=== PATIENT | female | born 1935 | race Caucasian/White ===

== ENCOUNTER → 2017-04-19 | Outpatient (CLI) | payer OTHER ==
[~2017-04-19] MED LIST: ACEDIPPM; ACYC800 PO; ALBU.083IS IH; ALBU90OI6 INH; ALLEGRA ALLERG180 MG PO; ALLO100; ALLO100 PO; AMLO10 PO; AMLO5; AMLO5 PO; ASCO500 PO; BETA1; BETA1 PO; BILBERRY; BILBERRY PO; BUDE6HFA; BUDE6HFA INH; BUME1; BUME2; BUME2 PO; CALCAVITD PO; CALTRATE; CARI350 PO; CEFA500ER PO; CHOL10002 PO; CLOP75; CLOP75 PO; CRESTOR; CYAN1000 PO; CYAN500; CYAN500 PO; CYCL10 PO; Cinnamon500 MG PO; DOCU100 PO; DOXE0.5; ESOM20; ESOM20 PO; FERR325 PO; FISH1000; FISH1000 PO; FLUT.05NI; FOSI10; GABA100; GABA100 PO; GABA400; GLIP5 PO; Glucosamine Ch1 EAC4 PO; HYDACE5 PO; IRON; IRON150C; LORPSEER24; LOSA50; LOSA50 PO; LUTEIN; MAGGLU250; MAGOXI400 PO; METPRE4DP PO; NIAC500; NIFE60ER; OCUVITE EYE +1 EACH PO; OMEP40CA12 PO; OMEPRAZOLE MAGN20 MG PO; OXYACE5T PO; OXYGEN; PARI1 PO; POTA10T; POTCHL20ER PO; PRAV20; PRED20 PO; QUIN300 PO; ROSU10TA PO; SALM50IP; SOMA250 MG PO; STOMUL PO; TIOT18; TIOT18 IH; TIOT18 INH; TRAM50 PO; Ultram50 MG PO; VALS80; VALS80 PO; ZOLP6.25 PO; [UNRECOGNIZED DRUG - OTHER]
== END ==
LOC: LAB 17:54
DX: N39.0 Urinary tract infection, site not specified (principal)
CPT/HCPCS: 87077; 87086; 87186

== ENCOUNTER → 2017-05-01 | Outpatient (CLI) | payer OTHER ==
[2017-05-01 13:21] LABS: Bilirubin, Urine Neg (Neg); Blood, Urine Neg (Neg); Glucose Qualitative, Urine Neg (Neg); Ketones, Urine Neg (Neg); Leukocyte Esterase, Urine 2+ (Neg); Nitrite, Urine Neg (Neg); Protein, Urine 2+ (Neg); Specific Gravity, Urine 1.015 (1.003-1.022); Urobilinogen, Urine NORM (Normal)
[2017-05-01 13:47] LABS: Appearance, Urine Clear (Clear); Color, Urine Yellow (P-Yellow)
[2017-05-01 13:49] LABS: Bacteria Few /hpf; Red Blood Cells, Urine Not Seen /hpf (0-2); Squamous Epithelial Cells Rare /hpf (Few)
== END ==
LOC: LAB 10:20
PROVIDERS: Nurse Practitioner Family
DX: N39.0 Urinary tract infection, site not specified (principal)
CPT/HCPCS: 81001; 87086

== ENCOUNTER → 2017-05-14 | Outpatient (CLI) | payer OTHER ==
[~2017-05-14] MED LIST changes: -CYAN500 PO; -METPRE4DP PO; -Ultram50 MG PO
== END | disposition home or self-care (01) ==
LOC: LAB SHORT 17:49 → LAB 17:49
DX: N39.0 Urinary tract infection, site not specified (principal)
CPT/HCPCS: 87086

== ENCOUNTER 2017-06-08 08:06 | Emergency (ER) | payer OTHER ==
[~2017-06-08] VITALS: Ht 165.1 cm; Wt 78.9 kg
[2017-06-08] MEDS ORDERED: ALLEGRA ALLERG180 MG PO (08:19)
[2017-06-08] MEDS ORDERED: ROSU10TA PO (08:24)
[2017-06-08] MEDS ORDERED: IRON150C (08:24)
[2017-06-08] MEDS ORDERED: CYAN500 PO (08:24)
[2017-06-08] MEDS ORDERED: TIOT18 INH (08:28)
[2017-06-08] MEDS ORDERED: GLIP5 PO (08:28)
[2017-06-08] MEDS ORDERED: MAGOXI400 PO (08:28)
[2017-06-08] MEDS ORDERED: METPRE4DP PO (10:00)
[2017-06-08] MEDS ORDERED: Ultram50 MG PO (10:00)
== END 2017-06-08 11:33 | disposition home or self-care (01) ==
LOC: ER 08:06
DX: M54.16 Radiculopathy, lumbar region (principal); Z88.6 Allergy status to analgesic agent; Z88.2 Allergy status to sulfonamides; Z88.8 Allergy status to other drugs, medicaments and biological substances; Z79.899 Other long term (current) drug therapy; Z86.73 Personal history of transient ischemic attack (TIA), and cerebral infarction without residual deficits; Z87.891 Personal history of nicotine dependence
CPT/HCPCS: 72100; 73502; 96372; 99283; J1100

== ENCOUNTER → 2018-02-21 | Outpatient (CLI) | payer OTHER ==
[~2018-02-21] MED LIST changes: +CYAN500 PO; +METPRE4DP PO; +Ultram50 MG PO
[2018-02-21 18:10] LABS: Bilirubin, Urine Neg (Neg); Blood, Urine Neg (Neg); Glucose Qualitative, Urine Neg (Neg); Ketones, Urine Neg (Neg); Leukocyte Esterase, Urine 1+ (Neg); Nitrite, Urine Neg (Neg); Protein, Urine 1+ (Neg); Specific Gravity, Urine 1.015 (1.003-1.022); Urobilinogen, Urine NORM (Normal)
[2018-02-21 18:44] LABS: Appearance, Urine Clear (Clear); Color, Urine Yellow (P-Yellow)
[2018-02-21 18:47] LABS: Bacteria Not Seen /hpf; Red Blood Cells, Urine Not Seen /hpf (0-2); Squamous Epithelial Cells Few /hpf (Few)
== END | disposition home or self-care (01) ==
LOC: LAB SHORT 10:59 → LAB 10:59 → LAB FUT 02-14 15:10
PROVIDERS: Nurse Practitioner Family
DX: R50.9 Fever, unspecified (principal)
CPT/HCPCS: 81001

== ENCOUNTER 2018-04-11 10:39 | Inpatient (IN) | payer OTHER ==
[~2018-04-11] VITALS: Ht 165.1 cm; Wt 71.2 kg
[~2018-04-11 10:39] MED LIST changes: +FISH OIL 1,2001 EAC4 PO; -FISH1000 PO; +GLUCOSAMINE CH1 EACH PO; -Glucosamine Ch1 EAC4 PO; +Magnesium500 MG PO; -SOMA250 MG PO; +SOMA350 MG PO; -VALS80 PO; +VALSARTAN40 MG PO
[2018-04-11 10:56] LABS: BASOPHILS ABSOLUTE AUTO 0.03 K/mm3 (0.00-0.23); BASOPHILS PERCENT AUTO 0 % (0-2); EOSINOPHILS ABSOLUTE AUTO 0.18 K/mm3 (0.00-0.68); EOSINOPHILS PERCENT AUTO 2 % (0-6); Hematocrit 35.3 % (33.0-51.0); Hemoglobin 10.8 g/dL (11.5-16.0); IMMATURE GRAN ABSOLUTE AUTO 0.05 K/mm3 (0.00-0.10); IMMATURE GRAN PERCENT AUTO 1 % (0-1); LYMPHOCYTES ABSOLUTE AUTO 1.74 K/mm3 (0.84-5.20); LYMPHOCYTES PERCENT AUTO 16 % (21-46); MONOCYTES ABSOLUTE AUTO 0.95 K/mm3 (0.16-1.47); MONOCYTES PERCENT AUTO 9 % (4-13); Mean Corpuscular HGB 28.6 pg (26.0-34.0); Mean Corpuscular HGB Conc 30.6 g/dL (31.5-36.5); Mean Corpuscular Volume 93 fL (80-100); Mean Platelet Volume 10.1 fL (9.1-12.4); NEUTROPHILS ABSOLUTE AUTO 8.06 K/mm3 (1.96-9.15); NEUTROPHILS PERCENT AUTO 73 % (41-73); Platelet Count 150 K/mm3 (150-400); RDW Standard Deviation 51.5 fL (35.1-46.3); Red Blood Cell Count 3.78 M/mm3 (3.80-5.20); White Blood Cell Count 11.01 K/mm3 (4.00-11.30)
[2018-04-11] MEDS ORDERED: OCUVITE EYE +1 EACH PO (11:22)
[2018-04-11 11:26] LABS: Alanine Aminotransfer (ALT/SGP 15 U/L (12-78); Albumin, Blood 3.2 g/dL (3.4-5.0); Albumin/Globulin Ratio 0.9 (0.8-1.8); Alk Phos 56 U/L (50-136); Anion Gap 8 mmol/L (6-16); Aspartate Aminotrans (AST/SGOT 14 U/L (12-37); Bilirubin, Total 0.5 mg/dL (0.1-1.0); Blood Urea Nitrogen 56 mg/dL (8-24); Bun/Creatinine Ratio 20.5 (12.0-20.0); CO2, Blood 28 mmol/L (21-32); Calcium, Blood 11.3 mg/dL (8.5-10.1); Chloride, Blood 102 mmol/L (98-108); Creatinine, Blood 2.73 mg/dL (0.40-1.00); Globulin, Blood 3.6 g/dL (2.2-4.0); Glomerular Filtration Rate 18 (60-); Glucose, Blood 154 mg/dL (70-99); Potassium, Blood 3.9 mmol/L (3.5-5.5); Sodium, Blood 138 mmol/L (136-145); Total Protein, Blood 6.8 g/dL (6.4-8.2); Troponin I <0.015 ng/mL (0.000-0.040)
[2018-04-11] MEDS ORDERED: TRAM50 PO (14:08)
--- NOTE | 2018-04-11 19:25 | NUR ---
SHIFT SUMMARY. 1644 PT ADMITTED TO MEDICAL FLOOR VIA GURNEY, TRANSFERED WITH SLIDER SHEET TO BED WITH 3 STAFF. A&OX3, PLEASANT, REPORTS FEELING TIRED. PT ON 2L O2 NC, REPORTS USING 2L O2 NC ONLY WITH SLEEP SECONDARY TO FATEMEH. LUNGS COARSE THROUGHOUT. NO OPEN AREAS OF SKIN.
[2018-04-12 05:15] LABS: BASOPHILS ABSOLUTE AUTO 0.02 K/mm3 (0.00-0.23); BASOPHILS PERCENT AUTO 0 % (0-2); EOSINOPHILS PERCENT AUTO 0 % (0-6); Hematocrit 29.1 % (33.0-51.0); Hemoglobin 9.2 g/dL (11.5-16.0); IMMATURE GRAN ABSOLUTE AUTO 0.04 K/mm3 (0.00-0.10); IMMATURE GRAN PERCENT AUTO 0 % (0-1); LYMPHOCYTES ABSOLUTE AUTO 0.83 K/mm3 (0.84-5.20); LYMPHOCYTES PERCENT AUTO 8 % (21-46); MONOCYTES ABSOLUTE AUTO 0.36 K/mm3 (0.16-1.47); MONOCYTES PERCENT AUTO 3 % (4-13); Mean Corpuscular HGB 28.8 pg (26.0-34.0); Mean Corpuscular HGB Conc 31.6 g/dL (31.5-36.5); Mean Corpuscular Volume 91 fL (80-100); Mean Platelet Volume 10.7 fL (9.1-12.4); NEUTROPHILS ABSOLUTE AUTO 9.43 K/mm3 (1.96-9.15); NEUTROPHILS PERCENT AUTO 88 % (41-73); Platelet Count 125 K/mm3 (150-400); RDW Coefficient Variation 15.1 % (11.7-14.2); RDW Standard Deviation 50.4 fL (35.1-46.3); Red Blood Cell Count 3.19 M/mm3 (3.80-5.20); White Blood Cell Count 10.68 K/mm3 (4.00-11.30)
--- NOTE | 2018-04-12 05:40 | NUR ---
SHIFT SUMMARY PT HAS SLEPT THROUGHOUT THE SHIFT. PT IS ON CONTINOUS SPO2 AND HAD NO SIGNIFCANT ALARMS. PT HAD NO COMPLAINTS OTHER THAN BEING VERY TIRED. PT HAD NO ACUTE ISSUES NOTED. PT IS CURRENTLY SLEEPING AND BREATHING EASY. CALL LIGHT IN REACH.
[2018-04-12 05:53] LABS: Albumin, Blood 2.7 g/dL (3.4-5.0); Albumin/Globulin Ratio 0.8 (0.8-1.8); Bilirubin, Total 0.2 mg/dL (0.1-1.0); Calcium, Blood 10.4 mg/dL (8.5-10.1); Creatinine, Blood 2.57 mg/dL (0.40-1.00); Globulin, Blood 3.5 g/dL (2.2-4.0); Potassium, Blood 4.1 mmol/L (3.5-5.5); Total Protein, Blood 6.2 g/dL (6.4-8.2)
--- NOTE | 2018-04-12 18:16 | NUR ---
SHIFT SUMMARY. A&OX3, PLEASANT, AWARE OF LIMIATIONS. PT DENIES SOB, NV. PT REPORTED PAIN TO THROAT THIS AM THAT WAS RELIEVED WITH APAP. TOLERATING IV ANTIBIOTICS WITHOUT ISSUE, CONTINUES WITH GENTLE IV HYDRATION. PLAN IS FOR PT TO D/C TO SNF, SS WORKING ON ADVANCED D/C PLANNING.
--- NOTE | 2018-04-13 05:14 | NUR ---
82 FEMALE PLEASANT AND COOPERATIVE ALL EVENING WITH STAFF. PT USED CALL LIGHT FOR ALL ASSISTANCE, DENIES PAIN, NAUSEA. PT WEARING 2L/M PER NASAL CANNULA ALL EVENING, NO COUGH NOTED--SPUTUM CULTURE STILL REQUIRED. PTS LUNG SOUNDS ARE COARSE THROUGHOUT. PT IS PLANNED FOR POSSIBLE DISCHARGE TO SNF. PTS BED LOW POSITION WIH CALL LIGHT AT SIDE.
--- NOTE | 2018-04-13 10:00 | NUR ---
PLEASANT COOP A/O. LIGHT BACK PAIN. MEDICATED WITH TYLENOL. H/R REG, MURMER NOTED. NO TELE. LUNGS CLEAR EXCEPT LIGHT CRACKLES LOW RT. ON 2L 02. REWP EASY, UNLABORED. BT X4 LAST BM YEST. VOIDS INCONT. IN ATTENDS. BED IN LOW POSTIION, CALL LITE IN REACH, CALLS APPROP
--- NOTE | 2018-04-13 13:30 | NUR ---
REPORT CALLED TO MERYL AT [facility]. IV PULLED INTACT. NO TELE. PEND PT TX TO [facility].
[2018-04-13] MEDS ORDERED: CEFU500T30 PO (13:35)
== END 2018-04-13 13:50 | DRG 683 ==
LOC: ER 10:39 → MEDS 14:32 → ER 16:36 → MEDS 16:36
PROVIDERS: Emergency Medicine; ADMIT Hospitalist
DX: N17.9 Acute kidney failure, unspecified (principal); J44.1 Chronic obstructive pulmonary disease with (acute) exacerbation; E86.0 Dehydration; Z99.81 Dependence on supplemental oxygen; I25.10 Atherosclerotic heart disease of native coronary artery without angina pectoris; K21.0 Gastro-esophageal reflux disease with esophagitis; G47.33 Obstructive sleep apnea (adult) (pediatric); I12.9 Hypertensive chronic kidney disease with stage 1 through stage 4 chronic kidney disease, or unspecified chronic kidney disease; E11.22 Type 2 diabetes mellitus with diabetic chronic kidney disease; N18.3 Chronic kidney disease, stage 3 (moderate); Z87.891 Personal history of nicotine dependence; E78.5 Hyperlipidemia, unspecified; E11.42 Type 2 diabetes mellitus with diabetic polyneuropathy; I35.0 Nonrheumatic aortic (valve) stenosis; R54 Age-related physical debility; R00.0 Tachycardia, unspecified
CPT/HCPCS: 36415; 71046; 80053; 82947; 84145; 84484; 85025; 93005; 93010; 94640; 94644; 94645; 94664; 94667; 94762; 96361; 96374; 97162; 97165; 97530; 98960; 99285-25; J0456; J0696; J1650; J2920; J2930; J7030; J7050

== ENCOUNTER 2018-05-27 10:25 | Emergency (ER) | payer OTHER ==
[~2018-05-27] VITALS: Ht 165.1 cm; Wt 71.2 kg
[~2018-05-27 10:25] MED LIST changes: +CEFU500T30 PO
[2018-05-27 10:58] LABS: BASOPHILS ABSOLUTE AUTO 0.03 K/mm3 (0.00-0.23); BASOPHILS PERCENT AUTO 0 % (0-2); EOSINOPHILS ABSOLUTE AUTO 0.07 K/mm3 (0.00-0.68); EOSINOPHILS PERCENT AUTO 1 % (0-6); Hematocrit 34.5 % (33.0-51.0); IMMATURE GRAN ABSOLUTE AUTO 0.06 K/mm3 (0.00-0.10); IMMATURE GRAN PERCENT AUTO 1 % (0-1); LYMPHOCYTES ABSOLUTE AUTO 0.78 K/mm3 (0.84-5.20); LYMPHOCYTES PERCENT AUTO 8 % (21-46); MONOCYTES ABSOLUTE AUTO 0.79 K/mm3 (0.16-1.47); MONOCYTES PERCENT AUTO 8 % (4-13); Mean Corpuscular HGB 29.9 pg (26.0-34.0); Mean Corpuscular Volume 103 fL (80-100); Mean Platelet Volume 9.8 fL (9.1-12.4); NEUTROPHILS ABSOLUTE AUTO 8.68 K/mm3 (1.96-9.15); NEUTROPHILS PERCENT AUTO 83 % (41-73); Platelet Count 128 K/mm3 (150-400); RDW Coefficient Variation 15.3 % (11.7-14.2); RDW Standard Deviation 57.5 fL (35.1-46.3); Red Blood Cell Count 3.34 M/mm3 (3.80-5.20); White Blood Cell Count 10.41 K/mm3 (4.00-11.30)
[2018-05-27 11:26] LABS: Albumin, Blood 2.9 g/dL (3.4-5.0); Albumin/Globulin Ratio 0.8 (0.8-1.8); Bilirubin, Total 0.5 mg/dL (0.1-1.0); Bun/Creatinine Ratio 13.3 (12.0-20.0); Calcium, Blood 9.5 mg/dL (8.5-10.1); Creatinine, Blood 1.88 mg/dL (0.40-1.00); Globulin, Blood 3.8 g/dL (2.2-4.0); Total Protein, Blood 6.7 g/dL (6.4-8.2)
[2018-05-27 12:24] LABS: Source, Urine Clean Catch
[2018-05-27 12:28] LABS: Bilirubin, Urine Neg (Neg); Blood, Urine Neg (Neg); Glucose Qualitative, Urine Neg (Neg); Ketones, Urine Neg (Neg); Leukocyte Esterase, Urine 1+ (Neg); Nitrite, Urine Neg (Neg); Protein, Urine 2+ (Neg); Specific Gravity, Urine 1.015 (1.003-1.022); Urobilinogen, Urine NORM (Normal)
[2018-05-27 12:47] LABS: Appearance, Urine Hazy (Clear); Bacteria Rare /hpf; Color, Urine Yellow (P-Yellow); Red Blood Cells, Urine Not Seen /hpf (0-2); Squamous Epithelial Cells Rare /hpf (Few); White Blood Cells, Urine 0-2 /hpf (0-5)
[2018-05-27 12:48] LABS: Granular Casts 0-2 /lpf ({null, 0}); Hyaline Casts 0-2 /lpf (0-2); Transitional Epithelial Cells Rare /hpf ({null, 0-Rare})
== END 2018-05-27 14:38 | disposition home or self-care (01) ==
LOC: ER 10:25
PROVIDERS: Emergency Medicine
DX: S09.90XA Unspecified injury of head, initial encounter (principal); N28.9 Disorder of kidney and ureter, unspecified; R53.1 Weakness; Z88.2 Allergy status to sulfonamides; Z88.6 Allergy status to analgesic agent; Z88.8 Allergy status to other drugs, medicaments and biological substances; Z79.899 Other long term (current) drug therapy; Z79.84 Long term (current) use of oral hypoglycemic drugs; Z86.73 Personal history of transient ischemic attack (TIA), and cerebral infarction without residual deficits; Z87.891 Personal history of nicotine dependence; W19.XXXA Unspecified fall, initial encounter
CPT/HCPCS: 70450; 80053; 81001; 83690; 85025; 87086; 93005; 93010; 99284-25

== ENCOUNTER 2018-07-13 19:40 | Emergency (ER) | payer OTHER ==
[~2018-07-13] VITALS: Ht 167.6 cm; Wt 75.8 kg
[2018-07-13] MEDS ORDERED: Carisoprodol350 MG (20:06)
[2018-07-13] MEDS ORDERED: GLUC500 PO (20:08)
[2018-07-13] MEDS ORDERED: IRON150C PO (20:08)
[2018-07-13] MEDS ORDERED: PARI1 PO (20:08)
[2018-07-13 20:10] LABS: BASOPHILS ABSOLUTE AUTO 0.01 K/mm3 (0.00-0.23); BASOPHILS PERCENT AUTO 0 % (0-2); EOSINOPHILS ABSOLUTE AUTO 0.21 K/mm3 (0.00-0.68); EOSINOPHILS PERCENT AUTO 2 % (0-6); Hematocrit 32.7 % (33.0-51.0); Hemoglobin 10.3 g/dL (11.5-16.0); IMMATURE GRAN ABSOLUTE AUTO 0.04 K/mm3 (0.00-0.10); IMMATURE GRAN PERCENT AUTO 0 % (0-1); LYMPHOCYTES ABSOLUTE AUTO 2.42 K/mm3 (0.84-5.20); LYMPHOCYTES PERCENT AUTO 26 % (21-46); MONOCYTES ABSOLUTE AUTO 0.66 K/mm3 (0.16-1.47); MONOCYTES PERCENT AUTO 7 % (4-13); Mean Corpuscular HGB Conc 31.5 g/dL (31.5-36.5); Mean Corpuscular Volume 92 fL (80-100); Mean Platelet Volume 9.8 fL (9.1-12.4); NEUTROPHILS PERCENT AUTO 64 % (41-73); Platelet Count 186 K/mm3 (150-400); RDW Coefficient Variation 14.6 % (11.7-14.2); RDW Standard Deviation 49.9 fL (35.1-46.3); Red Blood Cell Count 3.55 M/mm3 (3.80-5.20); White Blood Cell Count 9.34 K/mm3 (4.00-11.30)
[2018-07-13 20:35] LABS: Alanine Aminotransfer (ALT/SGP 17 U/L (12-78); Albumin, Blood 3.4 g/dL (3.4-5.0); Albumin/Globulin Ratio 0.9 (0.8-1.8); Alk Phos 69 U/L (50-136); Anion Gap 7 mmol/L (6-16); Aspartate Aminotrans (AST/SGOT 13 U/L (12-37); Bilirubin, Total 0.5 mg/dL (0.1-1.0); Blood Urea Nitrogen 28 mg/dL (8-24); Bun/Creatinine Ratio 17.1 (12.0-20.0); CO2, Blood 30 mmol/L (21-32); Calcium, Blood 9.8 mg/dL (8.5-10.1); Chloride, Blood 95 mmol/L (98-108); Creatinine, Blood 1.64 mg/dL (0.40-1.00); Globulin, Blood 3.6 g/dL (2.2-4.0); Glomerular Filtration Rate 32 (60-); Glucose, Blood 94 mg/dL (70-99); Potassium, Blood 3.5 mmol/L (3.5-5.5); Sodium, Blood 132 mmol/L (136-145); Troponin I <0.015 ng/mL (0.000-0.040)
== END 2018-07-13 22:47 | disposition home or self-care (01) ==
LOC: ER 19:40
PROVIDERS: Emergency Medicine
DX: R53.1 Weakness (principal); R55 Syncope and collapse; E16.2 Hypoglycemia, unspecified; Z88.6 Allergy status to analgesic agent; Z88.8 Allergy status to other drugs, medicaments and biological substances; Z88.5 Allergy status to narcotic agent; Z79.899 Other long term (current) drug therapy; Z79.84 Long term (current) use of oral hypoglycemic drugs; Z79.01 Long term (current) use of anticoagulants; Z86.73 Personal history of transient ischemic attack (TIA), and cerebral infarction without residual deficits; Z87.891 Personal history of nicotine dependence
CPT/HCPCS: 36415; 71046; 80053; 82947; 84484; 85025; 93005; 93010; 99284-25

== ENCOUNTER → 2018-08-08 | Outpatient (CLI) | payer OTHER ==
[~2018-08-08] MED LIST changes: +ALBU90OI INH; +AZIT250 PO; +Acetaminophen325 M1 PO; +B-COMPLEX WITH1 EAC1 PO; +BILBERRY EXTRACT PO; +BUDE10.22 INH; +Bumetanide1 MG; +Bumetanide1 MG PO; -CALCAVITD PO; +CALCIUM CITRAT1 EAC3 PO; +CEFD300 PO; +COLCHICINE0.6 MG PO; +Carisoprodol350 MG; +Colace100 MG PO; +Crestor20 MG PO; +FISH OIL 1,001000 MG PO; -FISH OIL 1,2001 EAC4 PO; +GLUC500 PO; +IRON150C PO; +IROSPAN 24/6 T1 EACH PO; +Iron Chews15 MG PO; +LOSA25 PO; +Lotrel 10-20 M1 EACH PO; +MITIGARE0.6 MG PO; +Magnesium Oxid500 MG PO; +Magnesium500 M1 PO; -Magnesium500 MG PO; +OMEP20ER PO; +OYSTER SHELL 51 EACH PO; +POTCHL20ER; +PROBIOTIC1 EAC1 PO; +SENN187 PO; +Sea-Omega 30 C1 EACH PO; +VISION FORMULA1 EACH PO; +Voltaren100 GM TOP
== END ==
LOC: LAB SHORT 18:21 → LAB 18:21
DX: R30.0 Dysuria (principal)
CPT/HCPCS: 87077; 87086; 87186

== ENCOUNTER 2018-08-16 13:22 | Inpatient (IN) | payer OTHER ==
[~2018-08-16] VITALS: Ht 167.6 cm; Wt 76.3 kg
[~2018-08-16 13:22] MED LIST changes: -ALBU90OI INH; -AZIT250 PO; -Acetaminophen325 M1 PO; -B-COMPLEX WITH1 EAC1 PO; -BILBERRY EXTRACT PO; -BUDE6HFA INH; -Bumetanide1 MG; -CEFD300 PO; -COLCHICINE0.6 MG PO; -Colace100 MG PO; -FISH OIL 1,001000 MG PO; -IROSPAN 24/6 T1 EACH PO; -Iron Chews15 MG PO; -LOSA25 PO; -Lotrel 10-20 M1 EACH PO; -MITIGARE0.6 MG PO; -Magnesium500 M1 PO; -OMEP20ER PO; -OYSTER SHELL 51 EACH PO; -POTCHL20ER; -PROBIOTIC1 EAC1 PO; -SENN187 PO; -VISION FORMULA1 EACH PO; -Voltaren100 GM TOP
[2018-08-16] MEDS ORDERED: COLCHICINE0.6 MG PO ×2 (13:55)
[2018-08-16 14:06] LABS: BASOPHILS ABSOLUTE AUTO 0.03 K/mm3 (0.00-0.23); BASOPHILS PERCENT AUTO 0 % (0-2); EOSINOPHILS ABSOLUTE AUTO 0.09 K/mm3 (0.00-0.68); EOSINOPHILS PERCENT AUTO 1 % (0-6); Hematocrit 35.6 % (33.0-51.0); Hemoglobin 11.2 g/dL (11.5-16.0); IMMATURE GRAN ABSOLUTE AUTO 0.07 K/mm3 (0.00-0.10); IMMATURE GRAN PERCENT AUTO 1 % (0-1); LYMPHOCYTES ABSOLUTE AUTO 1.19 K/mm3 (0.84-5.20); LYMPHOCYTES PERCENT AUTO 12 % (21-46); MONOCYTES ABSOLUTE AUTO 0.69 K/mm3 (0.16-1.47); MONOCYTES PERCENT AUTO 7 % (4-13); Mean Corpuscular HGB 28.8 pg (26.0-34.0); Mean Corpuscular HGB Conc 31.5 g/dL (31.5-36.5); Mean Corpuscular Volume 92 fL (80-100); Mean Platelet Volume 10.2 fL (9.1-12.4); NEUTROPHILS ABSOLUTE AUTO 8.08 K/mm3 (1.96-9.15); NEUTROPHILS PERCENT AUTO 80 % (41-73); Platelet Count 127 K/mm3 (150-400); RDW Coefficient Variation 15.5 % (11.7-14.2); RDW Standard Deviation 51.5 fL (35.1-46.3); Red Blood Cell Count 3.89 M/mm3 (3.80-5.20); White Blood Cell Count 10.15 K/mm3 (4.00-11.30)
[2018-08-16 14:30] LABS: Alanine Aminotransfer (ALT/SGP 26 U/L (12-78); Albumin, Blood 2.8 g/dL (3.4-5.0); Albumin/Globulin Ratio 0.8 (0.8-1.8); Alk Phos 66 U/L (50-136); Anion Gap 7 mmol/L (6-16); Aspartate Aminotrans (AST/SGOT 21 U/L (12-37); Bilirubin, Total 0.4 mg/dL (0.1-1.0); Blood Urea Nitrogen 35 mg/dL (8-24); Bun/Creatinine Ratio 21.7 (12.0-20.0); CO2, Blood 29 mmol/L (21-32); Calcium, Blood 8.9 mg/dL (8.5-10.1); Chloride, Blood 102 mmol/L (98-108); Creatinine, Blood 1.61 mg/dL (0.40-1.00); Globulin, Blood 3.3 g/dL (2.2-4.0); Glomerular Filtration Rate 33 (60-); Glucose, Blood 118 mg/dL (70-99); Potassium, Blood 3.7 mmol/L (3.5-5.5); Sodium, Blood 138 mmol/L (136-145); Total Protein, Blood 6.1 g/dL (6.4-8.2); Troponin I <0.015 ng/mL (0.000-0.040)
[2018-08-16 15:06] LABS: PCO2 Arterial 40.3 mmHg (35-45); PO2 Arterial 52.2 mmHg (80-100); pH Blood Arterial 7.48 (7.35-7.45)
--- NOTE | 2018-08-16 18:17 | NUR ---
PT ADMITTED 1615. QUITE PLEASANT THIS AFT. DENIES PAIN. LUNGS LIGHTLY WHEEZY T/O. LOUD MURMER NOTED. ON 2L O2 ONLY AT NIGHT NORMALLY, NOW IS ON 2L DAYS ALSO. 1 ASST BSC. BED IN LOW POSITION, CALL LITE IN REACH, CALLS APPROP
[2018-08-17 05:04] LABS: BASOPHILS ABSOLUTE AUTO 0.03 K/mm3 (0.00-0.23); BASOPHILS PERCENT AUTO 0 % (0-2); EOSINOPHILS PERCENT AUTO 0 % (0-6); Hematocrit 32.1 % (33.0-51.0); Hemoglobin 10.1 g/dL (11.5-16.0); IMMATURE GRAN ABSOLUTE AUTO 0.09 K/mm3 (0.00-0.10); IMMATURE GRAN PERCENT AUTO 1 % (0-1); LYMPHOCYTES ABSOLUTE AUTO 0.54 K/mm3 (0.84-5.20); LYMPHOCYTES PERCENT AUTO 5 % (21-46); MONOCYTES ABSOLUTE AUTO 0.23 K/mm3 (0.16-1.47); MONOCYTES PERCENT AUTO 2 % (4-13); Mean Corpuscular HGB 29.1 pg (26.0-34.0); Mean Corpuscular HGB Conc 31.5 g/dL (31.5-36.5); Mean Corpuscular Volume 93 fL (80-100); Mean Platelet Volume 10.3 fL (9.1-12.4); NEUTROPHILS ABSOLUTE AUTO 9.83 K/mm3 (1.96-9.15); NEUTROPHILS PERCENT AUTO 92 % (41-73); Platelet Count 126 K/mm3 (150-400); RDW Coefficient Variation 15.4 % (11.7-14.2); RDW Standard Deviation 52.3 fL (35.1-46.3); Red Blood Cell Count 3.47 M/mm3 (3.80-5.20); White Blood Cell Count 10.72 K/mm3 (4.00-11.30)
[2018-08-17 05:28] LABS: Albumin, Blood 2.6 g/dL (3.4-5.0); Albumin/Globulin Ratio 0.7 (0.8-1.8); Bilirubin, Total 0.3 mg/dL (0.1-1.0); Calcium, Blood 9.4 mg/dL (8.5-10.1); Creatinine, Blood 1.81 mg/dL (0.40-1.00); Globulin, Blood 3.7 g/dL (2.2-4.0); Magnesium, Blood 2.4 mg/dL (1.6-2.4); Potassium, Blood 4.2 mmol/L (3.5-5.5); Total Protein, Blood 6.3 g/dL (6.4-8.2)
--- NOTE | 2018-08-17 06:29 | NUR ---
SHIFT SUMMARY SPOKE TO CAREGIVER, ANGELINA, IN PATIENTS ROOM WITH PATIENT. ANGELINA STATES THAT PATIENT HAS A SLEEP STUDY SCHEDULED FOR SUNDAY NIGHT AND IS REQUESTING THE PHYSICIAN CALL HER TO SEE IF THE PATIENT MIGHT BE DISCHARGED BEFORE SUNDAY SO THAT SHE MAY HAVE THE SLEEP STUDY SCHEDULED. ANGELINA PHONE NUMBER [phone]. RECEIVED A CALL FROM CYDNEY CASTRO, PATIENTS DAUGHTER IN LAW, WHO STATES THAT IT IS OK FOR STAFF TO CALL ANGELINA REGARDING SLEEP STUDY BUT ANY MEDICAL QUESTIONS OR CONCERNS SHOULD BE DIRECTED TO HER (PHONE [phone]). PATIENT SLEPT THROUGH THE NIGHT WITH NO S/S OF DISTRESS.
[2018-08-17] MEDS ORDERED: CEFD300 PO ×2 (17:18)
[2018-08-17] MEDS ORDERED: AZIT250 PO ×2 (17:19)
[2018-08-17] MEDS ORDERED: PRED20 PO ×2 (17:20)
--- NOTE | 2018-08-17 18:43 | NUR ---
PT DISCHARGED THE PT VERBALIZED UNDERSTANDING OF THE DC INSTRUCTIONS, PTS PRESCRIPTIONS WERE FAXED TO [facility] REQUESTED, THE PT APPEARED TO BE BREATHING EASILY ON RA AT THE TIME OF DC, THE PT WAS TRANSFERD VIA WHEELCHAIR ACCOMPANIED BY THE HER GENETIC TECHNOLOGIST, PT WAS REMINDED TO CALL FOR FOLLOW UP APPOINTMENTS
== END 2018-08-17 18:48 | disposition home health service (06) | DRG 195 ==
LOC: ER 13:22 → MEDS 15:12 → ENPENDDIS 08-17 17:05 → MEDS 08-17 18:48
PROVIDERS: Emergency Medicine; ADMIT Student in an Organized Health Care Education/Training Program
DX: J18.9 Pneumonia, unspecified organism (principal); N18.3 Chronic kidney disease, stage 3 (moderate); E11.22 Type 2 diabetes mellitus with diabetic chronic kidney disease; J44.9 Chronic obstructive pulmonary disease, unspecified; E11.51 Type 2 diabetes mellitus with diabetic peripheral angiopathy without gangrene; E11.42 Type 2 diabetes mellitus with diabetic polyneuropathy; Z66 Do not resuscitate; K21.9 Gastro-esophageal reflux disease without esophagitis; G47.33 Obstructive sleep apnea (adult) (pediatric); E78.5 Hyperlipidemia, unspecified; I12.9 Hypertensive chronic kidney disease with stage 1 through stage 4 chronic kidney disease, or unspecified chronic kidney disease; E11.319 Type 2 diabetes mellitus with unspecified diabetic retinopathy without macular edema; I35.0 Nonrheumatic aortic (valve) stenosis; Z99.81 Dependence on supplemental oxygen; Z87.440 Personal history of urinary (tract) infections; Z88.6 Allergy status to analgesic agent; Z88.2 Allergy status to sulfonamides; Z87.891 Personal history of nicotine dependence; Z79.02 Long term (current) use of antithrombotics/antiplatelets; Z79.899 Other long term (current) drug therapy
CPT/HCPCS: 36415; 36600; 71046; 80053; 82803; 82947; 83605; 83735; 84484; 85025; 87040; 93005; 93010; 94640; 94760; 94761; 97116; 97161; 99285-25; J0456; J0696; J1650; J2930; J7050

== ENCOUNTER 2018-09-24 09:32 | Inpatient (IN) | payer OTHER ==
[~2018-09-24] VITALS: Ht 167.6 cm; Wt 73.9 kg
[~2018-09-24 09:32] MED LIST changes: +AZIT250 PO; +CEFD300 PO; +COLCHICINE0.6 MG PO
[2018-09-24 10:46] LABS: BASOPHILS ABSOLUTE AUTO 0.02 K/mm3 (0.00-0.23); BASOPHILS PERCENT AUTO 0 % (0-2); EOSINOPHILS ABSOLUTE AUTO 0.06 K/mm3 (0.00-0.68); EOSINOPHILS PERCENT AUTO 0 % (0-6); Hematocrit 37.1 % (33.0-51.0); Hemoglobin 11.5 g/dL (11.5-16.0); IMMATURE GRAN ABSOLUTE AUTO 0.08 K/mm3 (0.00-0.10); IMMATURE GRAN PERCENT AUTO 1 % (0-1); LYMPHOCYTES ABSOLUTE AUTO 0.93 K/mm3 (0.84-5.20); LYMPHOCYTES PERCENT AUTO 7 % (21-46); MONOCYTES ABSOLUTE AUTO 0.97 K/mm3 (0.16-1.47); MONOCYTES PERCENT AUTO 7 % (4-13); Mean Corpuscular HGB 28.8 pg (26.0-34.0); Mean Corpuscular Volume 93 fL (80-100); Mean Platelet Volume 9.8 fL (9.1-12.4); NEUTROPHILS ABSOLUTE AUTO 11.97 K/mm3 (1.96-9.15); NEUTROPHILS PERCENT AUTO 85 % (41-73); Platelet Count 187 K/mm3 (150-400); RDW Coefficient Variation 16.3 % (11.7-14.2); Red Blood Cell Count 3.99 M/mm3 (3.80-5.20); White Blood Cell Count 14.03 K/mm3 (4.00-11.30)
[2018-09-24 10:51] LABS: Source, Urine Catheter
[2018-09-24 10:56] LABS: Bilirubin, Urine Neg (Neg); Blood, Urine Neg (Neg); Glucose Qualitative, Urine Neg (Neg); Ketones, Urine Neg (Neg); Leukocyte Esterase, Urine Neg (Neg); Nitrite, Urine Neg (Neg); Protein, Urine Neg (Neg); Urobilinogen, Urine NORM (Normal)
[2018-09-24 10:57] LABS: Appearance, Urine Clear (Clear); Color, Urine Yellow (P-Yellow)
[2018-09-24 11:00] LABS: Albumin, Blood 3.2 g/dL (3.4-5.0); Albumin/Globulin Ratio 0.9 (0.8-1.8); Bilirubin, Total 0.5 mg/dL (0.1-1.0); Bun/Creatinine Ratio 11.2 (12.0-20.0); Calcium, Blood 8.5 mg/dL (8.5-10.1); Creatinine, Blood 1.6 mg/dL (0.40-1.00); Globulin, Blood 3.7 g/dL (2.2-4.0); Potassium, Blood 3.9 mmol/L (3.5-5.5); Total Protein, Blood 6.9 g/dL (6.4-8.2)
--- NOTE | 2018-09-24 15:16 | NUR ---
PT ARRIVED TO THE MEDICAL FLOOR FROM THE ER AROUND 1300, A/OX3, PLEASANT AND COOPERATIVE THE PT APPEARED TO BE BREATHING EASILY ON O2 @ 2L/MIN AT THIS TIME, THE PT WAS ORIENTED TO THE ROOM LAYOUT AND CALL SYSTEM, CALL LIGHT IN REACH, THE PT ANSWERED QUESTIONS APPROPRIATLY, PT DID NOT AMBULATE TO THE BED, SHA STATED THAT SHE WAS AFFRAID THAT SHE MIGHT FALL DUE TO LEG WEAKNESS, WILL CONTINUE TO MONITOR AND ASSESS FOR CHANGES
--- NOTE | 2018-09-24 17:27 | NUR ---
PT IS A/OX3, PLEASANT AND COOPERATIVE, THE PT IS UP WITH ASSIST, THE PT APPEARS TO BE BREATHING EASILY ON O2 @ 2L/MIN AT THIS TIME, NO COUGH NOTICED AT THIS TIME, THE PT WAS A NEW ER ADIMIT TODAY, PT REPORTS HAVING A FALL AT HOME TODAY, THE PT DENIES ANY PAIN AT THIS TIME, CALL LIGHT IN REACH WILL CONTINUE TO MONITOR FOR CHANGES
[2018-09-24] MEDS ORDERED: VISION FORMULA1 EACH PO (19:56)
[2018-09-24] MEDS ORDERED: Cinnamon500 MG PO (19:57)
[2018-09-24] MEDS ORDERED: Lotrel 10-20 M1 EACH PO (19:59)
[2018-09-24] MEDS ORDERED: Iron Chews15 MG PO (20:01)
[2018-09-25 05:24] LABS: BASOPHILS ABSOLUTE AUTO 0.02 K/mm3 (0.00-0.23); BASOPHILS PERCENT AUTO 0 % (0-2); EOSINOPHILS ABSOLUTE AUTO 0.05 K/mm3 (0.00-0.68); EOSINOPHILS PERCENT AUTO 0 % (0-6); Hematocrit 26.4 % (33.0-51.0); Hemoglobin 8.4 g/dL (11.5-16.0); IMMATURE GRAN ABSOLUTE AUTO 0.06 K/mm3 (0.00-0.10); IMMATURE GRAN PERCENT AUTO 1 % (0-1); LYMPHOCYTES ABSOLUTE AUTO 1.59 K/mm3 (0.84-5.20); LYMPHOCYTES PERCENT AUTO 14 % (21-46); MONOCYTES ABSOLUTE AUTO 0.69 K/mm3 (0.16-1.47); MONOCYTES PERCENT AUTO 6 % (4-13); Mean Corpuscular HGB 28.8 pg (26.0-34.0); Mean Corpuscular HGB Conc 31.8 g/dL (31.5-36.5); Mean Platelet Volume 9.5 fL (9.1-12.4); NEUTROPHILS ABSOLUTE AUTO 8.82 K/mm3 (1.96-9.15); NEUTROPHILS PERCENT AUTO 79 % (41-73); Platelet Count 118 K/mm3 (150-400); RDW Coefficient Variation 16.8 % (11.7-14.2); RDW Standard Deviation 55.6 fL (35.1-46.3); Red Blood Cell Count 2.92 M/mm3 (3.80-5.20); White Blood Cell Count 11.23 K/mm3 (4.00-11.30)
[2018-09-25 05:28] LABS: Mean Corpuscular Volume 90 fL (80-100)
[2018-09-25 05:48] LABS: Magnesium, Blood 2.2 mg/dL (1.6-2.4)
[2018-09-25 05:53] LABS: Anion Gap 7 mmol/L (6-16); Blood Urea Nitrogen 24 mg/dL (8-24); Bun/Creatinine Ratio 13.7 (12.0-20.0); CO2, Blood 26 mmol/L (21-32); Calcium, Blood 8.1 mg/dL (8.5-10.1); Chloride, Blood 108 mmol/L (98-108); Creatinine, Blood 1.75 mg/dL (0.40-1.00); Glomerular Filtration Rate 30 (60-); Glucose, Blood 109 mg/dL (70-99); Potassium, Blood 3.7 mmol/L (3.5-5.5); Sodium, Blood 141 mmol/L (136-145); Troponin I <0.015 ng/mL (0.000-0.040)
--- NOTE | 2018-09-25 06:47 | NUR ---
SHIFT SUMMARY PT IS AN 82 Y/O FEMALE, ADMITTED FOR PNA. SHE IS A&O X 3, AND ON BEDREST. SHE WAS MEDICATED ONCE WITH PRN TYLENOL FOR A HEADACHE. NO COMPLAINTS OF NAUSEA OR SOB. VITAL SIGNS WERE STABLE. PT HAD A POST VOID RESIDUAL BLADDER SCAN OF 883. AFTER CONSULTING HOSPITALIST DR WHITNEY, PT HAD A STRAIGHT CATH WITH 600 MLS OUT. PT'S HG DROPPED DURING THE NIGHT FROM 11.5 TO 8.4, AND HCT DROPPED FROM 37.1 TO 26.4. NO SIGNS OF ACTIVE BLEEDING, NO BLACK STOOLS NOTED. NO OTHER ACUTE CHANGES IN PT CONDITION NOTED. REPORT GIVEN TO ONCOMING RN.
--- NOTE | 2018-09-25 18:15 | NUR ---
PT IS A/OX3, PLEASANT AND COOPERATIVE, THE PT IS UP WITH ASSIST, THE PT APPEARS TO BE BREATHING EASILY ON O2 @ 2L/MIN VIA NC, TODAY THE PT WAS UP WITH THE PHYSICAL THERAPIST AND AMBULATED IN HER ROOM, THE PT WAS UP INTO THE CHAIR FOR MOST ALL OF THE DAY, THE PT WAS MEDICATED FOR DEWITT PAIN THIS AM X1, DEWITT RESOLVED AT THAT TIME, CALL LIGHT IN REACH, WILL CONTINUE TO MONITOR AND ASSESS FOR CHANGES
[2018-09-26] MEDS ORDERED: ALBU90OI INH (04:19)
[2018-09-26] MEDS ORDERED: AMLO10 PO (04:24)
[2018-09-26] MEDS ORDERED: BUDE6HFA INH (04:27)
[2018-09-26] MEDS ORDERED: Bumetanide1 MG (04:29)
[2018-09-26] MEDS ORDERED: POTCHL20ER (04:32)
[2018-09-26] MEDS ORDERED: CLOP75 PO (04:37)
[2018-09-26] MEDS ORDERED: GABA100 PO (05:10)
[2018-09-26] MEDS ORDERED: OMEP20ER PO (05:11)
[2018-09-26] MEDS ORDERED: ROSU10TA PO (05:12)
[2018-09-26] MEDS ORDERED: PARI1 PO (05:13)
[2018-09-26] MEDS ORDERED: MITIGARE0.6 MG PO (05:14)
[2018-09-26] MEDS ORDERED: FISH OIL 1,001000 MG PO (05:16)
[2018-09-26] MEDS ORDERED: SOMA350 MG PO (05:16)
[2018-09-26] MEDS ORDERED: IROSPAN 24/6 T1 EACH PO (05:20)
[2018-09-26] MEDS ORDERED: OYSTER SHELL 51 EACH PO (05:22)
[2018-09-26] MEDS ORDERED: Magnesium500 M1 PO (05:24)
[2018-09-26] MEDS ORDERED: Cinnamon500 MG PO ×2 (05:25→05:29)
[2018-09-26] MEDS ORDERED: ASCO500 PO (05:30)
[2018-09-26] MEDS ORDERED: PROBIOTIC1 EAC1 PO (05:32)
[2018-09-26] MEDS ORDERED: TIOT18 INH (05:33)
[2018-09-26] MEDS ORDERED: Voltaren100 GM TOP (05:36)
[2018-09-26] MEDS ORDERED: B-COMPLEX WITH1 EAC1 PO (05:37)
[2018-09-26] MEDS ORDERED: BILBERRY EXTRACT PO (05:38)
[2018-09-26 05:57] LABS: BASOPHILS ABSOLUTE AUTO 0.01 K/mm3 (0.00-0.23); BASOPHILS PERCENT AUTO 0 % (0-2); EOSINOPHILS ABSOLUTE AUTO 0.01 K/mm3 (0.00-0.68); EOSINOPHILS PERCENT AUTO 0 % (0-6); Hematocrit 25.5 % (33.0-51.0); Hemoglobin 8.2 g/dL (11.5-16.0); IMMATURE GRAN ABSOLUTE AUTO 0.05 K/mm3 (0.00-0.10); IMMATURE GRAN PERCENT AUTO 1 % (0-1); LYMPHOCYTES ABSOLUTE AUTO 1.13 K/mm3 (0.84-5.20); LYMPHOCYTES PERCENT AUTO 11 % (21-46); MONOCYTES ABSOLUTE AUTO 0.67 K/mm3 (0.16-1.47); MONOCYTES PERCENT AUTO 7 % (4-13); Mean Corpuscular HGB 28.6 pg (26.0-34.0); Mean Corpuscular HGB Conc 32.2 g/dL (31.5-36.5); Mean Corpuscular Volume 89 fL (80-100); Mean Platelet Volume 9.7 fL (9.1-12.4); NEUTROPHILS ABSOLUTE AUTO 8.37 K/mm3 (1.96-9.15); NEUTROPHILS PERCENT AUTO 82 % (41-73); Platelet Count 148 K/mm3 (150-400); RDW Coefficient Variation 16.3 % (11.7-14.2); RDW Standard Deviation 53.1 fL (35.1-46.3); Red Blood Cell Count 2.87 M/mm3 (3.80-5.20); White Blood Cell Count 10.24 K/mm3 (4.00-11.30)
[2018-09-26 06:19] LABS: Albumin, Blood 2.6 g/dL (3.4-5.0); Albumin/Globulin Ratio 0.8 (0.8-1.8); Bilirubin, Total 0.2 mg/dL (0.1-1.0); Bun/Creatinine Ratio 15.1 (12.0-20.0); Calcium, Blood 8.6 mg/dL (8.5-10.1); Creatinine, Blood 1.79 mg/dL (0.40-1.00); Globulin, Blood 3.2 g/dL (2.2-4.0); Magnesium, Blood 2.3 mg/dL (1.6-2.4); Phosphorus, Blood 3.4 mg/dL (2.5-4.9); Potassium, Blood 4.3 mmol/L (3.5-5.5); Total Protein, Blood 5.8 g/dL (6.4-8.2)
--- NOTE | 2018-09-26 07:48 | NUR ---
NOC SHIFT SUMMARY PT IS PLEASANT AND COOPERATIVE WITH CARE. VSS. LUNG SOUNDS CLEAR. ADMITTED FOR PNEUMONIA. ON 2LNC. NORMALLY ONLY USES O2 AT NIGHT. GRANDDAUTHER VOICED CONCERNS ABOUT PT RETURNING TO HOME BY HERSELF. PT REFUSES TO GO TO [facility] FOR CARE. NO ACUTE CHANGES NOTED THIS NIGHT. REPORT TO ONCOMING RN.
--- NOTE | 2018-09-26 18:45 | NUR ---
SHIFT SUMAMRY: NO ACUTE CHANGES TO REPORT THIS SHIFT. PT A&O; CALM AND COOPERATIVE WITH CARE. NO C/O PAIN THIS SHIFT. CKD S4; DR PALM FOLLOWING; PT VOIDING SPONTANEOUSLY. IV ABX CONTINUING. REPORT GIVEN TO ONCOMING RN.
[2018-09-27 05:06] LABS: BASOPHILS ABSOLUTE AUTO 0.01 K/mm3 (0.00-0.23); BASOPHILS PERCENT AUTO 0 % (0-2); EOSINOPHILS ABSOLUTE AUTO 0.05 K/mm3 (0.00-0.68); EOSINOPHILS PERCENT AUTO 1 % (0-6); Hematocrit 26.4 % (33.0-51.0); Hemoglobin 8.2 g/dL (11.5-16.0); IMMATURE GRAN ABSOLUTE AUTO 0.09 K/mm3 (0.00-0.10); IMMATURE GRAN PERCENT AUTO 1 % (0-1); LYMPHOCYTES PERCENT AUTO 18 % (21-46); MONOCYTES ABSOLUTE AUTO 0.55 K/mm3 (0.16-1.47); MONOCYTES PERCENT AUTO 6 % (4-13); Mean Corpuscular HGB 28.6 pg (26.0-34.0); Mean Corpuscular HGB Conc 31.1 g/dL (31.5-36.5); Mean Platelet Volume 9.8 fL (9.1-12.4); NEUTROPHILS ABSOLUTE AUTO 7.07 K/mm3 (1.96-9.15); NEUTROPHILS PERCENT AUTO 75 % (41-73); Platelet Count 168 K/mm3 (150-400); RDW Coefficient Variation 16.5 % (11.7-14.2); RDW Standard Deviation 55.9 fL (35.1-46.3); RETICULOCYTE ABSOLUTE 0.0755 M/mm3 (0.0200-0.1100); RETICULOCYTE COUNT PERCENT 2.63 % (0.50-2.50); Red Blood Cell Count 2.87 M/mm3 (3.80-5.20); White Blood Cell Count 9.47 K/mm3 (4.00-11.30)
[2018-09-27 05:17] LABS: Mean Corpuscular Volume 92 fL (80-100)
[2018-09-27 05:34] LABS: Albumin, Blood 2.6 g/dL (3.4-5.0); Albumin/Globulin Ratio 0.8 (0.8-1.8); Bilirubin, Total 0.1 mg/dL (0.1-1.0); Bun/Creatinine Ratio 15.1 (12.0-20.0); Calcium, Blood 9.5 mg/dL (8.5-10.1); Creatinine, Blood 2.32 mg/dL (0.40-1.00); Globulin, Blood 3.2 g/dL (2.2-4.0); Magnesium, Blood 2.3 mg/dL (1.6-2.4); Potassium, Blood 4.4 mmol/L (3.5-5.5); Total Protein, Blood 5.8 g/dL (6.4-8.2)
[2018-09-27 05:35] LABS: Percent Saturation 30.1 % (15.0-50.0)
--- NOTE | 2018-09-27 07:38 | NUR ---
NOC SHIFT SUMMARY PT IS PLEASANT AND COOPERATIVE WITH CARE. LUNG SOUNDS ARE CLEAR. VSS. SHE SPENT THE EVENING TALKING ON THE PHONE AND FELL TO SLEEP AROUND 2300. SLEPT MUCH OF NIGHT. NO COMPLAINT OF PAIN, SOB, OR DISCOMFORT. HER POST VOID RESIDUAL THIS MORNING WAS 82. VSS. APPEARS IN NO ACUTE DISTRESS. REPORT TO ONCOCMING RN.
--- NOTE | 2018-09-27 19:11 | NUR ---
SHIFT SUMMARY: NO ACUTE CHANGES TO REPORT THIS SHIFT. PT A&O; CALM AND COOPERATIVE WITH CARE. NO C/O PAIN THIS SHIFT. PT USES O2 @ 2L @ NOC; ROOM AIR DURING DAY. 1 UNIT PRBCs TRANSFUSED THIS SHIFT; PT TOLERATED WELL; AWAITING STOOL SAMPLE R/O GI BLEED; NO BM THIS SHIFT. WEAK GAIT; UP c 1-ASSIST; PT CALLS APPROPRIATELY. REPORT GIVEN TO ONCOMING RN.
[2018-09-28 05:16] LABS: Hematocrit 30.3 % (33.0-51.0); Hemoglobin 9.7 g/dL (11.5-16.0)
[2018-09-28 05:43] LABS: Albumin, Blood 2.7 g/dL (3.4-5.0); Anion Gap 7 mmol/L (6-16); Blood Urea Nitrogen 36 mg/dL (8-24); CO2, Blood 28 mmol/L (21-32); Chloride, Blood 106 mmol/L (98-108); Glomerular Filtration Rate 29 (60-); Glucose, Blood 123 mg/dL (70-99); Magnesium, Blood 2.2 mg/dL (1.6-2.4); Phosphorus, Blood 5.2 mg/dL (2.5-4.9); Potassium, Blood 4.5 mmol/L (3.5-5.5); Sodium, Blood 141 mmol/L (136-145)
--- NOTE | 2018-09-28 06:18 | NUR ---
SHIFT SUMMARY NO ACUTE CHANGES TONIGHT. 2L VIA NC DURING SLEEP, BASELINE FOR PT. STILL AWAITING STOOL SAMPLE TO R/O GI BLEED. VSS. PT MOSTLY A&O WITH MINOR FORGETFULNESS. 1 PER ASSIST TO BSC, GAIT STRENGTH IMPROVING. DENIES PAIN OR DISCOMFORT OF ANY SORT. PT RESTING IN BED AT THIS TIME, CALL LT IN REACH. WILL CONT TO MONITOR AND PROVIDE CARE UNTIL PRESUMED BY ONCOMING RN.
--- NOTE | 2018-09-28 09:00 | NUR ---
PT QUITE PLEASANT COOP A/O. PT FEELS READY TO DC TDAY. DENIES PAIN. EX CEPT SINUS HEADCHE. TYLENOL REQUESTED. H/R REG, RAMESH NOTED. NO TLE. LUNGS CLEAR, RESP EASY, UNLABORED. ON R.A. BT X4 LAST BM 2 DAYS. INCONT OCCATIONAL. 1 ASST TO BSC. BED IN LOW POSITION, CALL LITE IN REACH, CALLS APPROP DAUGHTER CALLED TO SET UP D/C WITH CAREGIVER. STATES AFTER 1PM IS FINE. WILL HAVE CAREGIVER PICK UPMEDS AT [place], M/[place]. BEFORE 1PM.
[2018-09-28] MEDS ORDERED: Acetaminophen325 M1 PO (12:52)
[2018-09-28] MEDS ORDERED: LOSA25 PO (12:53)
[2018-09-28] MEDS ORDERED: SENN187 PO (12:55)
[2018-09-28] MEDS ORDERED: CEFD300 PO (12:55)
[2018-09-28] MEDS ORDERED: Colace100 MG PO (12:55)
--- NOTE | 2018-09-28 15:46 | NUR ---
DISCHARGE REVIEWED WITH PT . PT VERBALIZED UNDERSTANDING OF MEDS AND INST. IV PULLED INTACT. NO TELE. PT DC WITH [facility] AT 1540. CALLED CAREGICERANGELINA TO ADVISE ON WAY.
== END 2018-09-28 15:45 | disposition home health service (06) | DRG 193 ==
LOC: ER 09:32 → MEDS 09:33
PROVIDERS: Emergency Medicine; Family Medicine; Internal Medicine Nephrology; ADMIT Hospitalist
DX: J18.1 Lobar pneumonia, unspecified organism (principal); J96.21 Acute and chronic respiratory failure with hypoxia; N17.9 Acute kidney failure, unspecified; J44.1 Chronic obstructive pulmonary disease with (acute) exacerbation; N18.4 Chronic kidney disease, stage 4 (severe); N25.81 Secondary hyperparathyroidism of renal origin; I50.30 Unspecified diastolic (congestive) heart failure; I13.0 Hypertensive heart and chronic kidney disease with heart failure and stage 1 through stage 4 chronic kidney disease, or unspecified chronic kidney disease; J44.0 Chronic obstructive pulmonary disease with (acute) lower respiratory infection; R62.7 Adult failure to thrive; I35.0 Nonrheumatic aortic (valve) stenosis; E11.319 Type 2 diabetes mellitus with unspecified diabetic retinopathy without macular edema; E11.42 Type 2 diabetes mellitus with diabetic polyneuropathy; E86.9 Volume depletion, unspecified; W19.XXXA Unspecified fall, initial encounter; D63.1 Anemia in chronic kidney disease; E11.22 Type 2 diabetes mellitus with diabetic chronic kidney disease; K21.9 Gastro-esophageal reflux disease without esophagitis; D69.6 Thrombocytopenia, unspecified; E88.09 Other disorders of plasma-protein metabolism, not elsewhere classified; H90.5 Unspecified sensorineural hearing loss; M19.90 Unspecified osteoarthritis, unspecified site; M10.9 Gout, unspecified; E78.5 Hyperlipidemia, unspecified; Z88.6 Allergy status to analgesic agent; Z88.2 Allergy status to sulfonamides; Z79.02 Long term (current) use of antithrombotics/antiplatelets; Z79.899 Other long term (current) drug therapy
CPT/HCPCS: 36415; 36416; 36430; 71046; 76770; 80048; 80053; 80069; 81003; 82728; 83540; 83550; 83605; 83735; 84100; 84145; 84484; 85014; 85018; 85025; 85045; 86850; 86900; 86901; 86923; 87040; 87086; 92610; 94640; 94760; 94761; 96365; 97110; 97112; 97116; 97162; 97530; 99285-25; A9270; J0456; J0696; J0881; J1650; J2543; J7030; J7050; J7512; P9016; P9612

== ENCOUNTER 2018-10-06 10:44 | Emergency (ER) | payer OTHER ==
[~2018-10-06] VITALS: Ht 165.1 cm; Wt 75.8 kg
[~2018-10-06 10:44] MED LIST changes: +ALBU90OI INH; +Acetaminophen325 M1 PO; +B-COMPLEX WITH1 EAC1 PO; +BILBERRY EXTRACT PO; +BUDE6HFA INH; +Bumetanide1 MG; +Colace100 MG PO; +FISH OIL 1,001000 MG PO; +IROSPAN 24/6 T1 EACH PO; +Iron Chews15 MG PO; +LOSA25 PO; +Lotrel 10-20 M1 EACH PO; +MITIGARE0.6 MG PO; +Magnesium500 M1 PO; +OMEP20ER PO; +OYSTER SHELL 51 EACH PO; +POTCHL20ER; +PROBIOTIC1 EAC1 PO; +SENN187 PO; +VISION FORMULA1 EACH PO; +Voltaren100 GM TOP
== END 2018-10-06 14:28 | disposition home or self-care (01) ==
LOC: ER 10:44
DX: S30.0XXA Contusion of lower back and pelvis, initial encounter (principal); G43.909 Migraine, unspecified, not intractable, without status migrainosus; W06.XXXA Fall from bed, initial encounter; Z86.73 Personal history of transient ischemic attack (TIA), and cerebral infarction without residual deficits; Z87.891 Personal history of nicotine dependence; Z88.6 Allergy status to analgesic agent; Z88.8 Allergy status to other drugs, medicaments and biological substances; Z88.2 Allergy status to sulfonamides; Z79.899 Other long term (current) drug therapy
CPT/HCPCS: 72100; 72170; 82947; 99284-25

== ENCOUNTER → 2018-10-08 | Outpatient (CLI) | payer OTHER ==
[2018-10-08 13:46] LABS: Albumin, Blood 2.7 g/dL (3.4-5.0); Albumin/Globulin Ratio 0.8 (0.8-1.8); Bilirubin, Total 0.4 mg/dL (0.1-1.0); Bun/Creatinine Ratio 14.8 (12.0-20.0); Calcium, Blood 9.3 mg/dL (8.5-10.1); Creatinine, Blood 1.42 mg/dL (0.40-1.00); Globulin, Blood 3.6 g/dL (2.2-4.0); Phosphorus, Blood 3.6 mg/dL (2.5-4.9); Potassium, Blood 3.6 mmol/L (3.5-5.5); Total Protein, Blood 6.3 g/dL (6.4-8.2)
[2018-10-08 14:38] LABS: Percent Saturation 12.3 % (15.0-50.0)
[2018-10-09 20:05] LABS: Thyroid Stimulating Hormone 1.22 uIU/mL (0.360-4.800)
== END | disposition home or self-care (01) ==
LOC: LAB 09:30 → LAB SHORT 09:30
PROVIDERS: Family Medicine
DX: E11.22 Type 2 diabetes mellitus with diabetic chronic kidney disease (principal); N18.9 Chronic kidney disease, unspecified; D63.1 Anemia in chronic kidney disease; J18.9 Pneumonia, unspecified organism; D51.9 Vitamin B12 deficiency anemia, unspecified
CPT/HCPCS: 80053; 82607; 82728; 82746; 83036; 83540; 83550; 83970; 84100; 84443; 85018

== ENCOUNTER → 2018-10-09 | Outpatient (CLI) | payer OTHER ==
[2018-10-09 08:36] LABS: Source, Urine Clean Catch
[2018-10-09 12:48] LABS: Bilirubin, Urine Neg (Neg); Blood, Urine Neg (Neg); Glucose Qualitative, Urine Neg (Neg); Ketones, Urine Neg (Neg); Leukocyte Esterase, Urine 1+ (Neg); Nitrite, Urine Neg (Neg); Protein, Urine 2+ (Neg); Specific Gravity, Urine 1.015 (1.003-1.022); Urobilinogen, Urine NORM (Normal)
[2018-10-09 13:07] LABS: Appearance, Urine Hazy (Clear); Bacteria Rare /hpf; Color, Urine Yellow (P-Yellow); Red Blood Cells, Urine Not Seen /hpf (0-2); Squamous Epithelial Cells Few /hpf (Few)
== END | disposition home or self-care (01) ==
LOC: LAB SHORT 08:35 → LAB 08:35
PROVIDERS: Nurse Practitioner Family
DX: R30.0 Dysuria (principal)
CPT/HCPCS: 81001; 87077; 87086; 87186

== ENCOUNTER 2018-10-20 13:41 | Emergency (ER) | payer OTHER ==
[~2018-10-20] VITALS: Ht 165.1 cm; Wt 75.8 kg
[2018-10-20 14:20] LABS: Calcium, Ionized (POC) 1.19 mmol/L (1.10-1.46); Chloride (POC) 100 mmol/L (98-108); Creatinine (POC) 1.6 mg/dL (0.6-1.0); Glucose (ISTAT POC) 120 mg/dL (70-99); Hemoglobin (POC) 12.2 g/dL (12.0-16.0); Potassium (POC) 3.3 mmol/L (3.5-5.5); Sodium (POC) 138 mmol/L (135-148); Total CO2 (POC) 25 mmol/L (21-32)
[2018-10-20 15:27] LABS: Source, Urine Catheter
[2018-10-20 15:32] LABS: Appearance, Urine Hazy (Clear); Bilirubin, Urine Neg (Neg); Blood, Urine 1+ (Neg); Color, Urine Yellow (P-Yellow); Glucose Qualitative, Urine Neg (Neg); Ketones, Urine Neg (Neg); Leukocyte Esterase, Urine 3+ (Neg); Nitrite, Urine Neg (Neg); Protein, Urine 2+ (Neg); Urobilinogen, Urine NORM (Normal)
[2018-10-20 16:13] LABS: White Blood Cells, Urine 25-50 /hpf (0-5)
[2018-10-20 16:14] LABS: Bacteria Many /hpf; Squamous Epithelial Cells Few /hpf (Few)
== END 2018-10-20 15:56 | disposition home or self-care (01) ==
LOC: ER 13:41
PROVIDERS: Emergency Medicine
DX: N39.0 Urinary tract infection, site not specified (principal); R51 Headache; I12.9 Hypertensive chronic kidney disease with stage 1 through stage 4 chronic kidney disease, or unspecified chronic kidney disease; E11.22 Type 2 diabetes mellitus with diabetic chronic kidney disease; N18.9 Chronic kidney disease, unspecified; M10.9 Gout, unspecified; E78.5 Hyperlipidemia, unspecified; Z87.891 Personal history of nicotine dependence; Z88.6 Allergy status to analgesic agent; Z88.2 Allergy status to sulfonamides; Z88.8 Allergy status to other drugs, medicaments and biological substances; Z79.899 Other long term (current) drug therapy; Z79.02 Long term (current) use of antithrombotics/antiplatelets
CPT/HCPCS: 36415; 80047; 81001; 85014; 87077; 87086; 87186; 99284; A9270; P9612

== ENCOUNTER 2018-10-21 18:06 | Emergency (ER) | payer OTHER ==
[~2018-10-21] VITALS: Ht 167.6 cm; Wt 75.8 kg
== END 2018-10-21 20:41 | disposition home or self-care (01) ==
LOC: ER 18:06
DX: I12.9 Hypertensive chronic kidney disease with stage 1 through stage 4 chronic kidney disease, or unspecified chronic kidney disease (principal); E11.22 Type 2 diabetes mellitus with diabetic chronic kidney disease; N18.3 Chronic kidney disease, stage 3 (moderate); D63.1 Anemia in chronic kidney disease; E11.40 Type 2 diabetes mellitus with diabetic neuropathy, unspecified; E11.319 Type 2 diabetes mellitus with unspecified diabetic retinopathy without macular edema; J44.9 Chronic obstructive pulmonary disease, unspecified; K21.9 Gastro-esophageal reflux disease without esophagitis; M10.9 Gout, unspecified; Z87.891 Personal history of nicotine dependence; Z88.6 Allergy status to analgesic agent; Z88.8 Allergy status to other drugs, medicaments and biological substances; Z88.2 Allergy status to sulfonamides; Z79.899 Other long term (current) drug therapy; Z79.02 Long term (current) use of antithrombotics/antiplatelets
CPT/HCPCS: 36415; 96374; 96375; 99284-25; J0360; J1200; J2765; J3010

== ENCOUNTER → 2018-12-18 | Outpatient (CLI) | payer OTHER ==
[~2018-12-18] MED LIST changes: +CEFP200 PO
== END | disposition home or self-care (01) ==
LOC: LAB SHORT 10:20 → LAB 10:20
DX: T14.8XXS Other injury of unspecified body region, sequela (principal)
CPT/HCPCS: 87070; 87205

== ENCOUNTER 2019-01-08 12:48 | Emergency (ER) | payer OTHER ==
[~2019-01-08] VITALS: Ht 165.1 cm; Wt 71.7 kg
[2019-01-08 13:44] LABS: BASOPHILS ABSOLUTE AUTO 0.03 K/mm3 (0.00-0.23); BASOPHILS PERCENT AUTO 1 % (0-2); EOSINOPHILS ABSOLUTE AUTO 0.13 K/mm3 (0.00-0.68); EOSINOPHILS PERCENT AUTO 3 % (0-6); Hematocrit 37.3 % (33.0-51.0); IMMATURE GRAN ABSOLUTE AUTO 0.01 K/mm3 (0.00-0.10); IMMATURE GRAN PERCENT AUTO 0 % (0-1); LYMPHOCYTES ABSOLUTE AUTO 1.45 K/mm3 (0.84-5.20); LYMPHOCYTES PERCENT AUTO 32 % (21-46); MONOCYTES ABSOLUTE AUTO 0.58 K/mm3 (0.16-1.47); MONOCYTES PERCENT AUTO 13 % (4-13); Mean Corpuscular HGB 28.8 pg (26.0-34.0); Mean Corpuscular HGB Conc 32.2 g/dL (31.5-36.5); Mean Corpuscular Volume 89 fL (80-100); Mean Platelet Volume 9.6 fL (9.1-12.4); NEUTROPHILS ABSOLUTE AUTO 2.33 K/mm3 (1.96-9.15); NEUTROPHILS PERCENT AUTO 51 % (41-73); Platelet Count 142 K/mm3 (150-400); RDW Coefficient Variation 14.2 % (11.7-14.2); RDW Standard Deviation 46.5 fL (35.1-46.3); Red Blood Cell Count 4.17 M/mm3 (3.80-5.20); White Blood Cell Count 4.53 K/mm3 (4.00-11.30)
[2019-01-08 14:04] LABS: Albumin, Blood 3.4 g/dL (3.4-5.0); Bilirubin, Total 0.6 mg/dL (0.1-1.0); Bun/Creatinine Ratio 13.5 (12.0-20.0); Calcium, Blood 8.9 mg/dL (8.5-10.1); Creatinine, Blood 1.55 mg/dL (0.40-1.00); Globulin, Blood 3.4 g/dL (2.2-4.0); Potassium, Blood 3.6 mmol/L (3.5-5.5); Total Protein, Blood 6.8 g/dL (6.4-8.2)
[2019-01-08 14:22] LABS: Source, Urine Catheter
[2019-01-08 14:25] LABS: Bilirubin, Urine Neg (Neg); Blood, Urine 4+ (Neg); Glucose Qualitative, Urine Neg (Neg); Ketones, Urine Neg (Neg); Leukocyte Esterase, Urine Neg (Neg); Nitrite, Urine Neg (Neg); Protein, Urine 2+ (Neg); Urobilinogen, Urine NORM (Normal)
[2019-01-08 14:38] LABS: Appearance, Urine Clear (Clear); Color, Urine Yellow (P-Yellow); Granular Casts 0-2 /lpf (0)
[2019-01-08 14:39] LABS: Bacteria Few /hpf; Squamous Epithelial Cells Few /hpf (Few); White Blood Cells, Urine 0-2 /hpf (0-5)
== END 2019-01-08 15:56 | disposition home or self-care (01) ==
LOC: ER 12:48
PROVIDERS: Emergency Medicine
DX: R41.0 Disorientation, unspecified (principal); Z88.6 Allergy status to analgesic agent; Z88.8 Allergy status to other drugs, medicaments and biological substances; Z88.2 Allergy status to sulfonamides; Z79.899 Other long term (current) drug therapy; I12.9 Hypertensive chronic kidney disease with stage 1 through stage 4 chronic kidney disease, or unspecified chronic kidney disease; N18.3 Chronic kidney disease, stage 3 (moderate); E78.5 Hyperlipidemia, unspecified; K21.9 Gastro-esophageal reflux disease without esophagitis; E11.40 Type 2 diabetes mellitus with diabetic neuropathy, unspecified; Z86.73 Personal history of transient ischemic attack (TIA), and cerebral infarction without residual deficits; E11.319 Type 2 diabetes mellitus with unspecified diabetic retinopathy without macular edema; Z87.891 Personal history of nicotine dependence
CPT/HCPCS: 36415; 80053; 81001; 85025; 99284-25; P9612

== ENCOUNTER → 2019-01-08 | Outpatient (CLI) | payer OTHER ==
[2019-01-08 16:22] LABS: Bilirubin, Urine Neg (Neg); Blood, Urine Neg (Neg); Glucose Qualitative, Urine Neg (Neg); Ketones, Urine Neg (Neg); Leukocyte Esterase, Urine 1+ (Neg); Nitrite, Urine Neg (Neg); Protein, Urine 2+ (Neg); Urobilinogen, Urine NORM (Normal)
[2019-01-08 16:33] LABS: Appearance, Urine Clear (Clear); Color, Urine Yellow (P-Yellow)
[2019-01-08 16:34] LABS: Bacteria Few /hpf; Mucus Light (0-Heavy); Red Blood Cells, Urine 0-2 /hpf (0-2); Squamous Epithelial Cells Rare /hpf (Few)
== END ==
LOC: LAB 14:03 → LAB SHORT 14:03
PROVIDERS: Nurse Practitioner Family
DX: R30.0 Dysuria (principal)
CPT/HCPCS: 81001; 87086

== ENCOUNTER 2019-01-16 09:10 | Emergency (ER) | payer OTHER ==
[~2019-01-16] VITALS: Ht 167.6 cm; Wt 72.1 kg
[2019-01-16 10:06] LABS: BASOPHILS ABSOLUTE AUTO 0.01 K/mm3 (0.00-0.23); BASOPHILS PERCENT AUTO 0 % (0-2); EOSINOPHILS ABSOLUTE AUTO 0.07 K/mm3 (0.00-0.68); EOSINOPHILS PERCENT AUTO 1 % (0-6); Hematocrit 36.1 % (33.0-51.0); Hemoglobin 11.7 g/dL (11.5-16.0); IMMATURE GRAN ABSOLUTE AUTO 0.02 K/mm3 (0.00-0.10); IMMATURE GRAN PERCENT AUTO 0 % (0-1); LYMPHOCYTES ABSOLUTE AUTO 1.57 K/mm3 (0.84-5.20); LYMPHOCYTES PERCENT AUTO 28 % (21-46); MONOCYTES ABSOLUTE AUTO 0.66 K/mm3 (0.16-1.47); MONOCYTES PERCENT AUTO 12 % (4-13); Mean Corpuscular HGB 28.5 pg (26.0-34.0); Mean Corpuscular HGB Conc 32.4 g/dL (31.5-36.5); Mean Corpuscular Volume 88 fL (80-100); Mean Platelet Volume 9.5 fL (9.1-12.4); NEUTROPHILS ABSOLUTE AUTO 3.36 K/mm3 (1.96-9.15); NEUTROPHILS PERCENT AUTO 59 % (41-73); Platelet Count 141 K/mm3 (150-400); RDW Coefficient Variation 14.6 % (11.7-14.2); RDW Standard Deviation 46.8 fL (35.1-46.3); White Blood Cell Count 5.69 K/mm3 (4.00-11.30)
[2019-01-16 10:18] LABS: Albumin, Blood 3.5 g/dL (3.4-5.0); Albumin/Globulin Ratio 1.1 (0.8-1.8); Bilirubin, Total 0.4 mg/dL (0.1-1.0); Calcium, Blood 11.9 mg/dL (8.5-10.1); Creatinine, Blood 1.67 mg/dL (0.40-1.00); Globulin, Blood 3.2 g/dL (2.2-4.0); Potassium, Blood 3.9 mmol/L (3.5-5.5); Total Protein, Blood 6.7 g/dL (6.4-8.2)
[2019-01-16] MEDS ORDERED: OCUVITE ADULT1 EAC1 PO (10:29)
[2019-01-16] MEDS ORDERED: Vitamin D2000 UNIT PO (10:30)
[2019-01-16] MEDS ORDERED: CITA10S PO (10:32)
[2019-01-16] MEDS ORDERED: VOLTAREN100 GM TOP (10:32)
[2019-01-16] MEDS ORDERED: TRAM50 PO (10:33)
[2019-01-16 10:58] LABS: Source, Urine Catheter
[2019-01-16 11:01] LABS: Appearance, Urine Clear (Clear); Bilirubin, Urine Neg (Neg); Blood, Urine Neg (Neg); Color, Urine Yellow (P-Yellow); Glucose Qualitative, Urine Neg (Neg); Ketones, Urine Neg (Neg); Leukocyte Esterase, Urine Neg (Neg); Nitrite, Urine Neg (Neg); Protein, Urine Neg (Neg); Urobilinogen, Urine NORM (Normal)
[2019-01-17] MEDS ORDERED: TRAM50 PO (19:52)
== END 2019-01-16 13:52 | disposition home or self-care (01) ==
LOC: ER 09:10
PROVIDERS: Emergency Medicine
DX: R53.1 Weakness (principal); R33.9 Retention of urine, unspecified; I10 Essential (primary) hypertension; Z79.899 Other long term (current) drug therapy; Z87.891 Personal history of nicotine dependence
CPT/HCPCS: 36415; 51701; 51702; 51798; 80053; 81003; 85025; 93005; 93010; 99284-25

== ENCOUNTER 2019-01-17 18:03 | Observation (INO) | payer OTHER ==
[~2019-01-17] VITALS: Ht 157.5 cm; Wt 71.8 kg
[~2019-01-17 18:03] MED LIST changes: +CITA10S PO; +OCUVITE ADULT1 EAC1 PO; +VOLTAREN100 GM TOP; +Vitamin D2000 UNIT PO
[2019-01-17 18:32] LABS: BASOPHILS ABSOLUTE AUTO 0.02 K/mm3 (0.00-0.23); BASOPHILS PERCENT AUTO 0 % (0-2); EOSINOPHILS ABSOLUTE AUTO 0.09 K/mm3 (0.00-0.68); EOSINOPHILS PERCENT AUTO 2 % (0-6); Hemoglobin 11.9 g/dL (11.5-16.0); IMMATURE GRAN ABSOLUTE AUTO 0.03 K/mm3 (0.00-0.10); IMMATURE GRAN PERCENT AUTO 1 % (0-1); LYMPHOCYTES ABSOLUTE AUTO 1.69 K/mm3 (0.84-5.20); LYMPHOCYTES PERCENT AUTO 29 % (21-46); MONOCYTES ABSOLUTE AUTO 0.66 K/mm3 (0.16-1.47); MONOCYTES PERCENT AUTO 11 % (4-13); Mean Corpuscular HGB 29.2 pg (26.0-34.0); Mean Corpuscular HGB Conc 32.2 g/dL (31.5-36.5); Mean Platelet Volume 9.3 fL (9.1-12.4); NEUTROPHILS ABSOLUTE AUTO 3.32 K/mm3 (1.96-9.15); NEUTROPHILS PERCENT AUTO 57 % (41-73); Platelet Count 146 K/mm3 (150-400); RDW Coefficient Variation 14.6 % (11.7-14.2); RDW Standard Deviation 48.6 fL (35.1-46.3); Red Blood Cell Count 4.08 M/mm3 (3.80-5.20); White Blood Cell Count 5.81 K/mm3 (4.00-11.30)
[2019-01-17 18:37] LABS: Mean Corpuscular Volume 91 fL (80-100)
[2019-01-17 18:55] LABS: Albumin, Blood 3.4 g/dL (3.4-5.0); Albumin/Globulin Ratio 1.1 (0.8-1.8); Bilirubin, Total 0.3 mg/dL (0.1-1.0); Bun/Creatinine Ratio 15.2 (12.0-20.0); Calcium, Blood 11.5 mg/dL (8.5-10.1); Creatinine, Blood 1.78 mg/dL (0.40-1.00); Globulin, Blood 3.1 g/dL (2.2-4.0); Potassium, Blood 3.6 mmol/L (3.5-5.5); Total Protein, Blood 6.5 g/dL (6.4-8.2)
[2019-01-17] MEDS ORDERED: TRAM50 PO (19:52)
[2019-01-18 04:39] LABS: Hematocrit 37.7 % (33.0-51.0); Hemoglobin 11.9 g/dL (11.5-16.0); Mean Corpuscular HGB Conc 31.6 g/dL (31.5-36.5); Mean Corpuscular Volume 92 fL (80-100); Platelet Count 144 K/mm3 (150-400); RDW Coefficient Variation 14.4 % (11.7-14.2); RDW Standard Deviation 48.7 fL (35.1-46.3); Red Blood Cell Count 4.11 M/mm3 (3.80-5.20); White Blood Cell Count 4.64 K/mm3 (4.00-11.30)
[2019-01-18 05:00] LABS: Albumin, Blood 3.5 g/dL (3.4-5.0); Bilirubin, Total 0.4 mg/dL (0.1-1.0); Bun/Creatinine Ratio 15.7 (12.0-20.0); Calcium, Blood 11.6 mg/dL (8.5-10.1); Creatinine, Blood 1.72 mg/dL (0.40-1.00); Globulin, Blood 3.6 g/dL (2.2-4.0); Potassium, Blood 3.6 mmol/L (3.5-5.5); Total Protein, Blood 7.1 g/dL (6.4-8.2)
[2019-01-18 05:22] LABS: Source, Urine Catheter
[2019-01-18 05:27] LABS: Bilirubin, Urine Neg (Neg); Blood, Urine Neg (Neg); Glucose Qualitative, Urine Neg (Neg); Ketones, Urine 1+ (Neg); Leukocyte Esterase, Urine Neg (Neg); Nitrite, Urine Neg (Neg); Protein, Urine 2+ (Neg); Specific Gravity, Urine 1.025 (1.003-1.022); Urobilinogen, Urine NORM (Normal)
[2019-01-18 05:39] LABS: Appearance, Urine Clear (Clear); Color, Urine Yellow (P-Yellow)
[2019-01-18 05:41] LABS: Amorphous Mod (0-Heavy); Bacteria Few /hpf; Red Blood Cells, Urine Not Seen /hpf (0-2); Squamous Epithelial Cells Rare /hpf (Few); White Blood Cells, Urine 0-2 /hpf (0-5)
[2019-01-18 05:42] LABS: Granular Casts 0-2 /lpf (0)
--- NOTE | 2019-01-18 06:10 | NUR ---
SHIFT SUMMARY PT WAS A NEW ADMIT DURING THE NIGHT, ARRIVING ON THE FLOOR AT 0027. SHE IS A&O X 3, THOUGH FORGETFUL. PT IS ON BEDREST, SHE HAS STATED THAT SHE "DOESN'T FEEL STRONG ENOUGH TO STAND UP". PT WAS ADMITTED WITH A GILLETTE, WHICH WAS CHANGED OUT AND A UA SENT PER PROTOCOL. PT'S BP WAS SLIGHTLY ELEVATED ON ADMISSION AT 163/79. ALL OTHER VITALS STABLE. NO COMPLAINTS OF ACUTE PAIN, NAUSEA OR SOB. PT IS ON 1L OF O2 VIA NC, WHICH IS HER NORMAL HOME DOSE AT NIGHT. NO OTHER ACUTE CHANGES IN PT CONDITION NOTED. WILL CONTINUE TO MONITOR AND TREAT PER EMAR UNTIL HAND OFF TO DAY SHIFT RN.
--- NOTE | 2019-01-18 11:46 | NUR ---
BLADDER SCAN AND STRAIGHT CATH CALLED DR. HARRISON TO CLARIFY PARAMETERS, ORDERS RECEIVED AND UPDATED.
--- NOTE | 2019-01-18 17:08 | NUR ---
Shift Summary A/Ox3, forgetful at times. Pleasant and cooperative with care. Pt worked with PT today, denies pain, N/V, or SOB. Denies dizziness. Nichols removed per MD orders, pt had called caregiver (Katt) and [id number] (Cecilia) to notify them of nichols removal. Katt is concerned and had asked to keep nichols in when discharging patient d/t numerous times of having to go to the doctor to "drain her bladder". Katt explained to me that pt would go for up to 3 days not urinating. This RN explained the purpose of removal (reduce risk of UTI) and other interventions in place to assist with bladder monitoring while in the hospital. Will notify MD about Katt's concerns. No other concerns at this time.
--- NOTE | 2019-01-18 22:57 | NUR ---
HYPERTENSIVE PT HYPERTENSIVE NOTIFIED DR. ACEVEDO. NO NEW ORDERS AT THIS TIME, JUST CONTINUE TO WATCH FOR NOW.
--- NOTE | 2019-01-19 04:32 | NUR ---
SHIFT SUMMARY PT HAS RESTED MOST OF THE NIGHT. PT BLOOD PRESSURE HAS BEEN UP AND DOWN. DOCTOR NOTIFIED EARLIER IN THE SHIFT, NO NEW ORDERS WERE GIVEN AND SHE STATES JUST TO MONITOR FOR NOW. PT HAD HER GILLETTE REMOVED YESTERDAY AFTERNOON AND HAS SINCE THAT TIME VOIDED A TOTAL 500 MLS ON HER OWN THIS SHIFT. PT BLADDER SCAN PERFORMED AFTER SHE VOIDED 200 MLS, AND PT WAS STILL RETAINING GREATER THAN 500 MLS IN HER BLADDER. PT STATED THAT HER BLADDER STILL FELT FULL AFTER VOIDING. PT STRAIGHT CATH PER ORDERS AND 600 MLS OF URINE OBTAINED. PT HAD ONE LARGE BM THIS SHIFT. THERE HAVE BEEN NO OTHER CHANGES TO REPORT THIS SHIFT. PT A/OX4, AND CALLS APPROPRIATELY. WILL CONTINUE TO MONITOR AND REPORT TO ONCOMING RN.
[2019-01-19 05:14] LABS: BASOPHILS ABSOLUTE AUTO 0.01 K/mm3 (0.00-0.23); BASOPHILS PERCENT AUTO 0 % (0-2); EOSINOPHILS ABSOLUTE AUTO 0.04 K/mm3 (0.00-0.68); EOSINOPHILS PERCENT AUTO 1 % (0-6); Hematocrit 33.5 % (33.0-51.0); Hemoglobin 10.7 g/dL (11.5-16.0); IMMATURE GRAN ABSOLUTE AUTO 0.03 K/mm3 (0.00-0.10); IMMATURE GRAN PERCENT AUTO 0 % (0-1); LYMPHOCYTES ABSOLUTE AUTO 1.65 K/mm3 (0.84-5.20); LYMPHOCYTES PERCENT AUTO 19 % (21-46); MONOCYTES ABSOLUTE AUTO 0.77 K/mm3 (0.16-1.47); MONOCYTES PERCENT AUTO 9 % (4-13); Mean Corpuscular HGB 28.5 pg (26.0-34.0); Mean Corpuscular HGB Conc 31.9 g/dL (31.5-36.5); Mean Platelet Volume 10.3 fL (9.1-12.4); NEUTROPHILS ABSOLUTE AUTO 6.25 K/mm3 (1.96-9.15); NEUTROPHILS PERCENT AUTO 71 % (41-73); Platelet Count 158 K/mm3 (150-400); RDW Coefficient Variation 14.6 % (11.7-14.2); RDW Standard Deviation 47.2 fL (35.1-46.3); Red Blood Cell Count 3.76 M/mm3 (3.80-5.20); White Blood Cell Count 8.75 K/mm3 (4.00-11.30)
[2019-01-19 05:18] LABS: Mean Corpuscular Volume 89 fL (80-100)
[2019-01-19 05:41] LABS: Albumin, Blood 3.3 g/dL (3.4-5.0); Anion Gap 8 mmol/L (6-16); Blood Urea Nitrogen 36 mg/dL (8-24); Bun/Creatinine Ratio 21.2 (12.0-20.0); CO2, Blood 31 mmol/L (21-32); Chloride, Blood 99 mmol/L (98-108); Glomerular Filtration Rate 30 (60-); Glucose, Blood 102 mg/dL (70-99); Phosphorus, Blood 4.3 mg/dL (2.5-4.9); Potassium, Blood 4.1 mmol/L (3.5-5.5); Sodium, Blood 138 mmol/L (136-145); Troponin I <0.015 ng/mL (0.000-0.040)
--- NOTE | 2019-01-19 06:20 | NUR ---
HYPERTENSIVE PT HYPERTENSIVE THIS AM. HER BP HAS BEEN UP AND DOWN T/O THE SHIFT. HOSPITLAIST NOTIFIED FOR THE SECOND TIME THIS SHIFT. DR. WHITNEY ORDERED PO HYDRALYZINE TO BE STARTED BID, AND PRN IV HYDRALYZINE.
--- NOTE | 2019-01-19 08:23 | NUR ---
Urinary retention Informed Dr. Liu of urinary retention during the night despite voiding x2 per report from shift manager RN. Also discussed family's concern RE nichols removal and urinary retention.
--- NOTE | 2019-01-19 14:00 | NUR ---
Voiding Attempt Placed patient on commode x 3 so far and only had one episode of voiding 450cc the first time. Bladdder scan shows 639cc. Will straight cath and attempt to educate patient on self cath procedure.
--- NOTE | 2019-01-19 14:32 | NUR ---
Self cath education Pt lacks physical dexterity to self cath, is visually impaired, and can not perform this task safely. Pt is also forgetful, unable to educate.
--- NOTE | 2019-01-19 17:05 | NUR ---
Shift Summary A/Ox2, pleasant with care, pt is often forgetful. According to Caregiver (Katt), pt called Katt 3x yesterday explaining the same thing. Pt stated she don't remember ever calling Katt, but pt has been on the phone t/o yesterday and today. Attempted to wean off O2, at room air, pt saturated between 89-94 with guidance on breathing. Will continue to monitor saturations and adjust O2 as needed. Bladder scan showed >600 after attempting to void, straight cath 700mL out. Pt continues to retain, unable to educate on safe self-cath per MD orders (see previous note). Attempted to educate Katt on straight cath; however, she was not comfortable with learning this procedure and will not have time to continually straight cath. Oetgankf-yv-dki has some questions and would like a call from doctor with updates.
[2019-01-20 05:46] LABS: BASOPHILS ABSOLUTE AUTO 0.02 K/mm3 (0.00-0.23); BASOPHILS PERCENT AUTO 0 % (0-2); EOSINOPHILS ABSOLUTE AUTO 0.17 K/mm3 (0.00-0.68); EOSINOPHILS PERCENT AUTO 2 % (0-6); Hematocrit 32.6 % (33.0-51.0); Hemoglobin 10.3 g/dL (11.5-16.0); IMMATURE GRAN ABSOLUTE AUTO 0.03 K/mm3 (0.00-0.10); IMMATURE GRAN PERCENT AUTO 0 % (0-1); LYMPHOCYTES ABSOLUTE AUTO 2.37 K/mm3 (0.84-5.20); LYMPHOCYTES PERCENT AUTO 32 % (21-46); MONOCYTES ABSOLUTE AUTO 0.68 K/mm3 (0.16-1.47); MONOCYTES PERCENT AUTO 9 % (4-13); Mean Corpuscular HGB 28.9 pg (26.0-34.0); Mean Corpuscular HGB Conc 31.6 g/dL (31.5-36.5); Mean Corpuscular Volume 91 fL (80-100); Mean Platelet Volume 10.3 fL (9.1-12.4); NEUTROPHILS ABSOLUTE AUTO 4.19 K/mm3 (1.96-9.15); NEUTROPHILS PERCENT AUTO 56 % (41-73); Platelet Count 156 K/mm3 (150-400); RDW Coefficient Variation 14.9 % (11.7-14.2); RDW Standard Deviation 50.1 fL (35.1-46.3); Red Blood Cell Count 3.57 M/mm3 (3.80-5.20); White Blood Cell Count 7.46 K/mm3 (4.00-11.30)
--- NOTE | 2019-01-20 05:58 | NUR ---
SHIFT SUMMARY: NO ACUTE CHANGES THIS SHIFT. PT FORGETFUL AT TIMES WITH BED ALARM ON FOR SAFETY. UNABLE TO VOID THROUGHOUT SHIFT. BLADDER SCAN SHOWED >549. STRAIGHT CATH INSERTED WITH 1000 ML FOR OUTPUT. PT TRANSFERING WITH ONE ASSIST AND FWW. NSR ON TELE. RESTING AT THIS TIME.
[2019-01-20 06:11] LABS: Albumin, Blood 3.1 g/dL (3.4-5.0); Anion Gap 7 mmol/L (6-16); Blood Urea Nitrogen 36 mg/dL (8-24); Bun/Creatinine Ratio 19.1 (12.0-20.0); CO2, Blood 29 mmol/L (21-32); Calcium, Blood 10.7 mg/dL (8.5-10.1); Chloride, Blood 100 mmol/L (98-108); Creatinine, Blood 1.88 mg/dL (0.40-1.00); Glomerular Filtration Rate 27 (60-); Glucose, Blood 98 mg/dL (70-99); Magnesium, Blood 1.8 mg/dL (1.6-2.4); Phosphorus, Blood 4.5 mg/dL (2.5-4.9); Sodium, Blood 136 mmol/L (136-145)
--- NOTE | 2019-01-20 14:53 | NUR ---
SHIFT SUMMARY PT AWAKE DURING SHIFT REPORT. NO C/O. ASSISTED UP FOR BREAKFAST. PT ABLE TO FEED HERSELF, BUT APPEARS TO HAVE DIFFICULTY SEEING THE FOOD ON HER PLATE SHE SCOOPED THE AIR A NUMBER OF TIMES. PT IS WEARING HER GLASSES. SEEMS TO DO BETTER WHEN PUTTING SPOON IN FOOD FOR HER THE FIRST TIME. PT UP TO BSC WITH 1P ASSIST USING FWW. PT LATER ABLE TO AMBULATE TO BTHRM USING FWW. PT WORKED WITH PT/OT TODAY, DOING WELL. PER SHIFT REPORT, PT HAD SOME URINE RETENTION. BLADDER SCAN DONE SHOWING 723cc LATER IN AM. PT HAS BEEN UP TO VOID SEVERAL TIMES TODAY, BUT SOME VOIDS WERE UNMEASURED. PT SITTING IN CHAIR AT BS SINCE BEFORE LUNCH. DR BRAVO IN TO SEE PT THIS AM. PT DOES HAVE SOME CONFUSION, POSSIBLY R/T DEMENTIA. THINKING SHE WAS IN [place] TODAY AND THAT HER KIDS WERE IN ANOTHER . FAMILY CONTACTED BY DR BRAVO AND TALKED WITH THEM FOR A VERY LONG TIME. FAMILY UPDATED R/T D/C WELL PT'S NEED FOR ADDITIONAL CARE AND POSSIBLE ASSISTED LIVING. D/C ORDERS PLACED. DENTAL SPECIALIST IN TO SEE PT AND MAKE ARRANGEMENTS FOR TX TO . PT DRESSED AND NOW WAITING TO BE D/C'D TO . TO BE PICKED UP AT 1600. DENTAL SPECIALIST REPORTED THAT SHE HAD ATTEMPTED TO CALL FAMILY TODAY, BUT FAMILY UNAVAILABLE. FAMILY HAS CALLED MULTIPLE TIMES WANTING TO TALK WITH CM, BUT WHEN CM'S HAVE ATTEMPTED TO CONTACT THEM THEY DO NOT ANSWER. PT'S BINGO WORKER TO TO VISIT WITH PT. NO S/SX'S OF DISTRESS NOTED OR REPORTED. REPORT CALLED TO KAROLINA FOX AT AT 1450.
[2019-01-20] MEDS ORDERED: ENOX30I SC (15:03)
--- NOTE | 2019-01-20 15:50 | NUR ---
Spiritual care visit conducted. Patient is sitting on a chair with her gericare aide teacher present in the room. Patient is dressed in street clothes and so I ask patient if she is coming or going or staying. Patient tells me that she has no idea. Devin's gericare aide teacher explains that she is going home today. Patient shares about her [employer] background and was unsure on how to answer other questions and the gericare aide teacher was on the phone. I provided prayer and patient thatnked me for the visit.
--- NOTE | 2019-01-20 20:03 | NUR ---
REVIEWED PATIENT'S CONTACT INFORMATION TO CALL CAREGIVER REGARDING PT'S HOME MED PARICALCITOL THAT WAS LEFT BEHIND. CAREGIVER ANGELINA LATASHA STATED SHE WOULD BE IN TOMORROW TO PICK IT UP, LET HER KNOW IT WILL BE IN PHARMACY WHEN SHE GETS HERE.
== END 2019-01-20 17:52 ==
LOC: ER 18:03 → MEDS 18:04 → ENPENDDIS 01-20 11:13 → MEDS 01-20 17:52
PROVIDERS: Emergency Medicine; Internal Medicine Gastroenterology; ADMIT Internal Medicine
DX: R62.7 Adult failure to thrive (principal); R79.1 Abnormal coagulation profile; R53.1 Weakness; I35.0 Nonrheumatic aortic (valve) stenosis; E11.22 Type 2 diabetes mellitus with diabetic chronic kidney disease; E11.40 Type 2 diabetes mellitus with diabetic neuropathy, unspecified; E11.319 Type 2 diabetes mellitus with unspecified diabetic retinopathy without macular edema; M19.90 Unspecified osteoarthritis, unspecified site; I12.9 Hypertensive chronic kidney disease with stage 1 through stage 4 chronic kidney disease, or unspecified chronic kidney disease; N18.4 Chronic kidney disease, stage 4 (severe); D63.1 Anemia in chronic kidney disease; F32.9 Major depressive disorder, single episode, unspecified; J44.9 Chronic obstructive pulmonary disease, unspecified; G47.33 Obstructive sleep apnea (adult) (pediatric); K21.9 Gastro-esophageal reflux disease without esophagitis; E78.5 Hyperlipidemia, unspecified; Z79.02 Long term (current) use of antithrombotics/antiplatelets; Z99.81 Dependence on supplemental oxygen; Z88.6 Allergy status to analgesic agent; Z91.81 History of falling; Z88.2 Allergy status to sulfonamides; Z79.899 Other long term (current) drug therapy; Z87.891 Personal history of nicotine dependence; Z68.23 Body mass index [BMI] 23.0-23.9, adult
CPT/HCPCS: 36415; 51702; 70551; 71045; 71046; 78582; 80053; 80069; 81001; 83735; 83880; 84484; 85025; 85027; 85379; 93970; 94640; 94644; 94760; 96361; 96372; 96374; 97112; 97116; 97162; 97166; 97530; 97535; 99285-25; A9540; A9558; G0378; J0360; J1650; J2930; J7030

== ENCOUNTER → 2019-02-13 | Outpatient (CLI) | payer OTHER ==
[~2019-02-13] MED LIST changes: +ENOX30I SC
== END | disposition home or self-care (01) ==
LOC: LAB 18:50 → LAB SHORT 18:50
DX: N39.0 Urinary tract infection, site not specified (principal)
CPT/HCPCS: 87086

== ENCOUNTER 2019-03-06 10:21 | Emergency (ER) | payer OTHER ==
[~2019-03-06] VITALS: Ht 167.6 cm; Wt 84.8 kg
[2019-03-06] MEDS ORDERED: CLOP75 PO (10:43)
[2019-03-06 10:50] LABS: BASOPHILS ABSOLUTE AUTO 0.01 K/mm3 (0.00-0.23); BASOPHILS PERCENT AUTO 0 % (0-2); EOSINOPHILS ABSOLUTE AUTO 0.07 K/mm3 (0.00-0.68); EOSINOPHILS PERCENT AUTO 1 % (0-6); Hematocrit 33.4 % (33.0-51.0); Hemoglobin 10.9 g/dL (11.5-16.0); IMMATURE GRAN ABSOLUTE AUTO 0.05 K/mm3 (0.00-0.10); IMMATURE GRAN PERCENT AUTO 0 % (0-1); LYMPHOCYTES ABSOLUTE AUTO 1.05 K/mm3 (0.84-5.20); LYMPHOCYTES PERCENT AUTO 9 % (21-46); MONOCYTES ABSOLUTE AUTO 0.91 K/mm3 (0.16-1.47); MONOCYTES PERCENT AUTO 8 % (4-13); Mean Corpuscular HGB 30.1 pg (26.0-34.0); Mean Corpuscular HGB Conc 32.6 g/dL (31.5-36.5); Mean Corpuscular Volume 92 fL (80-100); Mean Platelet Volume 9.7 fL (9.1-12.4); NEUTROPHILS PERCENT AUTO 83 % (41-73); Platelet Count 196 K/mm3 (150-400); RDW Standard Deviation 47.6 fL (35.1-46.3); Red Blood Cell Count 3.62 M/mm3 (3.80-5.20); White Blood Cell Count 12.19 K/mm3 (4.00-11.30)
[2019-03-06 10:58] LABS: Albumin, Blood 2.8 g/dL (3.4-5.0); Albumin/Globulin Ratio 0.9 (0.8-1.8); Bilirubin, Total 0.3 mg/dL (0.1-1.0); Bun/Creatinine Ratio 14.3 (12.0-20.0); Calcium, Blood 8.1 mg/dL (8.5-10.1); Creatinine, Blood 1.54 mg/dL (0.40-1.00); Globulin, Blood 3.2 g/dL (2.2-4.0); Potassium, Blood 3.7 mmol/L (3.5-5.5)
[2019-03-06 12:32] LABS: Source, Urine Clean Catch
[2019-03-06 12:52] LABS: Bilirubin, Urine Neg (Neg); Blood, Urine Neg (Neg); Glucose Qualitative, Urine Neg (Neg); Ketones, Urine Neg (Neg); Leukocyte Esterase, Urine Neg (Neg); Nitrite, Urine Neg (Neg); Protein, Urine 1+ (Neg); Specific Gravity, Urine 1.015 (1.003-1.022); Urobilinogen, Urine NORM (Normal)
[2019-03-06 13:00] LABS: Appearance, Urine Clear (Clear); Color, Urine Yellow (P-Yellow)
[2019-03-06] MEDS ORDERED: AZIT250 PO (13:37)
== END 2019-03-06 15:36 | disposition home or self-care (01) ==
LOC: ER 10:21
PROVIDERS: Emergency Medicine
DX: J18.9 Pneumonia, unspecified organism (principal); I10 Essential (primary) hypertension; Z88.6 Allergy status to analgesic agent; Z88.2 Allergy status to sulfonamides; Z79.899 Other long term (current) drug therapy; Z79.01 Long term (current) use of anticoagulants; Z87.891 Personal history of nicotine dependence
CPT/HCPCS: 36415; 71046; 80053; 85025; 93005; 93010; 96361; 96365; 99284-25; J0696; J7030; P9612

== ENCOUNTER → 2019-04-22 | Outpatient (CLI) | payer OTHER ==
[~2019-04-22] MED LIST changes: +ONDA4ODT MM
[2019-04-22 20:19] LABS: Appearance, Urine Cloudy (Clear); Bilirubin, Urine Neg (Neg); Blood, Urine 5+ (Neg); Color, Urine Yellow (P-Yellow); Glucose Qualitative, Urine Neg (Neg); Ketones, Urine Neg (Neg); Leukocyte Esterase, Urine 3+ (Neg); Nitrite, Urine Neg (Neg); Protein, Urine 3+ (Neg); Urobilinogen, Urine NORM (Normal)
[2019-04-22 20:32] LABS: Red Blood Cells, Urine 50-100 /hpf (0-2); White Blood Cells, Urine TNTC /hpf (0-5)
[2019-04-22 20:33] LABS: Bacteria Many /hpf; Squamous Epithelial Cells Rare /hpf (Few)
== END ==
LOC: LAB HH 18:42
DX: Z46.6 Encounter for fitting and adjustment of urinary device (principal); R33.9 Retention of urine, unspecified
CPT/HCPCS: 81001; 87086

== ENCOUNTER 2019-04-30 18:09 | Inpatient (IN) | payer OTHER ==
[~2019-04-30] VITALS: Ht 167.6 cm; Wt 70.4 kg
[~2019-04-30 18:09] MED LIST changes: -ALBU90OI INH; -Acetaminophen325 M1 PO; -BUDE6HFA INH; -Colace100 MG PO; -LOSA25 PO; -OCUVITE ADULT1 EAC1 PO; -OMEP20ER PO; -OYSTER SHELL 51 EACH PO
[2019-04-30 18:43] LABS: Source, Urine Catheter
[2019-04-30 18:53] LABS: Bilirubin, Urine Neg (Neg); Blood, Urine 2+ (Neg); Glucose Qualitative, Urine Neg (Neg); Ketones, Urine Neg (Neg); Leukocyte Esterase, Urine 3+ (Neg); Nitrite, Urine Pos (Neg); Protein, Urine 2+ (Neg); Urobilinogen, Urine NORM (Normal)
[2019-04-30 19:00] LABS: Appearance, Urine Hazy (Clear); Color, Urine Yellow (P-Yellow)
[2019-04-30 19:04] LABS: White Blood Cells, Urine 50-100 /hpf (0-5)
[2019-04-30 19:05] LABS: Bacteria Mod /hpf; Squamous Epithelial Cells Not Seen /hpf (Few)
[2019-04-30 20:05] LABS: BASOPHILS ABSOLUTE AUTO 0.04 K/mm3 (0.00-0.23); BASOPHILS PERCENT AUTO 0 % (0-2); EOSINOPHILS ABSOLUTE AUTO 0.04 K/mm3 (0.00-0.68); EOSINOPHILS PERCENT AUTO 0 % (0-6); Hematocrit 34.2 % (33.0-51.0); Hemoglobin 10.8 g/dL (11.5-16.0); IMMATURE GRAN ABSOLUTE AUTO 0.17 K/mm3 (0.00-0.10); IMMATURE GRAN PERCENT AUTO 1 % (0-1); LYMPHOCYTES ABSOLUTE AUTO 1.74 K/mm3 (0.84-5.20); LYMPHOCYTES PERCENT AUTO 8 % (21-46); MONOCYTES ABSOLUTE AUTO 1.54 K/mm3 (0.16-1.47); MONOCYTES PERCENT AUTO 7 % (4-13); Mean Corpuscular HGB 28.8 pg (26.0-34.0); Mean Corpuscular HGB Conc 31.6 g/dL (31.5-36.5); Mean Corpuscular Volume 91 fL (80-100); Mean Platelet Volume 10.1 fL (9.1-12.4); NEUTROPHILS ABSOLUTE AUTO 18.81 K/mm3 (1.96-9.15); NEUTROPHILS PERCENT AUTO 84 % (41-73); Platelet Count 215 K/mm3 (150-400); RDW Coefficient Variation 14.4 % (11.7-14.2); RDW Standard Deviation 48.5 fL (35.1-46.3); Red Blood Cell Count 3.75 M/mm3 (3.80-5.20); White Blood Cell Count 22.34 K/mm3 (4.00-11.30)
[2019-04-30 20:14] LABS: Albumin, Blood 2.9 g/dL (3.4-5.0); Albumin/Globulin Ratio 0.8 (0.8-1.8); Bilirubin, Total 0.3 mg/dL (0.1-1.0); Bun/Creatinine Ratio 29.2 (12.0-20.0); Calcium, Blood 9.4 mg/dL (8.5-10.1); Creatinine, Blood 1.78 mg/dL (0.40-1.00); Globulin, Blood 3.8 g/dL (2.2-4.0); Potassium, Blood 4.2 mmol/L (3.5-5.5); Total Protein, Blood 6.7 g/dL (6.4-8.2)
[2019-04-30] MEDS ORDERED: BUDE6HFA INH (21:10)
[2019-04-30] MEDS ORDERED: TRAM50 PO (21:10)
[2019-04-30] MEDS ORDERED: TIOT18 INH (21:11)
[2019-04-30] MEDS ORDERED: PARI1 PO (21:12)
[2019-04-30] MEDS ORDERED: Crestor20 MG PO (21:13)
[2019-04-30] MEDS ORDERED: AMLO10 PO (21:14)
[2019-04-30] MEDS ORDERED: GABA100 PO (21:15)
[2019-04-30] MEDS ORDERED: CLOP75 PO (21:15)
[2019-04-30] MEDS ORDERED: ALBU90OI INH (21:15)
[2019-04-30] MEDS ORDERED: OMEP20ER PO (21:16)
[2019-04-30] MEDS ORDERED: COLCHICINE0.6 MG PO (21:17)
[2019-04-30] MEDS ORDERED: OCUVITE ADULT1 EAC1 PO (21:17)
[2019-04-30] MEDS ORDERED: LOSA25 PO (21:21)
[2019-04-30] MEDS ORDERED: Acetaminophen325 M1 PO (21:52)
[2019-04-30] MEDS ORDERED: ACYC800 PO (21:52)
[2019-04-30] MEDS ORDERED: CALCIUM 600 +1 EA10 PO (21:54)
[2019-04-30] MEDS ORDERED: FISH OIL 1,4001 EACH PO (21:55)
[2019-04-30] MEDS ORDERED: SENN187 PO (21:56)
[2019-04-30] MEDS ORDERED: Colace100 MG PO (21:56)
[2019-04-30] MEDS ORDERED: GAVILAX17 GM PO (21:56)
[2019-04-30] MEDS ORDERED: Ferrous Sulfat325 M2 PO (21:57)
[2019-04-30] MEDS ORDERED: DICLOFENAC SOD100 G1 TOP (21:58)
[2019-04-30] MEDS ORDERED: THERA-D2000 UNIT PO (21:58)
[2019-04-30] MEDS ORDERED: FOCUS FACTOR PO (21:59)
--- NOTE | 2019-05-01 04:13 | NUR ---
SHIFT SUMMARY PT WAS NEW ER ADMIT THIS SHIFT (2381); HAS BEEN A&O SINCE ASSUMING CARE, USES CALL LIGHT APPROP, NO C/O ANY KIND. PT STATED SHE HAS NOT AMBULATED FOR 1 WEEK D/T CURRENT ILLNESS, PT HAS CHRONIC GILLETTE SHE STATES WAS PLACED 1 MO AGO, CHANGED OUT WHEN ASSUMED CARE, PT SLEEPING AT THIS TIME, CALL LIGHT IN REACH, WILL CONT TO MONITOR UNTIL REPORT GIVEN TO DAY RN.
[2019-05-01 05:03] LABS: BASOPHILS ABSOLUTE AUTO 0.03 K/mm3 (0.00-0.23); BASOPHILS PERCENT AUTO 0 % (0-2); EOSINOPHILS ABSOLUTE AUTO 0.13 K/mm3 (0.00-0.68); EOSINOPHILS PERCENT AUTO 1 % (0-6); Hematocrit 29.7 % (33.0-51.0); Hemoglobin 9.5 g/dL (11.5-16.0); IMMATURE GRAN ABSOLUTE AUTO 0.06 K/mm3 (0.00-0.10); IMMATURE GRAN PERCENT AUTO 0 % (0-1); LYMPHOCYTES ABSOLUTE AUTO 2.25 K/mm3 (0.84-5.20); LYMPHOCYTES PERCENT AUTO 15 % (21-46); MONOCYTES ABSOLUTE AUTO 0.98 K/mm3 (0.16-1.47); MONOCYTES PERCENT AUTO 7 % (4-13); Mean Corpuscular HGB 28.9 pg (26.0-34.0); Mean Corpuscular Volume 90 fL (80-100); NEUTROPHILS ABSOLUTE AUTO 11.27 K/mm3 (1.96-9.15); NEUTROPHILS PERCENT AUTO 77 % (41-73); Platelet Count 174 K/mm3 (150-400); RDW Coefficient Variation 14.4 % (11.7-14.2); RDW Standard Deviation 47.8 fL (35.1-46.3); Red Blood Cell Count 3.29 M/mm3 (3.80-5.20); White Blood Cell Count 14.72 K/mm3 (4.00-11.30)
[2019-05-01 05:51] LABS: Albumin, Blood 2.4 g/dL (3.4-5.0); Albumin/Globulin Ratio 0.8 (0.8-1.8); Bilirubin, Total 0.4 mg/dL (0.1-1.0); Bun/Creatinine Ratio 27.5 (12.0-20.0); Creatinine, Blood 1.67 mg/dL (0.40-1.00); Globulin, Blood 3.2 g/dL (2.2-4.0); Total Protein, Blood 5.6 g/dL (6.4-8.2)
[2019-05-01] MEDS ORDERED: ONDA4ODT (10:54)
--- NOTE | 2019-05-01 11:49 | NUR ---
Patient is lying in bed and resting but easily awakens to the sound of her name. Patient immediately tells about her fears of coming to the hospital because of concerns that she may get covid-19. Patient tells me about her symptoms, about her family and about her little dog Maribel. I listen empathiaclly, normalize patient's experience and provide pastoral apprise counselor, companionship and prayer. Patient responds well and shows signs of reduced stress. I will continue to remain available to patient and family.
--- NOTE | 2019-05-01 15:23 | NUR ---
THE PATIENT HAS HAD AN UNEVENTFUL SHIFT. VITALS HAVE BEEN STABLE. PATIENT CONTINUES ON IV ABX WITHOUT S/SX OF ADVERSE REACTIONS NOTED OR REPORTED. PATIENT IS PLEASANT AND COOPERATIVE WITH STAFF AND CALLS APPROPRIATELY FOR STAFF ASSIST. NO ACUTE CHANGES NOTED AT THIS TIME.
--- NOTE | 2019-05-01 16:29 | NUR ---
CALLED AND TALKED TO DR BABIN TO REQUEST A PT/OT EVAL. ORDERS GIVEN.
--- NOTE | 2019-05-02 04:40 | NUR ---
SHIFT SUMMARY PT HAS HAD NO ACUTE CHANGES THIS SHIFT, MEDICATED 1X FOR BACK PAIN, NO OTHER C/O ANY KIND. PT A&O, CALLS APPROPIATELY FOR ASSISTANCE, SLEPT T/O SHIFT & AT THIS TIME, CALL LIGHT IN REACH, WILL CONT TO MONITOR UNTIL REPORT GIVEN TO DAY RN.
[2019-05-02 05:22] LABS: BASOPHILS ABSOLUTE AUTO 0.01 K/mm3 (0.00-0.23); BASOPHILS PERCENT AUTO 0 % (0-2); EOSINOPHILS ABSOLUTE AUTO 0.22 K/mm3 (0.00-0.68); EOSINOPHILS PERCENT AUTO 2 % (0-6); Hematocrit 29.2 % (33.0-51.0); Hemoglobin 9.1 g/dL (11.5-16.0); IMMATURE GRAN ABSOLUTE AUTO 0.04 K/mm3 (0.00-0.10); IMMATURE GRAN PERCENT AUTO 0 % (0-1); LYMPHOCYTES ABSOLUTE AUTO 1.94 K/mm3 (0.84-5.20); LYMPHOCYTES PERCENT AUTO 18 % (21-46); MONOCYTES ABSOLUTE AUTO 0.83 K/mm3 (0.16-1.47); MONOCYTES PERCENT AUTO 8 % (4-13); Mean Corpuscular HGB 28.8 pg (26.0-34.0); Mean Corpuscular HGB Conc 31.2 g/dL (31.5-36.5); Mean Corpuscular Volume 92 fL (80-100); Mean Platelet Volume 9.8 fL (9.1-12.4); NEUTROPHILS ABSOLUTE AUTO 7.72 K/mm3 (1.96-9.15); NEUTROPHILS PERCENT AUTO 72 % (41-73); Platelet Count 182 K/mm3 (150-400); RDW Coefficient Variation 14.3 % (11.7-14.2); RDW Standard Deviation 48.5 fL (35.1-46.3); Red Blood Cell Count 3.16 M/mm3 (3.80-5.20); White Blood Cell Count 10.76 K/mm3 (4.00-11.30)
[2019-05-02 05:43] LABS: Albumin, Blood 2.4 g/dL (3.4-5.0); Albumin/Globulin Ratio 0.7 (0.8-1.8); Bilirubin, Total 0.3 mg/dL (0.1-1.0); Bun/Creatinine Ratio 23.9 (12.0-20.0); Creatinine, Blood 1.8 mg/dL (0.40-1.00); Globulin, Blood 3.3 g/dL (2.2-4.0); Potassium, Blood 4.3 mmol/L (3.5-5.5); Total Protein, Blood 5.7 g/dL (6.4-8.2)
--- NOTE | 2019-05-02 11:33 | NUR ---
DR CALVIN BEEN TO SEE PT RECENTLY.
--- NOTE | 2019-05-02 14:30 | NUR ---
FAMILY CALLED REQ UPDATE. DR NOTIFIED, REPORTS WILL CALL.
--- NOTE | 2019-05-02 14:35 | NUR ---
REPORT BEEN GIVEN TO Garland WHO IS TAKING OVER CARE AT THIS TIME.
--- NOTE | 2019-05-02 15:32 | NUR ---
ASSUMED CARE OF PT AT ABOUT 1415
--- NOTE | 2019-05-02 19:47 | NUR ---
SUMMARY: NO CHANGE SINCE RECIEVED REPORT. PT IS A/O, VSS. REPORT PASSED TO NOC RN
--- NOTE | 2019-05-03 03:34 | NUR ---
SHIFT SUMMARY PATIENT HAD NO ACUTE CHANGES OBSERVED THIS SHIFT. AXOX 3 AND SBA TO BSC. GILLETTE PATENT AND DRAINING. ON 2L O2 NC. PIV REMAINS INTACT. VSS/AFEBRILE. DENIES PAIN, SOB, AND N/V. SLEPT T/O SHIFT. COOPERATIVE WITH CARE. CALL LIGHT IN REACH. BED IN LOWEST POSITION. WILL CONTINUE TO MONITOR UNTIL DAY SHIFT NURSE ASSUMES CARE.
--- NOTE | 2019-05-03 08:24 | NUR ---
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
--- NOTE | 2019-05-03 13:56 | NUR ---
pt walked around room with pt, reports she is tired but that it felt good
--- NOTE | 2019-05-03 19:23 | NUR ---
alert at baseline, call light in reach, orintated to self, location and family, 2L via nc, bed in low position, report given to noc staff
--- NOTE | 2019-05-04 04:57 | NUR ---
Rn summary: Patient is alert and oriented. Pt has a chronic nichols which is draining yellow urine. Patient has crackles rt bases, deep breathing taught and demonstrated, encouraged her to do frequently. Patient has a loud heart murmur. Pt medicated x1 with ultram for rt shoulder and low back pain. Pt was able to rest well afterward. Call light is in reach. Will continue to monitor.
[2019-05-04 05:17] LABS: BASOPHILS ABSOLUTE AUTO 0.01 K/mm3 (0.00-0.23); BASOPHILS PERCENT AUTO 0 % (0-2); EOSINOPHILS ABSOLUTE AUTO 0.21 K/mm3 (0.00-0.68); EOSINOPHILS PERCENT AUTO 3 % (0-6); Hematocrit 30.1 % (33.0-51.0); Hemoglobin 9.5 g/dL (11.5-16.0); IMMATURE GRAN ABSOLUTE AUTO 0.05 K/mm3 (0.00-0.10); IMMATURE GRAN PERCENT AUTO 1 % (0-1); LYMPHOCYTES ABSOLUTE AUTO 1.82 K/mm3 (0.84-5.20); LYMPHOCYTES PERCENT AUTO 24 % (21-46); MONOCYTES ABSOLUTE AUTO 0.57 K/mm3 (0.16-1.47); MONOCYTES PERCENT AUTO 7 % (4-13); Mean Corpuscular HGB 28.4 pg (26.0-34.0); Mean Corpuscular HGB Conc 31.6 g/dL (31.5-36.5); Mean Corpuscular Volume 90 fL (80-100); Mean Platelet Volume 9.4 fL (9.1-12.4); NEUTROPHILS ABSOLUTE AUTO 5.02 K/mm3 (1.96-9.15); NEUTROPHILS PERCENT AUTO 65 % (41-73); Platelet Count 204 K/mm3 (150-400); RDW Standard Deviation 45.7 fL (35.1-46.3); Red Blood Cell Count 3.34 M/mm3 (3.80-5.20); White Blood Cell Count 7.68 K/mm3 (4.00-11.30)
[2019-05-04 05:40] LABS: Albumin, Blood 2.5 g/dL (3.4-5.0); Anion Gap 5 mmol/L (6-16); Blood Urea Nitrogen 29 mg/dL (8-24); CO2, Blood 27 mmol/L (21-32); Calcium, Blood 9.6 mg/dL (8.5-10.1); Chloride, Blood 105 mmol/L (98-108); Creatinine, Blood 1.45 mg/dL (0.40-1.00); Glomerular Filtration Rate 37 (60-); Glucose, Blood 102 mg/dL (70-99); Phosphorus, Blood 4.2 mg/dL (2.5-4.9); Potassium, Blood 4.4 mmol/L (3.5-5.5); Sodium, Blood 137 mmol/L (136-145)
--- NOTE | 2019-05-04 15:42 | NUR ---
SHIFT SUMMARY PT IS A/O X 4 AND HAS NO C/O PAIN OR DISTRESS. NAIN IS PATENT. SHE CONTINUES ON 2 LPM VIA N.C. IV FLUIDS/ABO INFUSED ORDERED WITH NO ISSUE. PT DAUGHTER CALLED FOR AN UPDATE THIS MORNING. PER REPORT PLAN FOR PT IS TO DC HOME WITH HOME HEALTH. PT HAS BEEN RESTING IN BED. SHE IS ABLE TO MAKE HER NEEDS KNOWN AND CALLS FOR HELP WHEN NEEDED. CALL LIGHT IS IN REACH.
--- NOTE | 2019-05-05 06:20 | NUR ---
SHIFT SUMMARY- PT. A&O, I ASSIST TO BSC. SLEPT WELL DURING THE NIGHT, NO APPARENT DISTRESS NOTED. PT. DENIED ANY PAIN OR DISCOMFORT T/O THE SHIFT. CHRONIC GILLETTE CATHETER PATENT AND DRAINING WELL. PT. ON 2L OF O2, THIS IS PT'S BASELINE. VSS. PLAN FOR HOME O2 EVAL FOR TODAY WITH POSS D/C TO HOME. CALL LIGHT WITHIN REACH AND SIDE RAILS UP X2. WILL CONT TO MONITOR.
--- NOTE | 2019-05-05 16:12 | NUR ---
SHIFT SUMMARY PT IS A/O X 4 WITH NO C/O PAIN. PT HAS BEEN UP TO CHAIR FOR MEALS AND WORKING WITH THERAPY. PT CONTINUES ON 2 LPM VIA N.C. WITH NO RESP DISTRESS. PER THE FABRIC WORKER LEADER DC WILL BE PUSHED UNTIL TOMORROW. FABRIC WORKER LEADER SPOKE WITH THE DAUGHTER AND UPDATED HER. PT IS RESTING COMFORTABLY IN HER ROOM AND IS ABLE TO MAKE HER NEEDS KNOWN. CALL LIGHT IS IN REACH.
--- NOTE | 2019-05-05 20:00 | NUR ---
1999-RAVI IS AOX3, COOPERATIVE. WONDERING WHY SHE DID NOT GO HOME TODAY. INFORMED HER DOCTOR WANTED HER TO STAY ANOTHER NIGHT. DENIES PAIN OR DISCOMFORT. LUNG SOUNDS DIMINISHED THROUGHOUT, NO COUGH AT THIS TIME. DENIES SOB. OXYGEN 2 LITERS NC. HR WITH MURMUR. NO CHEST PAIN OR PALPITATIONS. NO EDEMA. WILL CONTINUE TO MONITOR, CALL LIGHT IN REACH.
--- NOTE | 2019-05-06 05:49 | NUR ---
SHIFT SUMMARY: RAVI SLEPT WELL DURING THE NIGHT. NO APPARENT DISTRESS OR PAIN NOTED. VSS/AFEBRILE. SATS REMAINED IN THE 90'S ON 2 LITERS OF 02 NC. CHRONIC GILLETTE CATHETER REMAINED PATENT AND DRAINING. TOOK MEDS WHOLE WITH WATER. NO BM NOTED THIS SHIFT. HOME O2 IN ROOM READY FOR HER TO GO HOME TODAY. NO OTHER CHANGES TO REPORT THIS SHIFT.
[2019-05-06] MEDS ORDERED: LEVOFLOXACIN250 MG PO (11:53)
--- NOTE | 2019-05-06 13:14 | NUR ---
DISCHARGE DISCHARGE MEDICATIONS AND INSTRUCTIONS EXPLAINED TO PATIENT. INFORMATION PACKET GIVEN TO DIESEL TRACTOR ENGINE MECHANIC TO DELIVER TO PATIENT'S CAREGIVER WHO IS MEETING THE PATIENT AT THE PATIENT'S HOME AFTER PICKING UP PRESCRIPTIONS. DAUGHTER IN LAW CYDNEY AWARE OF DISCHARGE. PATIENT WOULD LIKE TO CONTINUE WITH [facility]. PATIENT TRANSPORTED WITH PORTABLE OXYGEN AND CHRONIC GILLETTE.IV REMOVED WITHOUT DIFFICULTY. BELONGINGS WITH PATIENT. [facility] TO CONTACT PATIENT AT HOME TO SCHEDULE FOLLOW UP APPOINTMENT.
== END 2019-05-06 13:06 | disposition home health service (06) | DRG 698 ==
LOC: ER 18:09 → MEDS 18:10
PROVIDERS: Family Medicine; Internal Medicine; Physician Assistant; ADMIT Internal Medicine
DX: T83.511A Infection and inflammatory reaction due to indwelling urethral catheter, initial encounter (principal); J96.01 Acute respiratory failure with hypoxia; J18.9 Pneumonia, unspecified organism; G92 Toxic encephalopathy; J44.0 Chronic obstructive pulmonary disease with (acute) lower respiratory infection; N39.0 Urinary tract infection, site not specified; B96.5 Pseudomonas (aeruginosa) (mallei) (pseudomallei) as the cause of diseases classified elsewhere; I12.9 Hypertensive chronic kidney disease with stage 1 through stage 4 chronic kidney disease, or unspecified chronic kidney disease; N18.3 Chronic kidney disease, stage 3 (moderate); I35.0 Nonrheumatic aortic (valve) stenosis; E11.22 Type 2 diabetes mellitus with diabetic chronic kidney disease; E11.40 Type 2 diabetes mellitus with diabetic neuropathy, unspecified; E11.319 Type 2 diabetes mellitus with unspecified diabetic retinopathy without macular edema; K21.9 Gastro-esophageal reflux disease without esophagitis; M10.9 Gout, unspecified; M19.90 Unspecified osteoarthritis, unspecified site; E78.5 Hyperlipidemia, unspecified; E86.0 Dehydration; Z66 Do not resuscitate; Z79.02 Long term (current) use of antithrombotics/antiplatelets; Z86.73 Personal history of transient ischemic attack (TIA), and cerebral infarction without residual deficits
CPT/HCPCS: 36415; 71045; 80053; 80069; 81001; 83880; 85025; 87077; 87086; 87186; 93306; 94640; 94760; 94761; 96365; 96372; 96375; 97110; 97116; 97161; 97165; 97530; 99285-25; A9270; A9270-GY; G0378; J0696; J1650; J1956; J2405; J7030; J7050

== ENCOUNTER 2019-05-25 11:16 | Inpatient (IN) | payer OTHER ==
[~2019-05-25] VITALS: Ht 167.6 cm; Wt 68.9 kg
[~2019-05-25 11:16] MED LIST changes: +ALBU90OI INH; +Acetaminophen325 M1 PO; +BUDE6HFA INH; +CALCIUM 600 +1 EA10 PO; +Colace100 MG PO; +DICLOFENAC SOD100 G1 TOP; +FISH OIL 1,4001 EACH PO; +FOCUS FACTOR PO; +Ferrous Sulfat325 M2 PO; +GAVILAX17 GM PO; +LEVOFLOXACIN250 MG PO; +LOSA25 PO; +OCUVITE ADULT1 EAC1 PO; +OMEP20ER PO; +ONDA4ODT; +THERA-D2000 UNIT PO
[2019-05-25] MEDS ORDERED: COLCHICINE0.6 MG PO (11:29)
[2019-05-25 11:45] LABS: BASOPHILS ABSOLUTE AUTO 0.03 K/mm3 (0.00-0.23); BASOPHILS PERCENT AUTO 0 % (0-2); EOSINOPHILS ABSOLUTE AUTO 0.05 K/mm3 (0.00-0.68); EOSINOPHILS PERCENT AUTO 0 % (0-6); Hematocrit 34.3 % (33.0-51.0); Hemoglobin 10.7 g/dL (11.5-16.0); IMMATURE GRAN ABSOLUTE AUTO 0.13 K/mm3 (0.00-0.10); IMMATURE GRAN PERCENT AUTO 1 % (0-1); LYMPHOCYTES ABSOLUTE AUTO 0.93 K/mm3 (0.84-5.20); LYMPHOCYTES PERCENT AUTO 5 % (21-46); MONOCYTES ABSOLUTE AUTO 1.73 K/mm3 (0.16-1.47); MONOCYTES PERCENT AUTO 8 % (4-13); Mean Corpuscular HGB 28.5 pg (26.0-34.0); Mean Corpuscular HGB Conc 31.2 g/dL (31.5-36.5); Mean Corpuscular Volume 92 fL (80-100); Mean Platelet Volume 9.2 fL (9.1-12.4); NEUTROPHILS ABSOLUTE AUTO 17.78 K/mm3 (1.96-9.15); NEUTROPHILS PERCENT AUTO 86 % (41-73); Platelet Count 192 K/mm3 (150-400); RDW Coefficient Variation 13.6 % (11.7-14.2); RDW Standard Deviation 45.7 fL (35.1-46.3); Red Blood Cell Count 3.75 M/mm3 (3.80-5.20); White Blood Cell Count 20.65 K/mm3 (4.00-11.30)
[2019-05-25 11:53] LABS: Albumin, Blood 2.7 g/dL (3.4-5.0); Albumin/Globulin Ratio 0.8 (0.8-1.8); Bilirubin, Total 0.3 mg/dL (0.1-1.0); Bun/Creatinine Ratio 27.4 (12.0-20.0); Calcium, Blood 8.5 mg/dL (8.5-10.1); Creatinine, Blood 1.35 mg/dL (0.40-1.00); Globulin, Blood 3.2 g/dL (2.2-4.0); Potassium, Blood 3.8 mmol/L (3.5-5.5); Total Protein, Blood 5.9 g/dL (6.4-8.2)
[2019-05-25 12:36] LABS: Source, Urine Catheter
[2019-05-25 12:47] LABS: Bilirubin, Urine Neg (Neg); Blood, Urine 1+ (Neg); Glucose Qualitative, Urine Neg (Neg); Ketones, Urine Neg (Neg); Leukocyte Esterase, Urine 3+ (Neg); Nitrite, Urine Neg (Neg); Protein, Urine 2+ (Neg); Urobilinogen, Urine NORM (Normal)
[2019-05-25 13:01] LABS: Appearance, Urine Hazy (Clear); Color, Urine Yellow (P-Yellow); White Blood Cells, Urine 50-100 /hpf (0-5)
[2019-05-25 13:03] LABS: Bacteria Mod /hpf; Red Blood Cells, Urine 0-2 /hpf (0-2); Squamous Epithelial Cells Rare /hpf (Few)
[2019-05-25 16:01] LABS: Source, Urine Catheter
[2019-05-25 16:08] LABS: Bilirubin, Urine Neg (Neg); Blood, Urine 1+ (Neg); Glucose Qualitative, Urine Neg (Neg); Ketones, Urine Neg (Neg); Leukocyte Esterase, Urine 3+ (Neg); Nitrite, Urine Neg (Neg); Protein, Urine 1+ (Neg); Specific Gravity, Urine 1.015 (1.003-1.022); Urobilinogen, Urine NORM (Normal)
[2019-05-25 16:13] LABS: Appearance, Urine Hazy (Clear); Color, Urine Yellow (P-Yellow)
[2019-05-25 16:14] LABS: Bacteria Many /hpf; Hyaline Casts 0-2 /lpf (0-2); Mucus Light (0-Heavy); Red Blood Cells, Urine 0-2 /hpf (0-2); Squamous Epithelial Cells Few /hpf (Few); Transitional Epithelial Cells Few /hpf (0-Rare)
[2019-05-26 04:36] LABS: BASOPHILS ABSOLUTE AUTO 0.03 K/mm3 (0.00-0.23); BASOPHILS PERCENT AUTO 0 % (0-2); EOSINOPHILS ABSOLUTE AUTO 0.11 K/mm3 (0.00-0.68); EOSINOPHILS PERCENT AUTO 1 % (0-6); Hematocrit 27.6 % (33.0-51.0); Hemoglobin 8.6 g/dL (11.5-16.0); IMMATURE GRAN ABSOLUTE AUTO 0.09 K/mm3 (0.00-0.10); IMMATURE GRAN PERCENT AUTO 1 % (0-1); LYMPHOCYTES ABSOLUTE AUTO 1.66 K/mm3 (0.84-5.20); LYMPHOCYTES PERCENT AUTO 11 % (21-46); MONOCYTES ABSOLUTE AUTO 0.93 K/mm3 (0.16-1.47); MONOCYTES PERCENT AUTO 6 % (4-13); Mean Corpuscular HGB 28.5 pg (26.0-34.0); Mean Corpuscular HGB Conc 31.2 g/dL (31.5-36.5); Mean Corpuscular Volume 91 fL (80-100); Mean Platelet Volume 9.5 fL (9.1-12.4); NEUTROPHILS ABSOLUTE AUTO 12.45 K/mm3 (1.96-9.15); NEUTROPHILS PERCENT AUTO 82 % (41-73); Platelet Count 144 K/mm3 (150-400); RDW Standard Deviation 46.9 fL (35.1-46.3); Red Blood Cell Count 3.02 M/mm3 (3.80-5.20); White Blood Cell Count 15.27 K/mm3 (4.00-11.30)
[2019-05-26 04:58] LABS: Albumin, Blood 2.3 g/dL (3.4-5.0); Albumin/Globulin Ratio 0.7 (0.8-1.8); Bilirubin, Total 0.2 mg/dL (0.1-1.0); Bun/Creatinine Ratio 25.2 (12.0-20.0); Calcium, Blood 8.7 mg/dL (8.5-10.1); Creatinine, Blood 1.59 mg/dL (0.40-1.00); Globulin, Blood 3.2 g/dL (2.2-4.0); Potassium, Blood 4.5 mmol/L (3.5-5.5); Total Protein, Blood 5.5 g/dL (6.4-8.2)
--- NOTE | 2019-05-26 16:58 | NUR ---
SHIFT SUMMARY VSS. PT/OT WORKED WITH HER TODAY AND SHE IS 1PA. SHE IS VERY PLEASANT. DENIES NEEDS OR OTHER COMPLAINTS. IVF CONTINUED. AWAITING CULTURES PRIOR TO DC. HAVE KEPT FAMILY (CYDNEY, BEBETO) UPDATED REGULARLY.
--- NOTE | 2019-05-27 06:35 | NUR ---
SHIFT SUMMARY PATIENT ALERT AND ORIENTED X4. STAYED IN BED ALL SHIFT AND WAS ABLE TO GET SOME GOOD SLEEP OVERNIGHT. PATIENT MEDICATED FOR PAIN PER EMAR. IV PATENT AND INFUSING WITH NORMAL SALINE AT 75 ML/HR. BED IN LOWEST POSITION WITH WHEELS LOCKED. CALL LIGHT WITHIN REACH. REPORT GIVEN TO ONCOMING RN.
--- NOTE | 2019-05-27 07:28 | NUR ---
PHYSICIAN COMMUNICATION INFORMED MARGARITAEEN , DR KRAMER, THAT THE PATIENT HAD POSITIVE BLOOD CULTURES RETURN WITH GRAM POSITIVE COCCI IN CLUSTERS. PATIENT AFEBRILE AND IN GOOD ENERGY.
--- NOTE | 2019-05-27 17:20 | NUR ---
PATIENT IS ALERT AND ORIENTED AND COOPERATIVE WITH CARE. GILLETTE IN PLACE, DRAINING. 1PA TO CHAIR AND BSC. PATIENT HAS A CAREGIVER AT HOME. PATIENT'S [id number] AND SON LIVES IN [place], THEY ARE VERY INVOLVED IN HER CARE. WILL CONTINUE TO MONITOR
[2019-05-28 04:45] LABS: BASOPHILS ABSOLUTE AUTO 0.01 K/mm3 (0.00-0.23); BASOPHILS PERCENT AUTO 0 % (0-2); EOSINOPHILS PERCENT AUTO 4 % (0-6); Hematocrit 27.9 % (33.0-51.0); Hemoglobin 8.8 g/dL (11.5-16.0); IMMATURE GRAN ABSOLUTE AUTO 0.03 K/mm3 (0.00-0.10); IMMATURE GRAN PERCENT AUTO 0 % (0-1); LYMPHOCYTES ABSOLUTE AUTO 1.81 K/mm3 (0.84-5.20); LYMPHOCYTES PERCENT AUTO 24 % (21-46); MONOCYTES ABSOLUTE AUTO 0.58 K/mm3 (0.16-1.47); MONOCYTES PERCENT AUTO 8 % (4-13); Mean Corpuscular HGB 28.9 pg (26.0-34.0); Mean Corpuscular HGB Conc 31.5 g/dL (31.5-36.5); Mean Corpuscular Volume 92 fL (80-100); Mean Platelet Volume 9.6 fL (9.1-12.4); NEUTROPHILS PERCENT AUTO 64 % (41-73); Platelet Count 166 K/mm3 (150-400); RDW Coefficient Variation 13.8 % (11.7-14.2); RDW Standard Deviation 46.3 fL (35.1-46.3); Red Blood Cell Count 3.05 M/mm3 (3.80-5.20); White Blood Cell Count 7.53 K/mm3 (4.00-11.30)
[2019-05-28 05:15] LABS: Albumin, Blood 2.4 g/dL (3.4-5.0); Albumin/Globulin Ratio 0.8 (0.8-1.8); Bilirubin, Total 0.2 mg/dL (0.1-1.0); Calcium, Blood 8.9 mg/dL (8.5-10.1); Creatinine, Blood 1.5 mg/dL (0.40-1.00); Globulin, Blood 3.2 g/dL (2.2-4.0); Total Protein, Blood 5.6 g/dL (6.4-8.2)
--- NOTE | 2019-05-28 05:22 | NUR ---
FELT FINISHER SUMMARY NO ACUTE CHANGES THIS SHIFT. PT AAOX4 AND PLEASANT. 1 ASSIST TO BATHROOM WITH FWW. GIVEN TYLENOL AT HS FOR R LEG PAIN THE PT STATES SHE HAS HAD FOR 3-4 WEEKS. IV FLUIDS DC'D PER DR KRAMER. VSS, WILL CONTINUE TO MONITOR.
[2019-05-28] MEDS ORDERED: Amoxicillin500 MG PO (14:19)
--- NOTE | 2019-05-28 15:57 | NUR ---
Upon receiving a referral for spiritual care, I visit patient. Patient immediately tells me that she is going home today and that she is feeling much better. Patient shares about her family, her living situation with care givers and her excitement for going home. Patient tells me that she appreciated the time and care this journalists and other writers gave patient during her last admission to the hospital and is glad she got to see me before she left. I listen empathically and provide a prayer and blessing for patient and all those in her [place].
== END 2019-05-28 16:18 | disposition home or self-care (01) | DRG 698 ==
LOC: ER 11:16 → MEDS 11:17 → ENPENDDIS 05-28 14:20 → MEDS 05-28 16:18
PROVIDERS: Emergency Medicine; Internal Medicine; ADMIT Family Medicine
DX: T83.511A Infection and inflammatory reaction due to indwelling urethral catheter, initial encounter (principal); A41.81 Sepsis due to Enterococcus; J18.9 Pneumonia, unspecified organism; J44.0 Chronic obstructive pulmonary disease with (acute) lower respiratory infection; I13.0 Hypertensive heart and chronic kidney disease with heart failure and stage 1 through stage 4 chronic kidney disease, or unspecified chronic kidney disease; J96.11 Chronic respiratory failure with hypoxia; N39.0 Urinary tract infection, site not specified; E11.22 Type 2 diabetes mellitus with diabetic chronic kidney disease; N18.3 Chronic kidney disease, stage 3 (moderate); I50.9 Heart failure, unspecified; G47.33 Obstructive sleep apnea (adult) (pediatric); E78.5 Hyperlipidemia, unspecified; I35.0 Nonrheumatic aortic (valve) stenosis; Z99.81 Dependence on supplemental oxygen; E11.42 Type 2 diabetes mellitus with diabetic polyneuropathy; Z87.891 Personal history of nicotine dependence
CPT/HCPCS: 36415; 71045; 80053; 81001; 82947; 83605; 83690; 85025; 87040; 87077; 87086; 87186; 94640; 94760; 96361; 96365; 96367; 96372; 96375; 96376; 97110; 97116; 97162; 97166; 97535; 99285-25; A9270; A9270-GY; G0378; J0696; J1644; J1956; J7030

== ENCOUNTER 2019-07-02 12:26 | Inpatient (IN) | payer OTHER ==
[~2019-07-02] VITALS: Ht 162.6 cm; Wt 67.7 kg
[~2019-07-02 12:26] MED LIST changes: +Amoxicillin500 MG PO; +Florastor250 MG PO; +LEVFLO500 PO; +LEVO750 PO; +OCUVITE ADULT1 EAC1; +OYSTER SHELL 51 EACH PO
[2019-07-02 17:11] LABS: BASOPHILS ABSOLUTE AUTO 0.04 K/mm3 (0.00-0.23); BASOPHILS PERCENT AUTO 0 % (0-2); EOSINOPHILS ABSOLUTE AUTO 0.04 K/mm3 (0.00-0.68); EOSINOPHILS PERCENT AUTO 0 % (0-6); Hematocrit 29.1 % (33.0-51.0); Hemoglobin 9.1 g/dL (11.5-16.0); IMMATURE GRAN ABSOLUTE AUTO 0.12 K/mm3 (0.00-0.10); IMMATURE GRAN PERCENT AUTO 1 % (0-1); LYMPHOCYTES ABSOLUTE AUTO 1.22 K/mm3 (0.84-5.20); LYMPHOCYTES PERCENT AUTO 6 % (21-46); MONOCYTES ABSOLUTE AUTO 1.03 K/mm3 (0.16-1.47); MONOCYTES PERCENT AUTO 5 % (4-13); Mean Corpuscular HGB 28.2 pg (26.0-34.0); Mean Corpuscular HGB Conc 31.3 g/dL (31.5-36.5); Mean Corpuscular Volume 90 fL (80-100); Mean Platelet Volume 9.3 fL (9.1-12.4); NEUTROPHILS ABSOLUTE AUTO 17.52 K/mm3 (1.96-9.15); NEUTROPHILS PERCENT AUTO 88 % (41-73); Platelet Count 234 K/mm3 (150-400); RDW Coefficient Variation 13.3 % (11.7-14.2); RDW Standard Deviation 44.1 fL (35.1-46.3); Red Blood Cell Count 3.23 M/mm3 (3.80-5.20); White Blood Cell Count 19.97 K/mm3 (4.00-11.30)
[2019-07-02 17:13] LABS: Source, Urine Clean Catch
[2019-07-02 17:15] LABS: Bilirubin, Urine Neg (Neg); Blood, Urine 2+ (Neg); Glucose Qualitative, Urine Neg (Neg); Ketones, Urine Neg (Neg); Leukocyte Esterase, Urine 3+ (Neg); Nitrite, Urine Pos (Neg); Protein, Urine 2+ (Neg); Urobilinogen, Urine NORM (Normal)
[2019-07-02 17:27] LABS: Appearance, Urine Hazy (Clear); Color, Urine Yellow (P-Yellow)
[2019-07-02 17:30] LABS: Bacteria Many /hpf; Squamous Epithelial Cells Not Seen /hpf (Few); White Blood Cells, Urine TNTC /hpf (0-5)
[2019-07-02 17:33] LABS: Albumin, Blood 2.5 g/dL (3.4-5.0); Albumin/Globulin Ratio 0.6 (0.8-1.8); Bilirubin, Total 0.3 mg/dL (0.1-1.0); Bun/Creatinine Ratio 20.5 (12.0-20.0); Calcium, Blood 9.6 mg/dL (8.5-10.1); Creatinine, Blood 1.66 mg/dL (0.40-1.00); Globulin, Blood 4.1 g/dL (2.2-4.0); Potassium, Blood 4.2 mmol/L (3.5-5.5); Total Protein, Blood 6.6 g/dL (6.4-8.2)
[2019-07-02 23:09] LABS: Source, Urine Catheter
[2019-07-02 23:11] LABS: Appearance, Urine Hazy (Clear); Bilirubin, Urine Neg (Neg); Blood, Urine 1+ (Neg); Color, Urine Yellow (P-Yellow); Glucose Qualitative, Urine Neg (Neg); Ketones, Urine 1+ (Neg); Leukocyte Esterase, Urine 2+ (Neg); Nitrite, Urine Neg (Neg); Protein, Urine 2+ (Neg); Urobilinogen, Urine NORM (Normal)
[2019-07-02 23:25] LABS: Bacteria Mod /hpf; Red Blood Cells, Urine 0-2 /hpf (0-2); Squamous Epithelial Cells Rare /hpf (Few)
[2019-07-02 23:26] LABS: Amorphous Mod (0-Heavy); Mucus Light (0-Heavy)
[2019-07-03 03:53] LABS: BASOPHILS ABSOLUTE AUTO 0.03 K/mm3 (0.00-0.23); BASOPHILS PERCENT AUTO 0 % (0-2); EOSINOPHILS PERCENT AUTO 1 % (0-6); Hematocrit 25.8 % (33.0-51.0); Hemoglobin 7.9 g/dL (11.5-16.0); IMMATURE GRAN ABSOLUTE AUTO 0.06 K/mm3 (0.00-0.10); IMMATURE GRAN PERCENT AUTO 0 % (0-1); LYMPHOCYTES ABSOLUTE AUTO 1.86 K/mm3 (0.84-5.20); LYMPHOCYTES PERCENT AUTO 12 % (21-46); MONOCYTES ABSOLUTE AUTO 0.88 K/mm3 (0.16-1.47); MONOCYTES PERCENT AUTO 6 % (4-13); Mean Corpuscular HGB 27.9 pg (26.0-34.0); Mean Corpuscular HGB Conc 30.6 g/dL (31.5-36.5); Mean Corpuscular Volume 91 fL (80-100); Mean Platelet Volume 9.4 fL (9.1-12.4); NEUTROPHILS ABSOLUTE AUTO 12.32 K/mm3 (1.96-9.15); NEUTROPHILS PERCENT AUTO 81 % (41-73); Platelet Count 195 K/mm3 (150-400); RDW Coefficient Variation 13.4 % (11.7-14.2); RDW Standard Deviation 44.8 fL (35.1-46.3); Red Blood Cell Count 2.83 M/mm3 (3.80-5.20); White Blood Cell Count 15.25 K/mm3 (4.00-11.30)
[2019-07-03 04:13] LABS: Alanine Aminotransfer (ALT/SGP 12 U/L (12-78); Albumin, Blood 2.2 g/dL (3.4-5.0); Albumin/Globulin Ratio 0.6 (0.8-1.8); Alk Phos 66 U/L (50-136); Anion Gap 9 mmol/L (6-16); Aspartate Aminotrans (AST/SGOT 13 U/L (12-37); Bilirubin, Total 0.4 mg/dL (0.1-1.0); Blood Urea Nitrogen 37 mg/dL (8-24); Bun/Creatinine Ratio 21.9 (12.0-20.0); CO2, Blood 25 mmol/L (21-32); Calcium, Blood 8.8 mg/dL (8.5-10.1); Chloride, Blood 105 mmol/L (98-108); Creatinine, Blood 1.69 mg/dL (0.40-1.00); Globulin, Blood 3.8 g/dL (2.2-4.0); Glomerular Filtration Rate 31 (60-); Glucose, Blood 91 mg/dL (70-99); Potassium, Blood 3.9 mmol/L (3.5-5.5); Sodium, Blood 139 mmol/L (136-145); Vancomycin, Random 10.6 ug/mL
--- NOTE | 2019-07-03 06:06 | NUR ---
SHIFT SUMMARY PT IN ROOM SLEEPING COMFORTABLY AT THIS TIME. NO ACUTE CHANGES IN STATUS SINCE ARRIVAL. RESP EVEN UNLABORED ON 3L NC W/ SATS >92%. PT DENIED CP OR SOB T/O NGIHT. PIV INFUSING NS AT 75ML/HR. GILLETTE CATH CHANGED UPON ARRIVAL. DRAINING TO GRAVITY. BED ALARM ON FOR SAFETY. CALL LIGHT IN REACH.
--- NOTE | 2019-07-03 18:22 | NUR ---
SHIFT NOTE PT HAS BEEN RESTING IN BED T/O THE DAY, HAS BEEN SLEEPING DURING MOST ROUNDING. PT HAS BEEN A/O X3 TODAY, ANSWERING MOST QUESTIONS APPROPRIATELY IN FULL SENTENCES. PT REMAINS ON 3L O2 VIA NASAL CANNULA. PT STS THAT SHE USES O2 ONLY AT NIGHT WHEN AT HOME. PT HAS DENIED CP SOB TODAY. PT HAS BEEN TALKING ON PHONE T/O THE DAY. REPORTS SOME RT SIDED NEUROPATHY PAIN TO RT HEEL
--- NOTE | 2019-07-03 20:15 | NUR ---
CARE ASSUMPTION PT MEDICAL NO TELE STATUS. A&O X4. VSS. SPO2 > 92% ON 3L NC. PT DENIES PAIN/DISCOMFORT AT THIS TIME. GILLETTE CATH PATENT AND DRAINING. NS GTT INFUSING PER ORDERS. WILL CONTINUE TO MONITOR & PROVIDE CARE.
--- NOTE | 2019-07-03 22:30 | NUR ---
2230 RECEIVED REPORT FROM MARIA D HAJIU RN. AWAITING PT TRANSPORT AT THIS TIME.
--- NOTE | 2019-07-03 23:21 | NUR ---
TRANSFER NOTE REPORT CALLED TO MEDICAL FLOOR RN ASSUMING CARE OF PT. PT 1 PERSON ASSIST W/ GAITBELT TO WHEEL CHAIR FOR TRANSPORTATION BY DEPUTY [place] [employer] @ 8607.
--- NOTE | 2019-07-03 23:30 | NUR ---
2330 PT TRANSFERRED TO MEDICAL FLOOR VIA W/C. TRANSFERRED WITH GAIT BELT AND 1 ASSIST TO HOSPITAL BED. NO S/S ACUTE DISTRESS NOTED. PLEASANT AND COOPERATIVE WITH CARES. PT SITUATED AND MADE COMFORTABLE. CALL LIGHT, POSSESSIONS IN REACH, BED IN LOWEST POSITION WITH ALARMS ON. WILL CONTINUE TO MONITOR.
--- NOTE | 2019-07-04 03:12 | NUR ---
SHIFT SUMMARY PT HAS HAD AN UNEVENTFUL NIGHT SINCE TRANSFERRING TO THE FLOOR. SLEEPING MOST OF THE TIME. NO ACUTE CHANGES NOTED FROM SHIFT ASSESSMENT, PT VS STABLE. WAS MONITORED EVERY 1-2 HOURS WITH NEEDS MET. DENIES NEEDS AT THIS TIME. CALL LIGHT, POSSESSIONS IN REACH, BED IN LOWEST POSITION WITH ALARMS ON. WILL CONTINUE TO MONITOR UNTIL DAY RN ASSUMES CARE.
[2019-07-04 05:13] LABS: BASOPHILS ABSOLUTE AUTO 0.02 K/mm3 (0.00-0.23); BASOPHILS PERCENT AUTO 0 % (0-2); EOSINOPHILS PERCENT AUTO 3 % (0-6); Hematocrit 24.9 % (33.0-51.0); Hemoglobin 7.6 g/dL (11.5-16.0); IMMATURE GRAN ABSOLUTE AUTO 0.05 K/mm3 (0.00-0.10); IMMATURE GRAN PERCENT AUTO 1 % (0-1); LYMPHOCYTES ABSOLUTE AUTO 1.72 K/mm3 (0.84-5.20); LYMPHOCYTES PERCENT AUTO 17 % (21-46); MONOCYTES ABSOLUTE AUTO 0.57 K/mm3 (0.16-1.47); MONOCYTES PERCENT AUTO 6 % (4-13); Mean Corpuscular HGB 27.6 pg (26.0-34.0); Mean Corpuscular HGB Conc 30.5 g/dL (31.5-36.5); Mean Corpuscular Volume 91 fL (80-100); Mean Platelet Volume 9.5 fL (9.1-12.4); NEUTROPHILS ABSOLUTE AUTO 7.43 K/mm3 (1.96-9.15); NEUTROPHILS PERCENT AUTO 74 % (41-73); Platelet Count 211 K/mm3 (150-400); RDW Coefficient Variation 13.6 % (11.7-14.2); Red Blood Cell Count 2.75 M/mm3 (3.80-5.20); White Blood Cell Count 10.09 K/mm3 (4.00-11.30)
[2019-07-04 05:40] LABS: Albumin, Blood 2.1 g/dL (3.4-5.0); Albumin/Globulin Ratio 0.5 (0.8-1.8); Bilirubin, Total 0.4 mg/dL (0.1-1.0); Calcium, Blood 8.7 mg/dL (8.5-10.1); Creatinine, Blood 1.67 mg/dL (0.40-1.00); Globulin, Blood 3.9 g/dL (2.2-4.0); Magnesium, Blood 2.2 mg/dL (1.6-2.4); Potassium, Blood 3.7 mmol/L (3.5-5.5)
--- NOTE | 2019-07-04 11:41 | NUR ---
Spiritual care visit conducted. Patient is sitting up in bed and resting but easily awakens to the sound of her name. Patient tells me about her health issues, her family (son Mike and his Cecilia and their family are in the area) and her arpit. After some conversation, patient shows no signs of spiritual distress. Patient had requested a cell lead visit for prayer and support. I listen empathically and provide emotional support and prayer. Patient responds well and shows signs of being encouraged. I will continue to remain available to patient and family.
--- NOTE | 2019-07-04 17:58 | NUR ---
SHIFT SUMMARY. A&OX4, PLEASANAT AND COOPERATIVE WITH CARE, 1 ASSIST TO BSC WITH FWW. PT HAS NOT BEEN IMPULSIVE AND USES CALL LIGHT APPROPRIATELY. PT DENIES PAIN, SOB, N/V. GILLETTE PATENT AND DRAINING. CONTINUES WITH IV FLUIDS. DR. PALM CONSULTED THIS EVENING, THIS RN WAS PRESENT, PT REPORTED TO DR. PALM THAT SHE WANTS TO CONTINUE TO LIVE AND IS ACCEPTING OF INTERVENTIONS TO PROLONG HER LIFE. CONTINUES WITH IV HYDRATION AND ANTIBIOTICS. NO OTHER CHANGES OR CONCERNS.
--- NOTE | 2019-07-05 02:00 | NUR ---
83 year old Female with multiple medical problems continues on antibiotics IV to tx sepsis. She is on zosyn & vancomycin. PT had DR Baxter consult & new orders recieved. PT with chronic nichols changed on 07/02/19. PT is on baseline oxygen 2 l & at baseline. Alert & pleasant. Lives alone. Has Son & DTR in Law in area & PT has tiny dog. Continues on normal saline DR Baxter increased rate, AM labs ordered. Pharmacy managing antibiotics. Medicated at HS with tramadol 50 mg which PT takes at home to help with sleep.
[2019-07-05 04:48] LABS: Hematocrit 23.8 % (33.0-51.0); Hemoglobin 7.4 g/dL (11.5-16.0)
[2019-07-05 05:14] LABS: Albumin, Blood 2.3 g/dL (3.4-5.0); Anion Gap 9 mmol/L (6-16); Blood Urea Nitrogen 26 mg/dL (8-24); Bun/Creatinine Ratio 17.6 (12.0-20.0); CO2, Blood 24 mmol/L (21-32); Calcium, Blood 8.8 mg/dL (8.5-10.1); Chloride, Blood 110 mmol/L (98-108); Creatinine, Blood 1.48 mg/dL (0.40-1.00); Glomerular Filtration Rate 36 (60-); Glucose, Blood 112 mg/dL (70-99); Phosphorus, Blood 3.4 mg/dL (2.5-4.9); Potassium, Blood 3.8 mmol/L (3.5-5.5); Sodium, Blood 143 mmol/L (136-145); Vancomycin, Trough 14.7 ug/mL (5.0-10.0)
--- NOTE | 2019-07-05 16:54 | NUR ---
SHIFT SUMMARY PT RECIEVED 1 UNIT PRBC THIS SHIFT FOR LOW HGB PER PHYSICIAN ORDERS. PT TOLERATED TRANSFUSION WELL. PT UP TO CHAIR FOR MEALS. PT IN BED WITH CALL LIGHT IN REACH. NO ACUTE CHANGES THIS SHIFT.
--- NOTE | 2019-07-06 01:50 | NUR ---
HAS BEEN RESTING QUIETLY FOR MUCH OF THE SHIFT SINCE HS. IVF INFUSING PER MD ORDERS AND ANTIBITICS INFUSING AT THIS TIME. SEE MAR FOR DETAILS. CALL LIGHT IN REACH. DENIED PAIN. NO NOTED DISTRESS.
[2019-07-06 05:07] LABS: Hematocrit 28.1 % (33.0-51.0); Hemoglobin 8.9 g/dL (11.5-16.0)
[2019-07-06 05:47] LABS: Albumin, Blood 2.2 g/dL (3.4-5.0); Anion Gap 9 mmol/L (6-16); Blood Urea Nitrogen 23 mg/dL (8-24); Bun/Creatinine Ratio 15.5 (12.0-20.0); CO2, Blood 23 mmol/L (21-32); Calcium, Blood 8.5 mg/dL (8.5-10.1); Chloride, Blood 111 mmol/L (98-108); Creatinine, Blood 1.48 mg/dL (0.40-1.00); Glomerular Filtration Rate 36 (60-); Glucose, Blood 146 mg/dL (70-99); Magnesium, Blood 1.8 mg/dL (1.6-2.4); Phosphorus, Blood 3.8 mg/dL (2.5-4.9); Potassium, Blood 4.3 mmol/L (3.5-5.5); Sodium, Blood 143 mmol/L (136-145)
--- NOTE | 2019-07-06 06:25 | NUR ---
SHIFT SUMMARY RESTING QUIETLY WITHOUT NOTED SIGNS OF DISTRESS THIS SHIFT, CALL LIGHT IN REACH. DENIED PAIN WHEN AWAKE DURING ROUNDS. IVF INFUSED PER MD ORDERS AND ABX SDMIN PER APR.
--- NOTE | 2019-07-06 18:15 | NUR ---
SHIFT SUMMARY PT HAS BEEN SLEEPING A LOT OF THE SHIFT. HAS BEEN UP IN CHAIR FOR MEALS AND TOOK SHOWER TODAY. MEDICATED FOR LEFT HIP PAIN THIS AM PER EMAR. PT ON 2 LITERS OXYGEN, WHICH IS PT'S BASELINE. NO ACUTE CHANGES THIS SHIFT. CALL LIGHT IN REACH. WILL CONTINUE TO MONITOR AND REPORT TO ONCOMING RN.
--- NOTE | 2019-07-07 04:54 | NUR ---
SHIFT SUMMARY ASSUMED CARE OF PT AT 1900. PT IS A/OX4 WITH TIMES OF CONFUSION, DENIES N/T IN EXTREMITES. HEART SOUNDS HAVE A MURMUR, DENIES CP AT THIS TIME. LUNG SOUNDS HAVE WHEEZING AND CRACKLES T/O, DENIES CP/SOB AT THIS TIME. CATHETER DRAINING WITH GRAVITY, URINE YELLOW AND CLEAR. NO ACUTE EVENTS DURING THE NIGHT. PT SLEPT T/O THE NIGHT. CALL LIGHT IN REACH, BED IN LOWEST POSTION, WILL CONTINUE TO MONITOR UNTIL DAYSHIFT NURSE ARRIVES.
[2019-07-07 05:10] LABS: Hematocrit 28.1 % (33.0-51.0); Hemoglobin 8.9 g/dL (11.5-16.0)
[2019-07-07 05:36] LABS: Albumin, Blood 2.1 g/dL (3.4-5.0); Anion Gap 6 mmol/L (6-16); Blood Urea Nitrogen 18 mg/dL (8-24); Bun/Creatinine Ratio 11.9 (12.0-20.0); CO2, Blood 25 mmol/L (21-32); Calcium, Blood 8.8 mg/dL (8.5-10.1); Chloride, Blood 110 mmol/L (98-108); Creatinine, Blood 1.51 mg/dL (0.40-1.00); Glomerular Filtration Rate 35 (60-); Glucose, Blood 93 mg/dL (70-99); Magnesium, Blood 1.8 mg/dL (1.6-2.4); Phosphorus, Blood 3.5 mg/dL (2.5-4.9); Potassium, Blood 4.1 mmol/L (3.5-5.5); Sodium, Blood 141 mmol/L (136-145)
--- NOTE | 2019-07-07 11:19 | NUR ---
Spiritual care visit conducted. Patient is sitting on a chair and alert. Patient tells me about her small increases with PT. Patient feels she is getting stronger and less dizzy and hopes to DC next day or day following. Patient tells me about her conversations with her sister Imelda who lives in [place] and her daughter Cecilia who lives locally. I listen empathically and provide companionship and prayer. Patient responds well and shows signs of an elevated mood. I will continue to remain available to patient and family.
--- NOTE | 2019-07-07 14:30 | NUR ---
FAMILY UPDATED. PT DAUGHTER IN LAW, CYDNEY UPDATED ON PT CONDITION AND PLAN OF CARE.
--- NOTE | 2019-07-07 16:01 | NUR ---
SHIFT SUMMARY PT UP TO CHAIR AFTER WORKING WITH THERAPY. PT IS CONFUSED AT TIMES. EASILY REORIENTED. PT POSIBLE DC TOMORROW PER DR. MA. PT MEDICATED FOR PAIN ONCE THIS SHIFT. NO COMPLAINTS OF PAIN AT THIS TIME. VSS. WILL CONTINUE TO MOINTOR UNTIL TURNOVER IS COMPLETE.
--- NOTE | 2019-07-08 04:00 | NUR ---
SUMMARY PT HAD NO ISSUES NOTED. PT GILLETTE IS DRAINING WELL. PT IS CONFUSED AT TIMES. PT HAS BEEN SLEEPING T/O SHIFT. PT CURRENTLY SLEEPING IN NO DISTRESS. CALL LIGHT IN REACH AND BED ALARM ON. [facility].
[2019-07-08 05:28] LABS: Hematocrit 29.6 % (33.0-51.0); Hemoglobin 9.2 g/dL (11.5-16.0)
[2019-07-08 05:46] LABS: Albumin, Blood 2.1 g/dL (3.4-5.0); Anion Gap 6 mmol/L (6-16); Blood Urea Nitrogen 16 mg/dL (8-24); Bun/Creatinine Ratio 10.1 (12.0-20.0); CO2, Blood 27 mmol/L (21-32); Calcium, Blood 8.8 mg/dL (8.5-10.1); Chloride, Blood 108 mmol/L (98-108); Creatinine, Blood 1.58 mg/dL (0.40-1.00); Glomerular Filtration Rate 33 (60-); Glucose, Blood 87 mg/dL (70-99); Magnesium, Blood 1.9 mg/dL (1.6-2.4); Phosphorus, Blood 3.8 mg/dL (2.5-4.9); Potassium, Blood 4.2 mmol/L (3.5-5.5); Sodium, Blood 141 mmol/L (136-145)
--- NOTE | 2019-07-08 17:16 | NUR ---
SHIFT SUMMARY- PT IS PLESANT AND COOPERATIVE. SHE IS PENDING DISCHARGE TOMORROW WITH HOME HEALTH. SHE HAS A CHRONIC GILLETTE THAT IS PATIENT AND DRAINING. SHE IS EATING AND DRINKING WELL. SHE SLEPT FOR SEVERAL HOURS AFTER LUNCH.
--- NOTE | 2019-07-08 22:31 | NUR ---
2230 DAUGHTER IN LAW CALLED FOR UPDATE. FAMILY WOULD APPRECIATE NOTIFICATION EARLY POSSIBLE REGARDING TIME OF DISCHARGE. FAMILY IS CONCERNED ABOUT HAVING TRANSPORTATION AND CAREGIVERS AVAILABLE.
--- NOTE | 2019-07-09 04:20 | NUR ---
SUMMARY PT HAD NO ISSUES NOTED. PT STATED EARLY IN SHIFT THAT SHE WAS TIRED. PT HAS BEEN SLEEPING T/O SHIFT SINCE NIGHT MEDS. PT GILLETTE HAS BEEN DRAINING CLEAR YELLOW URINE. PT FAMILY CALLED AND WAS UPDATED. DAUGHTER IN LAW WANTS TO BE INFORMED OF TIME OF DISCHARGE. PT CURRENTLY SLEEPING AND BREATHING EASY. CALL LIGHT IN REACH.
[2019-07-09 05:22] LABS: Hematocrit 29.3 % (33.0-51.0); Hemoglobin 9.1 g/dL (11.5-16.0)
[2019-07-09 05:46] LABS: Albumin, Blood 2.1 g/dL (3.4-5.0); Anion Gap 5 mmol/L (6-16); Blood Urea Nitrogen 15 mg/dL (8-24); Bun/Creatinine Ratio 9.7 (12.0-20.0); CO2, Blood 27 mmol/L (21-32); Calcium, Blood 8.4 mg/dL (8.5-10.1); Chloride, Blood 107 mmol/L (98-108); Creatinine, Blood 1.54 mg/dL (0.40-1.00); Glomerular Filtration Rate 34 (60-); Glucose, Blood 84 mg/dL (70-99); Magnesium, Blood 1.8 mg/dL (1.6-2.4); Phosphorus, Blood 3.6 mg/dL (2.5-4.9); Potassium, Blood 4.1 mmol/L (3.5-5.5); Sodium, Blood 139 mmol/L (136-145)
[2019-07-09] MEDS ORDERED: VISBIOME 112.51 EACH PO (09:48)
[2019-07-09] MEDS ORDERED: AMLO5 PO (09:51)
--- NOTE | 2019-07-09 12:02 | NUR ---
patient discharge patient wheeled out via w/c. iv removed, catheter intact. Phone in patient belongings bag, glasses on her face.
== END 2019-07-09 12:00 | disposition home health service (06) | DRG 698 ==
LOC: ER 12:26 → MEDS 21:13 → PCU 21:13 → MEDS 07-03 23:31 → ENPENDDIS 07-09 09:00 → MEDS 07-09 12:00
PROVIDERS: Hospitalist; Internal Medicine Nephrology; Nurse Practitioner Acute Care; Physician Assistant; ADMIT Internal Medicine
DX: T83.511A Infection and inflammatory reaction due to indwelling urethral catheter, initial encounter (principal); A41.9 Sepsis, unspecified organism; N25.81 Secondary hyperparathyroidism of renal origin; N17.9 Acute kidney failure, unspecified; J96.11 Chronic respiratory failure with hypoxia; E46 Unspecified protein-calorie malnutrition; N39.0 Urinary tract infection, site not specified; J44.9 Chronic obstructive pulmonary disease, unspecified; I35.0 Nonrheumatic aortic (valve) stenosis; E11.22 Type 2 diabetes mellitus with diabetic chronic kidney disease; N18.3 Chronic kidney disease, stage 3 (moderate); E11.42 Type 2 diabetes mellitus with diabetic polyneuropathy; I12.9 Hypertensive chronic kidney disease with stage 1 through stage 4 chronic kidney disease, or unspecified chronic kidney disease; E78.5 Hyperlipidemia, unspecified; G47.33 Obstructive sleep apnea (adult) (pediatric); M19.90 Unspecified osteoarthritis, unspecified site; E11.51 Type 2 diabetes mellitus with diabetic peripheral angiopathy without gangrene; Z66 Do not resuscitate; K21.9 Gastro-esophageal reflux disease without esophagitis; D63.1 Anemia in chronic kidney disease; I71.4 Abdominal aortic aneurysm, without rupture; E88.09 Other disorders of plasma-protein metabolism, not elsewhere classified; E86.9 Volume depletion, unspecified; G30.9 Alzheimer's disease, unspecified; F02.80 Dementia in other diseases classified elsewhere, unspecified severity, without behavioral disturbance, psychotic disturbance, mood disturbance, and anxiety; Z79.02 Long term (current) use of antithrombotics/antiplatelets; Z88.6 Allergy status to analgesic agent; Z86.73 Personal history of transient ischemic attack (TIA), and cerebral infarction without residual deficits; Z87.891 Personal history of nicotine dependence; Z99.81 Dependence on supplemental oxygen; Z68.20 Body mass index [BMI] 20.0-20.9, adult
CPT/HCPCS: 36415; 71046; 74176; 80053; 80069; 80202; 81001; 82947; 83605; 83735; 84100; 84145; 85014; 85018; 85025; 86850; 86900; 86901; 86923; 87040; 87077; 87086; 87186; 92610; 94640; 94760; 96365; 97110; 97112; 97162; 97165; 97530; 97535; 99285-25; A9270; A9270-GY; J0881; J1644; J2543; J3370; J7030; J7050; P9016

== ENCOUNTER 2019-09-13 11:17 | Inpatient (IN) | payer OTHER ==
[~2019-09-13] VITALS: Ht 167.6 cm; Wt 68.4 kg
[~2019-09-13 11:17] MED LIST changes: +ACET325 PO; +AMOX-CLAV 875-1 EACH PO; +CEPH500 PO; +FERSU300 PO; +FISH OIL 1,201200 MG PO; -Ferrous Sulfat325 M2 PO; +HIPREX1 G1 PO; +HYDR10 PO; +Magic Bullet10 MG PR; +Magnesium Citr296 ML PO; +SYMBICORT 160-4.6 GM INH; +VISBIOME 112.51 EACH PO
[2019-09-13 12:08] LABS: PCO2 Arterial 37.6 mmHg (35-45); PO2 Arterial 49.4 mmHg (80-100); pH Blood Arterial 7.45 (7.35-7.45)
[2019-09-13 12:42] LABS: Source, Urine Catheter
[2019-09-13 12:51] LABS: Bilirubin, Urine Neg (Neg); Blood, Urine 3+ (Neg); Glucose Qualitative, Urine Neg (Neg); Hematocrit 38.8 % (33.0-51.0); Ketones, Urine 1+ (Neg); Leukocyte Esterase, Urine 3+ (Neg); Mean Corpuscular HGB 27.8 pg (26.0-34.0); Mean Corpuscular HGB Conc 30.9 g/dL (31.5-36.5); Mean Corpuscular Volume 90 fL (80-100); Mean Platelet Volume 9.7 fL (9.1-12.4); Nitrite, Urine Neg (Neg); Platelet Count 196 K/mm3 (150-400); Protein, Urine 3+ (Neg); RDW Coefficient Variation 16.9 % (11.7-14.2); Red Blood Cell Count 4.32 M/mm3 (3.80-5.20); Urobilinogen, Urine NORM (Normal); White Blood Cell Count 11.55 K/mm3 (4.00-11.30)
[2019-09-13 13:05] LABS: Color, Urine Yellow (P-Yellow)
[2019-09-13 13:06] LABS: Appearance, Urine Cloudy (Clear); White Blood Cells, Urine TNTC /hpf (0-5)
[2019-09-13 13:07] LABS: Bacteria Many /hpf; Squamous Epithelial Cells Rare /hpf (Few); Yeast/Fungi Urine Many /hpf
[2019-09-13 13:12] LABS: BAND PERCENT MAN 10 % (0-8); BASOPHILS PERCENT MAN 0 % (0-2); EOSINOPHILS ABSOLUTE MAN 0.23 K/mm3 (0.00-0.68); EOSINOPHILS PERCENT MAN 2 % (0-6); LYMPHOCYTES PERCENT MAN 7 % (21-46); MONOCYTES PERCENT MAN 7 % (4-13); SEG NEUTROPHILS PERCENT MAN 74 % (41-73); TOTAL CELLS COUNTED 100
[2019-09-13 13:15] LABS: Albumin, Blood 2.6 g/dL (3.4-5.0); Albumin/Globulin Ratio 0.7 (0.8-1.8); Bilirubin, Total 0.4 mg/dL (0.1-1.0); Calcium, Blood 9.9 mg/dL (8.5-10.1); Creatinine, Blood 1.37 mg/dL (0.40-1.00); Globulin, Blood 3.7 g/dL (2.2-4.0); Magnesium, Blood 1.8 mg/dL (1.6-2.4); Potassium, Blood 4.3 mmol/L (3.5-5.5); Total Protein, Blood 6.3 g/dL (6.4-8.2)
--- NOTE | 2019-09-14 01:00 | NUR ---
REPORT GIVEN TO SALTY JACKSON RN TO ASSUME CARE OF PT AT THIS TIME. PT RESTING IN BED COMFORTABLY WITH NO S/S OF DISTRESS AT THIS TIME.
--- NOTE | 2019-09-14 02:01 | NUR ---
Assumed care of patient DOMINIQUE Elam at 0130. Patient currently resting comfortably in bed. No complaints of pain or discomfort. will continue monitoring
[2019-09-14 04:54] LABS: BASOPHILS ABSOLUTE AUTO 0.03 K/mm3 (0.00-0.23); BASOPHILS PERCENT AUTO 0 % (0-2); Hematocrit 32.7 % (33.0-51.0); Hemoglobin 10.1 g/dL (11.5-16.0); LYMPHOCYTES ABSOLUTE AUTO 1.05 K/mm3 (0.84-5.20); LYMPHOCYTES PERCENT AUTO 8 % (21-46); MONOCYTES ABSOLUTE AUTO 0.82 K/mm3 (0.16-1.47); MONOCYTES PERCENT AUTO 6 % (4-13); Mean Corpuscular HGB 27.6 pg (26.0-34.0); Mean Corpuscular HGB Conc 30.9 g/dL (31.5-36.5); Mean Corpuscular Volume 89 fL (80-100); Mean Platelet Volume 10.1 fL (9.1-12.4); Platelet Count 159 K/mm3 (150-400); RDW Coefficient Variation 17.3 % (11.7-14.2); RDW Standard Deviation 55.3 fL (35.1-46.3); Red Blood Cell Count 3.66 M/mm3 (3.80-5.20); White Blood Cell Count 13.45 K/mm3 (4.00-11.30)
[2019-09-14 05:01] LABS: EOSINOPHILS ABSOLUTE AUTO 0.23 K/mm3 (0.00-0.68); EOSINOPHILS PERCENT AUTO 2 % (0-6); IMMATURE GRAN ABSOLUTE AUTO 0.11 K/mm3 (0.00-0.10); IMMATURE GRAN PERCENT AUTO 1 % (0-1); NEUTROPHILS ABSOLUTE AUTO 11.21 K/mm3 (1.96-9.15); NEUTROPHILS PERCENT AUTO 83 % (41-73)
--- NOTE | 2019-09-14 05:04 | NUR ---
SACK LIFTER SUMMARY Patient slept well throughout the shift into the morning. No complaints of pain throughout shift since assuming care at 0130. Tolerating multiple IV antibiotics without difficulty.
[2019-09-14 06:13] LABS: Albumin, Blood 2.2 g/dL (3.4-5.0); Albumin/Globulin Ratio 0.6 (0.8-1.8); Bilirubin, Total 0.6 mg/dL (0.1-1.0); Bun/Creatinine Ratio 18.2 (12.0-20.0); Calcium, Blood 9.1 mg/dL (8.5-10.1); Creatinine, Blood 1.7 mg/dL (0.40-1.00); Globulin, Blood 3.4 g/dL (2.2-4.0); Potassium, Blood 4.6 mmol/L (3.5-5.5); Total Protein, Blood 5.6 g/dL (6.4-8.2)
[2019-09-14 15:54] LABS: Vancomycin, Trough 11.6 ug/mL (5.0-10.0)
--- NOTE | 2019-09-14 17:14 | NUR ---
PATIENT A/OX4, UP WITH FWW, GB AND 2 ASSIST TO BSC TODAY. CHRONIC GILLETET TO GRAVITY. VANCO AND ZOSYN TO TREAT PNA. 2LO2 TO MAINTAIN SATS. FALL PRECAUTIONS PER UNIT PROTOCOL TRAMADOL GIVEN X1 TODAY TO TREAT BACK PAIN. PATIENT SLEPT MOST OF THE DAY. WAKES EASILY, BUT QUICKLY BACK TO SLEEP. TOLERATING ADA DIET, ACHS BLOOD SUGARS, NO COVERAGE NEED THIS SHIFT. 18G TO R AC WNL, NS @ 100ML/HR INFUSING. CALM AND COOPERATUVE WITH CARE, CALLS APPROPRIATELY FOR ASSISTANCE.
--- NOTE | 2019-09-15 03:39 | NUR ---
SHIFT SUMMARY NO CHANGES TO REPORT THIS SHIFT. PT APPEARS TO HAVE SLEPT MOST OF THE NIGHT. MEDICATED FOR PAIN PRN PER EMAR. SHE HAS NOT REPORTED ANY OTHER NEEDS WHEN ASKED. IV FLUIDS AND ANTIBIOTICS CONTINUED PER ORDERS. ASSESSMENT UNCHANGED. BED IN LOWEST POSITION, CALL LIGHT WITHIN REACH.
[2019-09-15 05:38] LABS: BASOPHILS ABSOLUTE AUTO 0.03 K/mm3 (0.00-0.23); BASOPHILS PERCENT AUTO 0 % (0-2); EOSINOPHILS ABSOLUTE AUTO 0.45 K/mm3 (0.00-0.68); EOSINOPHILS PERCENT AUTO 4 % (0-6); Hematocrit 30.7 % (33.0-51.0); Hemoglobin 9.5 g/dL (11.5-16.0); IMMATURE GRAN ABSOLUTE AUTO 0.07 K/mm3 (0.00-0.10); IMMATURE GRAN PERCENT AUTO 1 % (0-1); LYMPHOCYTES ABSOLUTE AUTO 1.12 K/mm3 (0.84-5.20); LYMPHOCYTES PERCENT AUTO 10 % (21-46); MONOCYTES ABSOLUTE AUTO 0.62 K/mm3 (0.16-1.47); MONOCYTES PERCENT AUTO 6 % (4-13); Mean Corpuscular HGB 27.9 pg (26.0-34.0); Mean Corpuscular HGB Conc 30.9 g/dL (31.5-36.5); Mean Corpuscular Volume 90 fL (80-100); Mean Platelet Volume 10.3 fL (9.1-12.4); NEUTROPHILS ABSOLUTE AUTO 8.47 K/mm3 (1.96-9.15); NEUTROPHILS PERCENT AUTO 79 % (41-73); Platelet Count 153 K/mm3 (150-400); RDW Coefficient Variation 17.2 % (11.7-14.2); RDW Standard Deviation 55.7 fL (35.1-46.3); White Blood Cell Count 10.76 K/mm3 (4.00-11.30)
[2019-09-15 06:06] LABS: Bun/Creatinine Ratio 16.6 (12.0-20.0); Calcium, Blood 9.1 mg/dL (8.5-10.1); Creatinine, Blood 1.69 mg/dL (0.40-1.00)
[2019-09-15 15:29] LABS: Vancomycin, Trough 16.6 ug/mL (5.0-10.0)
--- NOTE | 2019-09-15 19:33 | NUR ---
SHIFT SUMMARY: NO ACUTE CHANGES TO REPORT THIS SHIFT PT HX DMENETIA; A&O X2-3; CALM AND COOPERATIVE WITH CARE. MEDICATED FOR NECK & DEWITT PAIN PER EMAR. CHRONIC IGLLETTE IN PLACE; PATENT AND DRAINING. PT & OT EVALS THIS SHIFT. IV ABX & REHYDRATION CONTINUING. REPROT GIVEN TO ONCOMING RN.
--- NOTE | 2019-09-16 04:52 | NUR ---
09/16/19 0450 PALLIATIVE CARE CONSULT PHONED INTO [employer].
[2019-09-16 05:39] LABS: BASOPHILS ABSOLUTE AUTO 0.02 K/mm3 (0.00-0.23); BASOPHILS PERCENT AUTO 0 % (0-2); EOSINOPHILS ABSOLUTE AUTO 0.42 K/mm3 (0.00-0.68); EOSINOPHILS PERCENT AUTO 5 % (0-6); Hematocrit 34.2 % (33.0-51.0); Hemoglobin 10.6 g/dL (11.5-16.0); IMMATURE GRAN ABSOLUTE AUTO 0.04 K/mm3 (0.00-0.10); IMMATURE GRAN PERCENT AUTO 1 % (0-1); LYMPHOCYTES ABSOLUTE AUTO 1.33 K/mm3 (0.84-5.20); LYMPHOCYTES PERCENT AUTO 16 % (21-46); MONOCYTES ABSOLUTE AUTO 0.58 K/mm3 (0.16-1.47); MONOCYTES PERCENT AUTO 7 % (4-13); Mean Corpuscular HGB 27.7 pg (26.0-34.0); Mean Corpuscular Volume 90 fL (80-100); Mean Platelet Volume 10.6 fL (9.1-12.4); NEUTROPHILS ABSOLUTE AUTO 5.83 K/mm3 (1.96-9.15); NEUTROPHILS PERCENT AUTO 71 % (41-73); Platelet Count 125 K/mm3 (150-400); RDW Coefficient Variation 16.9 % (11.7-14.2); RDW Standard Deviation 54.5 fL (35.1-46.3); Red Blood Cell Count 3.82 M/mm3 (3.80-5.20); White Blood Cell Count 8.22 K/mm3 (4.00-11.30)
--- NOTE | 2019-09-16 05:42 | NUR ---
09/16/19 0535 REPOSITIONED IN BED. DENIES ANY COMPLAINTS AT THIS TIME. VITALS,HEART MONITOR AND BLOOD SUGAR STABLE. GILLETTE CATH. PATENT AND DRAING CLEAR ,YELLOW URINE. MEDICATED ONCE FOR SEVERE HEADACHE AND THEN SLEPT WELL.
[2019-09-16 06:00] LABS: Bun/Creatinine Ratio 14.9 (12.0-20.0); Creatinine, Blood 1.74 mg/dL (0.40-1.00); Potassium, Blood 4.6 mmol/L (3.5-5.5)
--- NOTE | 2019-09-16 12:11 | NUR ---
Spiritual care visit conducted. Patient is sitting in a chair and alert. Patient does not remember leaving the hospital and then being readmitted. Patient shares about her desire to become strong enough to go home soon. Patient lives alone and she tells me that she has too much fatigue right now to make it at home. Patient talks about her family and the lives that they live and how she misses seeing them. I listen empathically, explore spiritual beliefs and provide prayer and companionship. I will continue to talk with patient about her health goals and realistic expectations. Patient responds well and shows signs of an elevated mood.
--- NOTE | 2019-09-16 13:03 | NUR ---
PAL CARE INITIAL VISIT AND SECOND CONVERSATION WITH CYDNEY ELIAS Initial pal care visit made to Vania in her room. Pt is dosing and appears uncomfortable, sitting up in bed. Case conferenced with RN prior to my visit. Pt had c/o headache and he was on his way to get RX per eMAR for her. Pt woke easily to touch on her arm. She greeted my like an old lost friend, very pleasant and happy to see me even though we have never met before. She states her right thigh also hurts. I let her know that RN had gone to get some pain medication for her. RN reports that tylenol and tramadol have been working well for pt's pain/relief. Pt is sl dyspnic with conversation at rest. When lunch tray arrived she was agreeable to eating and thought it looked very appetizing. Joan called while I was in the room and I updated her on my assessment, plan for d/c home tomorrow per their wishes for home care and discussed hospice further. Joan states they are not in denial but want to wait for hospice services. They state they plan to come to pt's home in mid October. I recommended hiring additional help for 24 hour care and I recommended reconsidering allowing pt to have hospice support for her and her caregivers. Joan states Dr told family when pt was here last that if she was placed on hospice, "she would be given morphine and that would make pt faster". I educated joan on when and why stronger medications would be used, severe, unrelieved pain or air hunger and also that currently Tramadol and tylenol were being used for pt's discomfort with good results. Pt has hx of severe aortic stenosis, pneumonia (poss aspiration), and COPD. She may experience air hunger as her end stage chronic illnesses progress but that is not the case on my assessment today. She is dyspnic but not in distress today. All of above and d/c plan of family choice relayed to HH liaison and EF care partner after my visit and ph call with CURT.
--- NOTE | 2019-09-16 14:12 | NUR ---
POLST LOCATED IN EMR, signed by pt in 2013, states DNR, Comfort measures only. Printed copy and placed it on chart. EFM informed of previously completed POLST on file. No POA for healthcare documentation found. DIL states they have provided it previously.
--- NOTE | 2019-09-16 19:16 | NUR ---
SHIFT SUMMARY: NO ACUTE CHANGES TO REPORT THIS SHIFT. PT HX DEMENTIA; A&O X2-3; CALM AND COOPERATIVE WITH CARE. MEDICATED FOR HEADACHE PAIN PER EMAR. CHRONIC GILLETTE IN PLACE; PATENT AND DRAINING. ECPECTED D/C HOME WITH HOME HEALTH 09/16. IV REHYDRATION & ABX CONTINUING. REPORT GIVEN TO ONCOMING DOMINIQUE.
--- NOTE | 2019-09-17 04:05 | NUR ---
09/17/19 0405 ROUNDS MADE BY LATHE TURNER. LATHE TURNER NOTED THAT PT'S GILLETTE CATHETER WAS LEAKING AND INFORMED RN. RN WILL CHANGE GILLETTE CATHETER.
--- NOTE | 2019-09-17 04:47 | NUR ---
09/17/19 0430 #16 F GILLETTE CATHETER INSERTED WITHOUT ISSUES DUE TO PREVIOUS ONE LEAKING. SECURED WITH STAT-LOCK TO RT. THIGH. VITALS STABLE AND MEDICATED FOR BACK PAIN PER MAR. PT PLANNING TO GO BACK TO SLEEP.
[2019-09-17 05:49] LABS: BASOPHILS ABSOLUTE AUTO 0.04 K/mm3 (0.00-0.23); BASOPHILS PERCENT AUTO 1 % (0-2); EOSINOPHILS ABSOLUTE AUTO 0.36 K/mm3 (0.00-0.68); EOSINOPHILS PERCENT AUTO 5 % (0-6); Hematocrit 33.2 % (33.0-51.0); Hemoglobin 10.1 g/dL (11.5-16.0); IMMATURE GRAN ABSOLUTE AUTO 0.03 K/mm3 (0.00-0.10); IMMATURE GRAN PERCENT AUTO 0 % (0-1); LYMPHOCYTES ABSOLUTE AUTO 1.14 K/mm3 (0.84-5.20); LYMPHOCYTES PERCENT AUTO 17 % (21-46); MONOCYTES ABSOLUTE AUTO 0.62 K/mm3 (0.16-1.47); MONOCYTES PERCENT AUTO 9 % (4-13); Mean Corpuscular HGB 27.4 pg (26.0-34.0); Mean Corpuscular HGB Conc 30.4 g/dL (31.5-36.5); Mean Corpuscular Volume 90 fL (80-100); Mean Platelet Volume 9.6 fL (9.1-12.4); NEUTROPHILS ABSOLUTE AUTO 4.71 K/mm3 (1.96-9.15); NEUTROPHILS PERCENT AUTO 68 % (41-73); Platelet Count 163 K/mm3 (150-400); RDW Coefficient Variation 16.4 % (11.7-14.2); RDW Standard Deviation 53.8 fL (35.1-46.3); Red Blood Cell Count 3.69 M/mm3 (3.80-5.20)
[2019-09-17 06:12] LABS: Bun/Creatinine Ratio 11.6 (12.0-20.0); Calcium, Blood 9.7 mg/dL (8.5-10.1); Creatinine, Blood 1.73 mg/dL (0.40-1.00); Potassium, Blood 4.1 mmol/L (3.5-5.5)
--- NOTE | 2019-09-17 11:03 | NUR ---
Case conferenced with nursing, care management and EFM Comm Care Coord re: plan and request to call DIL when d/c timeframe, transport time known. I stopped in to see pt. She was sound asleep and did not wake to voice or touch. She appears comfortable in her sleep without nonverbal indicators of pain, anxiety, dyspnea, distress or agitation noted. D/C home with cg anticipated today but no orders written this am yet.
--- NOTE | 2019-09-17 13:23 | NUR ---
SHE IS SITTING UP IN THE CHAIR AFTER WORKING WITH PT. SHE WAS JUST CGA FOR AMBULATION TO THE DOOR AND BACK TWICE. PT WILL INCREASE HER TO BID TOMORROW, HOPING TO BE ABLE TO CHANGE HER RECOMMENDATION. HER D.I.L. CYDNEY CALLED THIS AM AND SEEMS ADAMENT ABOUT RAVI ONLY DISCHARGING HOME. SHE DOES NOT WANT HER TO GO TO REHAB. CBG'S STABLE. O2 2L. CHRONIC GILLETTE PATENT. NO LEAKING. IT WAS INSERTED EARLY THIS MORNING ON ROLL FORMING MACHINE OPERATOR D/T PREVIOUS CATHETER LEAKING. RAVI HAS POOR MEMORY AND POOR EYESIGHT. SHE IS VERY PLEASANT AND ONLY C/O L HIP PAIN WHEN ASKED ABOUT IT. SHE SAID THE TRAMADOL HELPED "A LITTLE".
--- NOTE | 2019-09-17 15:32 | NUR ---
SHE WORKED WITH PT EARLIER AND NOW SHE IS WORKING WITH OT. SHE HAD A NAP IN BETWEEN.
--- NOTE | 2019-09-17 18:09 | NUR ---
NO CHANGES. EATING DINNER. NAIN PATENT. HAD A BM TODAY. RECEIVED TRAMADOL X1 AND TYLENOL X1 FOR HER CHRONIC ACHES AND PAINS.
--- NOTE | 2019-09-18 04:37 | NUR ---
SHIFT SUMMARY PT PLEASANT AND COOPERATIVE. VERY FORGETFUL. PT DID NOT SLEEP WELL THIS EVENING. AWAKE MUCH OF THE NIGHT. CHRONIC GILLETTE CATHETER IN PLACE. DRAINING LIGHT YELLOW URINE. PT MEDICATED X 1 W/ ULTRAM FOR CHRONIC BACK PAIN AND X 1 WITH 650 MG TYLENOL. PT ON 2 L O2 VIA NC. TELEMETRY READING SR W/ PAC'S AT 75. VITAL SIGNS STABLE. NO ACUTE CHANGES THIS SHIFT. WILL CONTINUE TO MONITOR.
[2019-09-18] MEDS ORDERED: AMOCLA500 PO (14:50)
--- NOTE | 2019-09-18 16:06 | NUR ---
SHE FELT VERY TIRED THIS MORNING. IT WAS REPORTED THAT SHE DID NOT SLEEP MUCH LAST NIGHT. SHE ATE BREAKFAST WELL. SHE SAT UP IN THE CHAIR FOR LUNCH AFTER WORKING WITH PT BUT WASN'T HUNGRY. SHE ALSO C/O PAIN IN HER ANTERIOR RT THIGH. NO REDNESS, SWELLING OR HARD AREA. TRAMADOL GIVEN. IT HELPED A LITTLE. SHE THEN SHOWERED WITH ASSIST AND TOOK A NAP WHERE SHE WAS SLEEPING DEEPLY. IT WAS HARD TO WAKE HER UP TO GET READY TO GO. DISCHARGED AT 1605 BY W/C VANGIE TO HOME. I SPOKE WITH ANGELINA HER CAREGIVER. SHE WILL MEET HER AT THE HOUSE. SHE ALSO KNOWS TO WRAPPER HAND THE RX AT [facility] IN .. I LEFT A MSG ON HER D.I.L.'S HOME PHONE ABOUT ALL THIS. SHE WAS WEAK AND TIRED ON DC. SHE KNOWS IT IS RECOMMENDED TO HAVE A CAREGIVER AT NIGHT AT HOME ALSO. GILLETTE CATHETER IN PLACE.
== END 2019-09-18 16:05 | disposition home health service (06) | DRG 698 ==
LOC: ER 11:17 → MEDS 13:38 → ENPENDDIS 09-18 14:14 → MEDS 09-18 16:05
PROVIDERS: Emergency Medicine; ADMIT Family Medicine
DX: T83.518A Infection and inflammatory reaction due to other urinary catheter, initial encounter (principal); J18.9 Pneumonia, unspecified organism; J96.21 Acute and chronic respiratory failure with hypoxia; J44.0 Chronic obstructive pulmonary disease with (acute) lower respiratory infection; N17.9 Acute kidney failure, unspecified; Z20.828 Contact with and (suspected) exposure to other viral communicable diseases; E11.42 Type 2 diabetes mellitus with diabetic polyneuropathy; E78.5 Hyperlipidemia, unspecified; F03.90 Unspecified dementia, unspecified severity, without behavioral disturbance, psychotic disturbance, mood disturbance, and anxiety; F32.9 Major depressive disorder, single episode, unspecified; I35.0 Nonrheumatic aortic (valve) stenosis; I73.9 Peripheral vascular disease, unspecified; I12.9 Hypertensive chronic kidney disease with stage 1 through stage 4 chronic kidney disease, or unspecified chronic kidney disease; E11.22 Type 2 diabetes mellitus with diabetic chronic kidney disease; N18.3 Chronic kidney disease, stage 3 (moderate); Z99.81 Dependence on supplemental oxygen; B96.20 Unspecified Escherichia coli [E. coli] as the cause of diseases classified elsewhere; R62.7 Adult failure to thrive; K21.9 Gastro-esophageal reflux disease without esophagitis; G47.33 Obstructive sleep apnea (adult) (pediatric)
CPT/HCPCS: 36415; 36600; 51702; 71045; 80048; 80053; 80202; 81001; 82803; 82947; 83605; 83735; 85025; 87040; 87077; 87086; 87186; 93005; 93010; 94640; 94664; 94667; 94760; 96365-59; 96375-59; 97110; 97112; 97116; 97162; 97166; 97530; 97535; 98960; 99285-25; A9270; A9270-GY; J0456; J0696; J1644; J2543; J3370; J7030; J7050; U0002

== ENCOUNTER → 2019-10-09 | Outpatient (CLI) | payer OTHER ==
[~2019-10-09] MED LIST changes: +AMOCLA500 PO
[2019-10-09 16:55] LABS: Source, Urine Catheter
[2019-10-09 18:24] LABS: Appearance, Urine Hazy (Clear); Bilirubin, Urine Neg (Neg); Blood, Urine 3+ (Neg); Color, Urine Yellow (P-Yellow); Glucose Qualitative, Urine Neg (Neg); Ketones, Urine Neg (Neg); Leukocyte Esterase, Urine 3+ (Neg); Nitrite, Urine Neg (Neg); Protein, Urine 3+ (Neg); Urobilinogen, Urine NORM (Normal)
[2019-10-09 18:44] LABS: Bacteria Many /hpf; Red Blood Cells, Urine 0-2 /hpf (0-2); Squamous Epithelial Cells Rare /hpf (Few); White Blood Cells, Urine TNTC /hpf (0-5)
== END | disposition home or self-care (01) ==
LOC: LAB HH 16:52
PROVIDERS: Nurse Practitioner Family
DX: N39.0 Urinary tract infection, site not specified (principal); Z46.6 Encounter for fitting and adjustment of urinary device
CPT/HCPCS: 81001; 87077; 87086; 87186

== ENCOUNTER → 2019-10-30 | Outpatient (CLI) | payer OTHER ==
[2019-10-30 19:29] LABS: Creatinine Urine 26.8 mg/dL (27.00-270.00); Protein, Urine Quantitative 75.5 mg/dL (0.0-11.9)
== END | disposition home or self-care (01) ==
LOC: LAB HH 17:56 → LAB SHORT 17:56 → LAB FUT 12-03 14:20
PROVIDERS: Internal Medicine Nephrology
DX: N18.3 Chronic kidney disease, stage 3 (moderate) (principal); E55.9 Vitamin D deficiency, unspecified; R80.9 Proteinuria, unspecified; R76.9 Abnormal immunological finding in serum, unspecified; R94.6 Abnormal results of thyroid function studies; R94.5 Abnormal results of liver function studies; D50.9 Iron deficiency anemia, unspecified
CPT/HCPCS: 81050; 82043; 82570; 84156

== ENCOUNTER 2019-11-04 17:12 | Emergency (ER) | payer OTHER ==
[~2019-11-04] VITALS: Ht 167.6 cm; Wt 67.6 kg
[2019-11-04] MEDS ORDERED: IRON18 MG PO (18:55)
[2019-11-04] MEDS ORDERED: AZO CRANBERRY PO (18:58)
[2019-11-04] MEDS ORDERED: ASCO500 PO (18:58)
[2019-11-04] MEDS ORDERED: ACET325 PO (18:58)
[2019-11-04] MEDS ORDERED: TRELEGY ELLIPT1 EACH INH (18:59)
[2019-11-04 19:26] LABS: BASOPHILS ABSOLUTE AUTO 0.02 K/mm3 (0.00-0.23); BASOPHILS PERCENT AUTO 0 % (0-2); EOSINOPHILS ABSOLUTE AUTO 0.09 K/mm3 (0.00-0.68); EOSINOPHILS PERCENT AUTO 1 % (0-6); Hematocrit 33.4 % (33.0-51.0); Hemoglobin 10.5 g/dL (11.5-16.0); IMMATURE GRAN ABSOLUTE AUTO 0.01 K/mm3 (0.00-0.10); IMMATURE GRAN PERCENT AUTO 0 % (0-1); LYMPHOCYTES ABSOLUTE AUTO 1.44 K/mm3 (0.84-5.20); LYMPHOCYTES PERCENT AUTO 22 % (21-46); MONOCYTES ABSOLUTE AUTO 0.79 K/mm3 (0.16-1.47); MONOCYTES PERCENT AUTO 12 % (4-13); Mean Corpuscular HGB 27.4 pg (26.0-34.0); Mean Corpuscular HGB Conc 31.4 g/dL (31.5-36.5); Mean Corpuscular Volume 87 fL (80-100); Mean Platelet Volume 9.3 fL (9.1-12.4); NEUTROPHILS PERCENT AUTO 64 % (41-73); Platelet Count 158 K/mm3 (150-400); RDW Coefficient Variation 17.2 % (11.7-14.2); Red Blood Cell Count 3.83 M/mm3 (3.80-5.20); White Blood Cell Count 6.55 K/mm3 (4.00-11.30)
[2019-11-04 20:01] LABS: Bun/Creatinine Ratio 25.8 (12.0-20.0); Calcium, Blood 9.3 mg/dL (8.5-10.1); Creatinine, Blood 1.32 mg/dL (0.40-1.00); Potassium, Blood 3.9 mmol/L (3.5-5.5)
== END 2019-11-04 20:40 | disposition home or self-care (01) ==
LOC: ER 17:12
PROVIDERS: Emergency Medicine
DX: N39.9 Disorder of urinary system, unspecified (principal); Z96.0 Presence of urogenital implants; I13.0 Hypertensive heart and chronic kidney disease with heart failure and stage 1 through stage 4 chronic kidney disease, or unspecified chronic kidney disease; I50.9 Heart failure, unspecified; E11.22 Type 2 diabetes mellitus with diabetic chronic kidney disease; E11.42 Type 2 diabetes mellitus with diabetic polyneuropathy; N18.3 Chronic kidney disease, stage 3 (moderate); J44.9 Chronic obstructive pulmonary disease, unspecified; F03.90 Unspecified dementia, unspecified severity, without behavioral disturbance, psychotic disturbance, mood disturbance, and anxiety; E11.40 Type 2 diabetes mellitus with diabetic neuropathy, unspecified; K21.9 Gastro-esophageal reflux disease without esophagitis; F32.9 Major depressive disorder, single episode, unspecified; E78.5 Hyperlipidemia, unspecified; E11.49 Type 2 diabetes mellitus with other diabetic neurological complication; E11.319 Type 2 diabetes mellitus with unspecified diabetic retinopathy without macular edema; Z87.891 Personal history of nicotine dependence; Z88.6 Allergy status to analgesic agent; Z88.5 Allergy status to narcotic agent; Z79.02 Long term (current) use of antithrombotics/antiplatelets; Z79.899 Other long term (current) drug therapy
CPT/HCPCS: 36415; 80048; 85025; 99283

== ENCOUNTER → 2019-11-20 | Outpatient (CLI) | payer OTHER ==
[~2019-11-20] MED LIST changes: +AZO CRANBERRY PO; +IRON18 MG PO; +TRELEGY ELLIPT1 EACH INH
[2019-11-20 19:56] LABS: Bilirubin, Urine Neg (Neg); Blood, Urine 2+ (Neg); Glucose Qualitative, Urine Neg (Neg); Ketones, Urine Neg (Neg); Leukocyte Esterase, Urine 1+ (Neg); Nitrite, Urine Neg (Neg); Protein, Urine 3+ (Neg); Urobilinogen, Urine NORM (Normal)
[2019-11-20 20:16] LABS: Appearance, Urine Clear (Clear); Color, Urine Yellow (P-Yellow)
[2019-11-20 20:17] LABS: Amorphous Mod (0-Heavy); Bacteria Rare /hpf; Red Blood Cells, Urine Rare /hpf (0-2); Squamous Epithelial Cells Not Seen /hpf (Few)
== END | disposition home or self-care (01) ==
LOC: LAB 17:44 → LAB SHORT 17:44
PROVIDERS: Internal Medicine Nephrology
DX: N18.30 Chronic kidney disease, stage 3 unspecified (principal); D63.1 Anemia in chronic kidney disease; R82.79 Other abnormal findings on microbiological examination of urine
CPT/HCPCS: 81001; 87077; 87086; 87186

== ENCOUNTER 2019-11-26 00:44 | Day surgery (SDC) | payer OTHER ==
--- NOTE | 2019-11-26 15:38 | NUR ---
IV INFILTRATED, NOTED WHEN IV INFUSION WAS COMPLETE. SWELLING AT SITE NOTED. PT HAD NO C/O PAIN. PT HAD SWEATSHIRT ON, THE SLEEVE WAS PUSHED UP AND TIGHT RIGHT ABOVE THE IV, POSSIBLY CAUSING THE INFILTRATION.
== END 2019-11-26 15:30 | disposition home or self-care (01) ==
LOC: ATC 00:44
DX: N39.0 Urinary tract infection, site not specified (principal); I12.9 Hypertensive chronic kidney disease with stage 1 through stage 4 chronic kidney disease, or unspecified chronic kidney disease; E11.22 Type 2 diabetes mellitus with diabetic chronic kidney disease; N18.30 Chronic kidney disease, stage 3 unspecified; D63.1 Anemia in chronic kidney disease; E78.00 Pure hypercholesterolemia, unspecified; E55.9 Vitamin D deficiency, unspecified; N20.0 Calculus of kidney; M81.0 Age-related osteoporosis without current pathological fracture; Z88.2 Allergy status to sulfonamides; Z79.899 Other long term (current) drug therapy; Z79.02 Long term (current) use of antithrombotics/antiplatelets
CPT/HCPCS: 96365; J2185

== ENCOUNTER 2019-11-27 00:11 | Day surgery (SDC) | payer OTHER | END 2019-11-27 15:30 | disposition home or self-care (01) | LOC: ATC 00:11 | DX: N39.0 Urinary tract infection, site not specified (principal); I12.9 Hypertensive chronic kidney disease with stage 1 through stage 4 chronic kidney disease, or unspecified chronic kidney disease; E11.22 Type 2 diabetes mellitus with diabetic chronic kidney disease; N18.30 Chronic kidney disease, stage 3 unspecified; D63.1 Anemia in chronic kidney disease; E78.00 Pure hypercholesterolemia, unspecified; E55.9 Vitamin D deficiency, unspecified; N20.0 Calculus of kidney; M81.0 Age-related osteoporosis without current pathological fracture; Z88.2 Allergy status to sulfonamides; Z79.02 Long term (current) use of antithrombotics/antiplatelets | CPT/HCPCS: 96365; J2185 ==

== ENCOUNTER 2019-11-28 01:53 | Day surgery (SDC) | payer OTHER | END 2019-11-28 15:15 | disposition home or self-care (01) | LOC: ATC 01:53 | DX: N39.0 Urinary tract infection, site not specified (principal); B96.5 Pseudomonas (aeruginosa) (mallei) (pseudomallei) as the cause of diseases classified elsewhere; E11.22 Type 2 diabetes mellitus with diabetic chronic kidney disease; I12.9 Hypertensive chronic kidney disease with stage 1 through stage 4 chronic kidney disease, or unspecified chronic kidney disease; N18.30 Chronic kidney disease, stage 3 unspecified; D63.1 Anemia in chronic kidney disease; E78.00 Pure hypercholesterolemia, unspecified; E55.9 Vitamin D deficiency, unspecified; N20.0 Calculus of kidney; M81.0 Age-related osteoporosis without current pathological fracture; I71.4 Abdominal aortic aneurysm, without rupture; Z88.2 Allergy status to sulfonamides; Z79.899 Other long term (current) drug therapy; Z79.02 Long term (current) use of antithrombotics/antiplatelets | CPT/HCPCS: 96365; J2185 ==

== ENCOUNTER 2019-11-29 00:06 | Day surgery (SDC) | payer OTHER | END 2019-11-29 14:03 | disposition home or self-care (01) | LOC: ATC 00:06 | DX: N39.0 Urinary tract infection, site not specified (principal); I12.9 Hypertensive chronic kidney disease with stage 1 through stage 4 chronic kidney disease, or unspecified chronic kidney disease; E11.22 Type 2 diabetes mellitus with diabetic chronic kidney disease; N18.30 Chronic kidney disease, stage 3 unspecified; D63.1 Anemia in chronic kidney disease; N25.81 Secondary hyperparathyroidism of renal origin; E55.9 Vitamin D deficiency, unspecified; E11.21 Type 2 diabetes mellitus with diabetic nephropathy; D50.9 Iron deficiency anemia, unspecified; E78.00 Pure hypercholesterolemia, unspecified; E86.9 Volume depletion, unspecified; M81.0 Age-related osteoporosis without current pathological fracture; Z79.2 Long term (current) use of antibiotics; Z79.52 Long term (current) use of systemic steroids; Z79.02 Long term (current) use of antithrombotics/antiplatelets; Z79.51 Long term (current) use of inhaled steroids; Z79.899 Other long term (current) drug therapy; Z88.2 Allergy status to sulfonamides; Z88.5 Allergy status to narcotic agent; Z88.6 Allergy status to analgesic agent; Z88.8 Allergy status to other drugs, medicaments and biological substances | CPT/HCPCS: 96365; J2185 ==

== ENCOUNTER 2019-11-30 00:12 | Day surgery (SDC) | payer OTHER | END 2019-11-30 14:15 | disposition home or self-care (01) | LOC: ATC 00:12 | DX: N39.0 Urinary tract infection, site not specified (principal); I12.9 Hypertensive chronic kidney disease with stage 1 through stage 4 chronic kidney disease, or unspecified chronic kidney disease; E11.22 Type 2 diabetes mellitus with diabetic chronic kidney disease; N18.30 Chronic kidney disease, stage 3 unspecified; D63.1 Anemia in chronic kidney disease; E78.00 Pure hypercholesterolemia, unspecified; E55.9 Vitamin D deficiency, unspecified; N20.0 Calculus of kidney; Z88.2 Allergy status to sulfonamides; Z79.899 Other long term (current) drug therapy; M81.0 Age-related osteoporosis without current pathological fracture; Z79.02 Long term (current) use of antithrombotics/antiplatelets | CPT/HCPCS: 96365; J2185 ==

== ENCOUNTER → 2020-02-04 | Outpatient (CLI) | payer OTHER | END | disposition home or self-care (01) | LOC: LAB HH 11:55 → LAB SHORT 11:55 | DX: F03.90 Unspecified dementia, unspecified severity, without behavioral disturbance, psychotic disturbance, mood disturbance, and anxiety (principal) | CPT/HCPCS: 86780 ==

== ENCOUNTER → 2020-02-19 | Outpatient (CLI) | payer OTHER ==
[2020-02-19 13:11] LABS: Source, Urine Catheter
[2020-02-19 15:20] LABS: Appearance, Urine Hazy (Clear); Bilirubin, Urine Neg (Neg); Blood, Urine 3+ (Neg); Color, Urine Yellow (P-Yellow); Glucose Qualitative, Urine Neg (Neg); Ketones, Urine Neg (Neg); Leukocyte Esterase, Urine 3+ (Neg); Nitrite, Urine Neg (Neg); Protein, Urine 3+ (Neg); Urobilinogen, Urine NORM (Normal)
[2020-02-19 15:39] LABS: Bacteria Many /hpf; Red Blood Cells, Urine 0-2 /hpf (0-2); Squamous Epithelial Cells Not Seen /hpf (Few)
== END ==
LOC: LAB HH 13:09 → LAB FUT 02-17 16:10
PROVIDERS: Urology
DX: Z46.6 Encounter for fitting and adjustment of urinary device (principal); N39.0 Urinary tract infection, site not specified; R33.9 Retention of urine, unspecified
CPT/HCPCS: 81001

== ENCOUNTER 2020-02-25 08:00 | Day surgery (SDC) | payer OTHER ==
[~2020-02-25] VITALS: Ht 167.6 cm; Wt 67.3 kg
[~2020-02-25 08:00] MED LIST changes: +MIRALAX17 GM PO
[2020-02-25] MEDS ORDERED: FURO20 PO (16:03)
[2020-02-25] MEDS ORDERED: POTA10T PO (16:04)
[2020-02-25] MEDS ORDERED: LEVFLO500 PO (16:04)
[2020-02-25] MEDS ORDERED: ZINC15 PO (16:04)
== END 2020-02-25 23:45 | disposition home or self-care (01) ==
LOC: ATC 08:00
DX: N39.0 Urinary tract infection, site not specified (principal); J44.9 Chronic obstructive pulmonary disease, unspecified; I12.9 Hypertensive chronic kidney disease with stage 1 through stage 4 chronic kidney disease, or unspecified chronic kidney disease; N18.9 Chronic kidney disease, unspecified; Z85.9 Personal history of malignant neoplasm, unspecified; Z79.02 Long term (current) use of antithrombotics/antiplatelets; Z90.5 Acquired absence of kidney; Z88.6 Allergy status to analgesic agent; Z88.5 Allergy status to narcotic agent; Z88.2 Allergy status to sulfonamides
CPT/HCPCS: 82565; 96365; J3260

== ENCOUNTER 2020-02-26 08:41 | Day surgery (SDC) | payer OTHER ==
[~2020-02-26 08:41] MED LIST changes: +FURO20 PO; +POTA10T PO; +ZINC15 PO
[2020-02-26 16:24] LABS: Creatinine, Blood 1.45 mg/dL (0.40-1.00)
[2020-02-26 16:27] LABS: Tobramycin, Trough 2.3 ug/mL (0.0-1.9)
== END 2020-02-26 16:37 | disposition home or self-care (01) ==
LOC: ATC 08:41
PROVIDERS: Urology
DX: N39.0 Urinary tract infection, site not specified (principal); I12.9 Hypertensive chronic kidney disease with stage 1 through stage 4 chronic kidney disease, or unspecified chronic kidney disease; E11.22 Type 2 diabetes mellitus with diabetic chronic kidney disease; N18.30 Chronic kidney disease, stage 3 unspecified; N25.81 Secondary hyperparathyroidism of renal origin; D63.1 Anemia in chronic kidney disease; D50.9 Iron deficiency anemia, unspecified; E78.00 Pure hypercholesterolemia, unspecified; E55.9 Vitamin D deficiency, unspecified; E11.21 Type 2 diabetes mellitus with diabetic nephropathy; M81.0 Age-related osteoporosis without current pathological fracture; Z79.02 Long term (current) use of antithrombotics/antiplatelets; Z79.2 Long term (current) use of antibiotics; Z79.51 Long term (current) use of inhaled steroids; Z79.899 Other long term (current) drug therapy; Z20.822 Contact with and (suspected) exposure to COVID-19; Z88.2 Allergy status to sulfonamides; Z88.5 Allergy status to narcotic agent; Z88.6 Allergy status to analgesic agent
CPT/HCPCS: 36415; 80200; 82565

== ENCOUNTER 2020-02-27 01:58 | Day surgery (SDC) | payer OTHER | END 2020-02-27 17:03 | disposition home or self-care (01) | LOC: ATC 01:58 | DX: N39.0 Urinary tract infection, site not specified (principal); I12.9 Hypertensive chronic kidney disease with stage 1 through stage 4 chronic kidney disease, or unspecified chronic kidney disease; E11.22 Type 2 diabetes mellitus with diabetic chronic kidney disease; N18.30 Chronic kidney disease, stage 3 unspecified; N25.81 Secondary hyperparathyroidism of renal origin; D63.1 Anemia in chronic kidney disease; D50.9 Iron deficiency anemia, unspecified; E78.00 Pure hypercholesterolemia, unspecified; E55.9 Vitamin D deficiency, unspecified; E11.21 Type 2 diabetes mellitus with diabetic nephropathy; M81.0 Age-related osteoporosis without current pathological fracture; Z79.02 Long term (current) use of antithrombotics/antiplatelets; Z79.2 Long term (current) use of antibiotics; Z79.51 Long term (current) use of inhaled steroids; Z79.899 Other long term (current) drug therapy; Z20.822 Contact with and (suspected) exposure to COVID-19; Z88.2 Allergy status to sulfonamides; Z88.5 Allergy status to narcotic agent; Z88.6 Allergy status to analgesic agent | CPT/HCPCS: 96365; J3260 ==

== ENCOUNTER 2020-02-28 00:29 | Day surgery (SDC) | payer OTHER | END 2020-02-28 22:44 | disposition home or self-care (01) | LOC: ATC 00:29 | DX: N39.0 Urinary tract infection, site not specified (principal); I12.9 Hypertensive chronic kidney disease with stage 1 through stage 4 chronic kidney disease, or unspecified chronic kidney disease; E11.22 Type 2 diabetes mellitus with diabetic chronic kidney disease; N18.30 Chronic kidney disease, stage 3 unspecified; N25.81 Secondary hyperparathyroidism of renal origin; D63.1 Anemia in chronic kidney disease; D50.9 Iron deficiency anemia, unspecified; E78.00 Pure hypercholesterolemia, unspecified; E55.9 Vitamin D deficiency, unspecified; E11.21 Type 2 diabetes mellitus with diabetic nephropathy; M81.0 Age-related osteoporosis without current pathological fracture; Z79.02 Long term (current) use of antithrombotics/antiplatelets; Z79.2 Long term (current) use of antibiotics; Z79.51 Long term (current) use of inhaled steroids; Z79.899 Other long term (current) drug therapy; Z20.822 Contact with and (suspected) exposure to COVID-19; Z88.2 Allergy status to sulfonamides; Z88.5 Allergy status to narcotic agent; Z88.6 Allergy status to analgesic agent ==

== ENCOUNTER 2020-02-29 01:25 | Day surgery (SDC) | payer OTHER ==
--- NOTE | 2020-02-29 16:38 | NUR ---
LABS DRAWN FROM IV START PER HOSPITAL PROTOCOL
--- NOTE | 2020-02-29 16:41 | NUR ---
LABS DRAWN FROM IV START PER PROTOCOL
[2020-02-29 17:02] LABS: Tobramycin, Trough 1.1 ug/mL (0.0-1.9)
== END 2020-02-29 18:09 | disposition home or self-care (01) ==
LOC: ATC 01:25
PROVIDERS: Nurse Practitioner Primary Care
DX: N39.0 Urinary tract infection, site not specified (principal); I12.9 Hypertensive chronic kidney disease with stage 1 through stage 4 chronic kidney disease, or unspecified chronic kidney disease; E11.22 Type 2 diabetes mellitus with diabetic chronic kidney disease; N18.30 Chronic kidney disease, stage 3 unspecified; N25.81 Secondary hyperparathyroidism of renal origin; D63.1 Anemia in chronic kidney disease; D50.9 Iron deficiency anemia, unspecified; E78.00 Pure hypercholesterolemia, unspecified; E55.9 Vitamin D deficiency, unspecified; E11.21 Type 2 diabetes mellitus with diabetic nephropathy; M81.0 Age-related osteoporosis without current pathological fracture; Z79.02 Long term (current) use of antithrombotics/antiplatelets; Z79.2 Long term (current) use of antibiotics; Z79.51 Long term (current) use of inhaled steroids; Z79.899 Other long term (current) drug therapy; Z20.822 Contact with and (suspected) exposure to COVID-19; Z88.2 Allergy status to sulfonamides; Z88.5 Allergy status to narcotic agent; Z88.6 Allergy status to analgesic agent
CPT/HCPCS: 80200; 82565; 96365; J3260

== ENCOUNTER 2020-03-01 00:17 | Day surgery (SDC) | payer OTHER | END 2020-03-01 22:39 | LOC: ATC 00:17 | DX: N39.0 Urinary tract infection, site not specified (principal); I12.9 Hypertensive chronic kidney disease with stage 1 through stage 4 chronic kidney disease, or unspecified chronic kidney disease; E11.22 Type 2 diabetes mellitus with diabetic chronic kidney disease; N18.30 Chronic kidney disease, stage 3 unspecified; N25.81 Secondary hyperparathyroidism of renal origin; D63.1 Anemia in chronic kidney disease; D50.9 Iron deficiency anemia, unspecified; E78.00 Pure hypercholesterolemia, unspecified; E55.9 Vitamin D deficiency, unspecified; E11.21 Type 2 diabetes mellitus with diabetic nephropathy; M81.0 Age-related osteoporosis without current pathological fracture; Z79.02 Long term (current) use of antithrombotics/antiplatelets; Z79.2 Long term (current) use of antibiotics; Z79.51 Long term (current) use of inhaled steroids; Z79.899 Other long term (current) drug therapy; Z20.822 Contact with and (suspected) exposure to COVID-19; Z88.2 Allergy status to sulfonamides; Z88.5 Allergy status to narcotic agent; Z88.6 Allergy status to analgesic agent ==

== ENCOUNTER 2020-03-02 00:14 | Day surgery (SDC) | payer OTHER | END 2020-03-02 16:53 | disposition home or self-care (01) | LOC: ATC 00:14 | DX: N39.0 Urinary tract infection, site not specified (principal); I12.9 Hypertensive chronic kidney disease with stage 1 through stage 4 chronic kidney disease, or unspecified chronic kidney disease; N18.30 Chronic kidney disease, stage 3 unspecified; D63.1 Anemia in chronic kidney disease; D50.9 Iron deficiency anemia, unspecified; E11.21 Type 2 diabetes mellitus with diabetic nephropathy; E11.22 Type 2 diabetes mellitus with diabetic chronic kidney disease; Z79.2 Long term (current) use of antibiotics; Z79.02 Long term (current) use of antithrombotics/antiplatelets; Z79.899 Other long term (current) drug therapy; Z88.6 Allergy status to analgesic agent; Z88.5 Allergy status to narcotic agent; Z88.8 Allergy status to other drugs, medicaments and biological substances; Z20.822 Contact with and (suspected) exposure to COVID-19 | CPT/HCPCS: 96365; J3260 ==

== ENCOUNTER 2020-04-14 20:18 | Emergency (ER) | payer OTHER ==
[~2020-04-14] VITALS: Ht 160 cm; Wt 77.1 kg
[2020-04-14] MEDS ORDERED: IRON PO (21:04)
[2020-04-14 21:08] LABS: BASOPHILS ABSOLUTE AUTO 0.02 K/mm3 (0.00-0.23); BASOPHILS PERCENT AUTO 0 % (0-2); EOSINOPHILS ABSOLUTE AUTO 0.17 K/mm3 (0.00-0.68); EOSINOPHILS PERCENT AUTO 2 % (0-6); Hematocrit 35.3 % (33.0-51.0); Hemoglobin 12.1 g/dL (11.5-16.0); IMMATURE GRAN ABSOLUTE AUTO 0.03 K/mm3 (0.00-0.10); IMMATURE GRAN PERCENT AUTO 0 % (0-1); LYMPHOCYTES PERCENT AUTO 24 % (21-46); MONOCYTES ABSOLUTE AUTO 0.79 K/mm3 (0.16-1.47); MONOCYTES PERCENT AUTO 10 % (4-13); Mean Corpuscular HGB 29.4 pg (26.0-34.0); Mean Corpuscular HGB Conc 34.3 g/dL (31.5-36.5); Mean Corpuscular Volume 86 fL (80-100); Mean Platelet Volume 10.2 fL (9.1-12.4); NEUTROPHILS ABSOLUTE AUTO 5.22 K/mm3 (1.96-9.15); NEUTROPHILS PERCENT AUTO 63 % (41-73); Platelet Count 147 K/mm3 (150-400); RDW Coefficient Variation 14.3 % (11.7-14.2); Red Blood Cell Count 4.11 M/mm3 (3.80-5.20); White Blood Cell Count 8.23 K/mm3 (4.00-11.30)
[2020-04-14 21:16] LABS: Albumin, Blood 3.6 g/dL (3.4-5.0); Bilirubin, Total 0.4 mg/dL (0.1-1.0); Bun/Creatinine Ratio 35.5 (12.0-20.0); Calcium, Blood 8.5 mg/dL (8.5-10.1); Creatine Kinase MB 2.4 ng/mL (0.0-3.6); Creatine Kinase MB Index 3.4 (0.0-4.0); Creatinine, Blood 1.55 mg/dL (0.40-1.00); Globulin, Blood 3.7 g/dL (2.2-4.0); Potassium, Blood 3.5 mmol/L (3.5-5.5); Total Protein, Blood 7.3 g/dL (6.4-8.2)
[2020-04-14 21:19] LABS: Source, Urine Clean Catch
[2020-04-14 21:21] LABS: Bilirubin, Urine Neg (Neg); Blood, Urine 3+ (Neg); Glucose Qualitative, Urine Neg (Neg); Ketones, Urine Neg (Neg); Leukocyte Esterase, Urine 3+ (Neg); Nitrite, Urine Neg (Neg); Protein, Urine 3+ (Neg); Urobilinogen, Urine NORM (Normal); pH, Urine 6.5 (5.0-8.0)
[2020-04-14 21:27] LABS: Appearance, Urine Hazy (Clear); Color, Urine Pale Yellow (P-Yellow)
[2020-04-14 21:28] LABS: Bacteria Many /hpf; Red Blood Cells, Urine 0-2 /hpf (0-2); Squamous Epithelial Cells Not Seen /hpf (Few); White Blood Cells, Urine TNTC /hpf (0-5)
[2020-04-14] MEDS ORDERED: CEPH500 PO (23:04)
== END 2020-04-15 00:20 | disposition home or self-care (01) ==
LOC: ER 20:18
PROVIDERS: Physician Assistant
DX: N39.0 Urinary tract infection, site not specified (principal); Z88.2 Allergy status to sulfonamides; Z88.6 Allergy status to analgesic agent; Z79.02 Long term (current) use of antithrombotics/antiplatelets; W18.30XA Fall on same level, unspecified, initial encounter
CPT/HCPCS: 36415; 70450; 72125; 73522; 80053; 81001; 82550; 82553; 85025; 87086; 93005; 93010; 96365; 99285-25; J0696; J7030

== ENCOUNTER 2020-05-06 00:07 | Day surgery (SDC) | payer OTHER ==
[~2020-05-06 00:07] MED LIST changes: +IRON PO
== END 2020-05-06 14:28 | disposition home or self-care (01) ==
LOC: ATC 00:07
DX: N39.0 Urinary tract infection, site not specified (principal); I12.9 Hypertensive chronic kidney disease with stage 1 through stage 4 chronic kidney disease, or unspecified chronic kidney disease; N18.32 Chronic kidney disease, stage 3b; D63.1 Anemia in chronic kidney disease; N25.81 Secondary hyperparathyroidism of renal origin
CPT/HCPCS: 96365; J0696

== ENCOUNTER 2020-05-07 01:57 | Day surgery (SDC) | payer OTHER | END 2020-05-07 13:58 | disposition home or self-care (01) | LOC: ATC 01:57 | DX: N39.0 Urinary tract infection, site not specified (principal); I12.9 Hypertensive chronic kidney disease with stage 1 through stage 4 chronic kidney disease, or unspecified chronic kidney disease; N18.32 Chronic kidney disease, stage 3b; D63.1 Anemia in chronic kidney disease; N25.81 Secondary hyperparathyroidism of renal origin; D50.9 Iron deficiency anemia, unspecified; E55.9 Vitamin D deficiency, unspecified; Z88.2 Allergy status to sulfonamides | CPT/HCPCS: 96365; J0696 ==

== ENCOUNTER 2020-05-08 00:29 | Day surgery (SDC) | payer OTHER | END 2020-05-08 14:09 | disposition home or self-care (01) | LOC: ATC 00:29 | DX: N39.0 Urinary tract infection, site not specified (principal); I12.9 Hypertensive chronic kidney disease with stage 1 through stage 4 chronic kidney disease, or unspecified chronic kidney disease; N18.32 Chronic kidney disease, stage 3b; N25.81 Secondary hyperparathyroidism of renal origin; E55.9 Vitamin D deficiency, unspecified | CPT/HCPCS: 96365; J0696 ==

== ENCOUNTER 2020-05-09 00:14 | Day surgery (SDC) | payer OTHER | END 2020-05-09 14:05 | disposition home or self-care (01) | LOC: ATC 00:14 | DX: N39.0 Urinary tract infection, site not specified (principal); I12.9 Hypertensive chronic kidney disease with stage 1 through stage 4 chronic kidney disease, or unspecified chronic kidney disease; N18.32 Chronic kidney disease, stage 3b; D63.1 Anemia in chronic kidney disease; N25.81 Secondary hyperparathyroidism of renal origin; D50.9 Iron deficiency anemia, unspecified; E86.9 Volume depletion, unspecified; R80.9 Proteinuria, unspecified; E87.1 Hypo-osmolality and hyponatremia; E87.6 Hypokalemia; E55.9 Vitamin D deficiency, unspecified; I71.2 Thoracic aortic aneurysm, without rupture; Z95.5 Presence of coronary angioplasty implant and graft; Z88.2 Allergy status to sulfonamides | CPT/HCPCS: 96365; J0696 ==

== ENCOUNTER 2020-05-10 02:07 | Day surgery (SDC) | payer OTHER | END 2020-05-10 14:02 | disposition home or self-care (01) | LOC: ATC 02:07 | DX: N39.0 Urinary tract infection, site not specified (principal); I12.9 Hypertensive chronic kidney disease with stage 1 through stage 4 chronic kidney disease, or unspecified chronic kidney disease; N18.32 Chronic kidney disease, stage 3b; N25.81 Secondary hyperparathyroidism of renal origin; E55.9 Vitamin D deficiency, unspecified; Z88.2 Allergy status to sulfonamides | CPT/HCPCS: 96365; J0696 ==

== ENCOUNTER 2020-05-26 00:47 | Inpatient (IN) | payer OTHER ==
[~2020-05-26] VITALS: Ht 160 cm; Wt 69.3 kg
[2020-05-26 01:27] LABS: BASOPHILS ABSOLUTE AUTO 0.02 K/mm3 (0.00-0.23); BASOPHILS PERCENT AUTO 0 % (0-2); EOSINOPHILS ABSOLUTE AUTO 0.07 K/mm3 (0.00-0.68); EOSINOPHILS PERCENT AUTO 1 % (0-6); Hematocrit 33.6 % (33.0-51.0); Hemoglobin 11.2 g/dL (11.5-16.0); IMMATURE GRAN ABSOLUTE AUTO 0.07 K/mm3 (0.00-0.10); IMMATURE GRAN PERCENT AUTO 1 % (0-1); LYMPHOCYTES ABSOLUTE AUTO 2.37 K/mm3 (0.84-5.20); LYMPHOCYTES PERCENT AUTO 18 % (21-46); MONOCYTES ABSOLUTE AUTO 1.49 K/mm3 (0.16-1.47); MONOCYTES PERCENT AUTO 11 % (4-13); Mean Corpuscular HGB 30.7 pg (26.0-34.0); Mean Corpuscular HGB Conc 33.3 g/dL (31.5-36.5); Mean Corpuscular Volume 92 fL (80-100); Mean Platelet Volume 9.8 fL (9.1-12.4); NEUTROPHILS ABSOLUTE AUTO 9.31 K/mm3 (1.96-9.15); NEUTROPHILS PERCENT AUTO 70 % (41-73); Platelet Count 157 K/mm3 (150-400); RDW Coefficient Variation 12.8 % (11.7-14.2); Red Blood Cell Count 3.65 M/mm3 (3.80-5.20); White Blood Cell Count 13.33 K/mm3 (4.00-11.30)
[2020-05-26] MEDS ORDERED: ZINC50 M3 PO (01:43)
[2020-05-26] MEDS ORDERED: DONE5 PO (01:48)
[2020-05-26 02:02] LABS: Albumin/Globulin Ratio 0.7 (0.8-1.8); Bilirubin, Total 0.5 mg/dL (0.1-1.0); Bun/Creatinine Ratio 34.4 (12.0-20.0); Calcium, Blood 9.1 mg/dL (8.5-10.1); Creatinine, Blood 1.63 mg/dL (0.40-1.00); Globulin, Blood 4.1 g/dL (2.2-4.0); Potassium, Blood 3.7 mmol/L (3.5-5.5); Total Protein, Blood 7.1 g/dL (6.4-8.2)
[2020-05-26 02:05] LABS: Troponin I 1.06 ng/mL (0.000-0.040)
[2020-05-26 02:31] LABS: PCO2 Arterial 37.6 mmHg (35-45); PO2 Arterial 63.4 mmHg (80-100); pH Blood Arterial 7.41 (7.35-7.45)
--- NOTE | 2020-05-26 06:19 | NUR ---
ADMIT AND TRANSFER TO ICU PT TO ROOM FROM ER @0419. DENYING CP. AXO. ON 2LNC. VSS. THIS RN BEGAN ADMISSION. HEPARIN GTT STARTED AT 0441. 0510- UPON HEALTH HX, PT STARTED HAVING SEVERE CP 10/10. YELLING OUT IN PAIN. CLUTCHING CHEST. STATES RADIATION TO L ARM. EKG ACCQUIRD, TELE HOWS SOME ST CHANGES, ESPECIALLY IN LEAD II. EKG SHOWS POSSIBLE STEMI. DR GARCIA CALLED, JOSE EXAMINED EKG AND FELT NECESSARY TO CALL DR DARÍO RIBERA. 0521- IN THE MEANTIME, PT GIVEN ANOTHER ONE TIME DOSE OF NITROGLYCERIN. THIS RELIEVED PT'S PAIN TO 8/10. DR DARÍO RIBERA VIEWED CURRENT EKG AND PRIORS IN ER. STATES NOT BELIEVING PT HAVING CURRENT ID BUT STILL FELT NEED TO PLACE ON NITROGLYCERIN GTT AND SENT TO ICU. PT AGREES TO THIS WITH DISCUSSION, PT MAINTAINS DNR STATUS BUT STATES BEING OK WITH ANGIOGRAM IF NEEDED. PT O2 REQUIREMENTS INCREASING, UP TO 11L HIFLO FROM PREVIOUS 2LNC. 0550- REPORT GIVEN TO HILARY STOCK GRADER. PT BELONGINGS WITH PT. PT TO ICU RM 08.
--- NOTE | 2020-05-26 07:19 | NUR ---
CARE ASSUMED 0550 Pt transfered to ICU 8 via gurney from U-11. Pt A/O to location and event. States year of 2019 and unable to state month/date. Updated on date. Pt states she had SOB and chest pain at home that resulted in her coming to ED. Pt states CP of 10 and denies SOB currently. Pt on 7 L via high flow NC, SPO2 > 95%. BP stable. Pt appears to have elevated ST. Will continue to monitor. Nichols in place with scant amount of yellow cloudy urine. Pt states she wears a nichols at home due to incontinence. Recieved critical lab results of lactic acid, 2.3. Dr. Spencer updated. Call light within reach.
--- NOTE | 2020-05-26 07:25 | NUR ---
Code Status: DNI Discussed code status with patient and pt states she would like everything done except a "tube down my throat." Charge nurse Camille at bedside during this time. Code status changed to DNI and Dr. Spencer updated.
--- NOTE | 2020-05-26 07:45 | NUR ---
ASSUMED CARE / DR PONCE: REPORT RECEIVED FROM CHRISSIE Lauren RN. ASSUMED CARE OF THIS PT AT APPROX 0700. ON ASSESSMENT, THE PT IS RESTING QUIETLY & AWAKENS EASILY TO VERBAL STIMULUS. THE PT HAS A HX OF DEMENTIA & IS ALERT/ ORIENTED TO SELF & FOLLOWING DIRECTIONS. SHE IS FORGETFUL TO PLACE, TIME & DATE, STATING THAT THE CURRENT PRESIDENT IS FREEDMAN. LS ARE WHEEZY IN UPPER LOBES & COARSE CRACKLES IN LOWER LOBES. THE PT IS CURRENTLY ON 7L HI-FLOW NC W/ O2 SATS > 92%. MONITOR SHOWS ST W/ HR 100s, BP STABLE. PT HAS C/O 4/10 CHEST PAIN, INCREASING PER PT REPORT. SHE HAS NO GI COMPLAINTS & IS CURRENTLY NPO PER NURSING R/T PENDING CARDIO CONSULT. CHRONIC GILLETTE IN PLACE THAT WAS CHANGED IN ED ON ARRIVAL, PER REPORT. UA NOT COLLECTED AT THAT TIME, WILL COLLECT & SEND SPECIMEN TO LAB. SKIN CONDITION OVERALL CDI, Q2H REPOSITIONING TO MAINTAIN SKIN INTEGRITY. DR PONCE IN UNIT THIS AM & REQUESTS THAT NITRO DRIP BE STOPPED THE PT HAS A HX OF SEVERE AORTIC STENOSIS. SHE HAS BEEN AT BEDSIDE & DISCUSSED POOR PROGNOSIS W/ THE PT. THE PT IS AGREEABLE TO DNR CODE STATUS, COMFORT MEASURES & TRANSITION TO HOSPICE. WHEN SPEAKING W/ THE PT's DAUGHTER IN LAW, CYDNEY, DR PONCE FINDS OUT THAT THE PT's FAMILY WAS PLANNING TO INITIATE HOSPICE R/T PT's DECLINE IN APPROX [address] PONCE HAS ATTEMPTED TO CONTACT DR SALAZAR R/T THIS CONVERSATION & LEFT A MESSAGE FOR RETURN. WILL CONTINUE TO MONITOR & UPDATE NEEDED.
--- NOTE | 2020-05-26 10:47 | NUR ---
DR Aquiles CHANEL (CARDIO) / DR Yuri SALAZAR: DR CHANEL AT BEDSIDE TO EVAL PT THIS AM. THERE IS SOME CONCERN REGARDING POSSIBLE COVID-19 R/T PT's SYMPTOMS. THIS RN HAS NOTIFIED THE PROVIDER THAT A RAPID COVID-19 TEST WAS COMPLETED IN THE ED & DOCUMENTED NEGATIVE. THIS RN HAS ALSO UPDATED HIM ON PT's INTENT TO TRANSITION TO COMFORT MEASURES & HOSPICE CARE INSTEAD OF PURSUING FURTHER INTERVENTION. DR Yuri SALAZAR AT BEDSIDE TO EVAL THIS AM. HE IS AGREEABLE TO THIS PLAN OF COMFORT MEASURES & HOSPICE CARE. VELVET Flores, PALLIATIVE CARE RN, ALSO AT BEDSIDE DURING THIS TIME & PLANS TO PLACE COMFORT CARE ORDERS.
--- NOTE | 2020-05-26 11:39 | NUR ---
CARE COORDINATION REFERRAL - ADMIT:05/26/20 DISCHARGE: 05/27/20 DX: RESPIRATORY FAILURE CC: CPEABODY ADMIT: 09/13/19 DISCHARGE: 09/16/19 DX: PNEUMONIA CC: CPEABODY ADMIT: 08/28/19 DISCHARGE: 09/04/19 DX: SEPSIS CC: CPEABODY KJ CALL: RETURN HOME FOR HOSPICE SERVICES. S/W CYDNEY, CALL ANGELINA FOR KJ RESIDENCE: HOME CAREGIVER: ANGELINA PAGAN, FRIEND, CYDNEY TYLER, FAMILY MEMBER, DX: ACUTE HYPOXEMIC RESP. FAILURE, CHRONIC RENAL FAILURE, COPD, SEE LIST DME: DM SUPPLIES, GLUCOSE METER, DEPENDS, PORTABLE O2 ([facility]) CCM: NO RECORD HOME HEALTH: ORDERING HOSPICE SERVICES FROM [email or web address] PT RESUME HOME HEALTH AT DISCHARGE. [facility] [phone] + 2019 ADMIT: 05/26/20 05/26/20 DR FLORES S/W PATIENT AND CURT LAMAS, AGREED ON HOSPICE SERVICES. [employer] HAS AVAILABILITY FOR SUNDAY. BRIANNA CONTACTED [facility]. ORDER SIGNED BY DR SALAZAR. IMPRESSION: 1. 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 2. BILATERAL PNEUMONIA. WE WILL PUT THE PATIENT ON ZOSYN. SPUTUM CULTURES AND PROBIOTICS. 3. SEVERE SEPSIS, PRESENT ON ADMISSION GIVEN PNEUMONIA, TACHYCARDIA, ELEVATED WHITE COUNT, AND ACUTE ON CHRONIC HYPOXIC RESPIRATORY FAILURE. BLOOD PRESSURE IS STABLE, CURRENTLY AT 133/62, AND THERE IS CONCERN FOR CONGESTIVE HEART FAILURE AND PENDING BNP LEVEL, HENCE I WILL NOT INITIATE FLUIDS CURRENTLY. THE PATIENT ON ANTIBIOTICS AND BLOOD CULTURE AND SPUTUM CULTURE ORDERED.
--- NOTE | 2020-05-26 13:27 | NUR ---
Echocardiogram completed.
[2020-05-26 13:28] LABS: Source, Urine Catheter
[2020-05-26 13:35] LABS: Appearance, Urine Clear (Clear); Bilirubin, Urine Neg (Neg); Blood, Urine 3+ (Neg); Color, Urine Yellow (P-Yellow); Glucose Qualitative, Urine Neg (Neg); Ketones, Urine Neg (Neg); Leukocyte Esterase, Urine 2+ (Neg); Nitrite, Urine Neg (Neg); Protein, Urine 4+ (Neg); Specific Gravity, Urine 1.015 (1.003-1.022); Urobilinogen, Urine NORM (Normal)
[2020-05-26 13:54] LABS: Bacteria Many /hpf; Granular Casts 0-2 /lpf (0); Squamous Epithelial Cells Not Seen /hpf (Few)
--- NOTE | 2020-05-26 16:20 | NUR ---
TRANSFER TO MEDICAL FLOOR: REPORT HAS BEEN GIVEN TO JEEVAN CADET RN TO ASSUME CARE. CHART, MEDS & BELONGINGS HAVE BEEN TAKEN OUT OF UNIT W/ PT. PT TRANSFERRED VIA BED BY DARRON MCCURDY, AT APPROX 1610 TO ROOM 330. AT TIME OF TRANSFER, THE PT DENIES PAIN, DISCOMFORT OR ANXIETY.
--- NOTE | 2020-05-26 18:20 | NUR ---
SHIFT SUMMARY PT TRANSFERRED TO UNIT APPROXIMATELY 1630 THIS SHIFT FROM ICU 8, RECEIVED REPORT FROM DOMINIQUE LINARES. PATIENT A&O TO SELF, FAMILY, AND LOCATION. PLEASANT AND COOPERATIVE TO CARE. ABLE TO MAKE NEEDS KNOWN. PT MEDICATED FOR PAIN PER EMAR. PT ON COMFORT CARE MEASURES. PT CURRENTLY IN BED WITH FAMILY AT BEDSIDE. CALM AND COMFORTABLE IN BED AT THIS TIME. NO S/S OF ANY DISTRESS. BED AT LOWEST POSITION. CALL LIGHT WITHIN REACH.
--- NOTE | 2020-05-26 18:34 | NUR ---
Spiritual care note: appears frail and tired. She was appreciative of prayer and comfort through touch. Assured her of excellent care/attention. No family present throughout day. She appears comfortable and well cared-for by nursing. I will remain available.
--- NOTE | 2020-05-27 05:34 | NUR ---
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facility] AND TO CALL THEM IMMEDIATELY IF PT WAS TO PASS SO THAT THEY COULD MAKE A DECISION WHETHER OR NOT TO GO BACK HOME. PT CURRENTLY RESTING BUT DOES WAKE UP TO VOICE AND STILL ABLE TO COMMUNICATE WELL. WILL CONTINUE TO PROVIDE COMFORT MEASURES.
--- NOTE | 2020-05-27 12:59 | NUR ---
PATIENT AT 1247 05/27/2020, PATIENT WAS COMFORTABLE THROUGHOUT SHIFT, MEDICATED FOR PAIN AND ANXIETY PER EMAR. REPOSITIONED Q2 AND NEEDED. NOTIFIED DR. SALAZAR VIA PHONE CALL. ATTEMPTED TO CONTACT FAMILY, AWAITING CALL BACK. POST MORTEM CARE PROVIDED.
--- NOTE | 2020-05-27 17:48 | NUR ---
Spiritual care note: Carlene appeared comfortable and did not respond to voice or touch. I sat with ehr for a while providing presence and prayer for a peaceful transition. Within @30 minutes she passed peacefully and quietly. I waited for care-customer success representative, Katt, who was on the phone with pt's dtr when she arrived. Dtr gave permission for Katt to take braclet and belongings bag. Family states [facility] has all arrangements pre-paid. Katt was tearful, but clearly loving and appropriate. Offered emotional affirmation and complimented her obvious love for Carlene. Héctor did not stay long. No family arriving per Katt.
== END 2020-05-27 12:47 | DRG 871 ==
LOC: ER 00:47 → ICUE 04:13 → PCU 04:13 → ICUE 05:48 → MEDS 16:15
PROVIDERS: Emergency Medicine; ADMIT Family Medicine
DX: A41.9 Sepsis, unspecified organism (principal); J18.9 Pneumonia, unspecified organism; J96.21 Acute and chronic respiratory failure with hypoxia; I21.4 Non-ST elevation (NSTEMI) myocardial infarction; I26.99 Other pulmonary embolism without acute cor pulmonale; Z66 Do not resuscitate; Z51.5 Encounter for palliative care; J44.1 Chronic obstructive pulmonary disease with (acute) exacerbation; E87.1 Hypo-osmolality and hyponatremia; R94.31 Abnormal electrocardiogram [ECG] [EKG]; I35.0 Nonrheumatic aortic (valve) stenosis; R65.20 Severe sepsis without septic shock; I25.10 Atherosclerotic heart disease of native coronary artery without angina pectoris; E78.5 Hyperlipidemia, unspecified; F03.90 Unspecified dementia, unspecified severity, without behavioral disturbance, psychotic disturbance, mood disturbance, and anxiety; G47.33 Obstructive sleep apnea (adult) (pediatric); I12.9 Hypertensive chronic kidney disease with stage 1 through stage 4 chronic kidney disease, or unspecified chronic kidney disease; N18.30 Chronic kidney disease, stage 3 unspecified; E11.42 Type 2 diabetes mellitus with diabetic polyneuropathy; K21.9 Gastro-esophageal reflux disease without esophagitis; E11.51 Type 2 diabetes mellitus with diabetic peripheral angiopathy without gangrene; I73.9 Peripheral vascular disease, unspecified; H35.30 Unspecified macular degeneration; E11.22 Type 2 diabetes mellitus with diabetic chronic kidney disease; D63.1 Anemia in chronic kidney disease; R33.9 Retention of urine, unspecified; Z88.6 Allergy status to analgesic agent; Z88.2 Allergy status to sulfonamides; Z88.8 Allergy status to other drugs, medicaments and biological substances; Z88.5 Allergy status to narcotic agent; Z79.02 Long term (current) use of antithrombotics/antiplatelets; Z79.899 Other long term (current) drug therapy; Z86.73 Personal history of transient ischemic attack (TIA), and cerebral infarction without residual deficits; Z90.49 Acquired absence of other specified parts of digestive tract; Z98.890 Other specified postprocedural states; Z90.89 Acquired absence of other organs; Z90.710 Acquired absence of both cervix and uterus; Z99.81 Dependence on supplemental oxygen; Z87.891 Personal history of nicotine dependence
CPT/HCPCS: 36415; 36600; 71045; 80053; 81001; 82803; 82947; 83605; 83880; 84484; 85025; 85730; 87040; 87077; 87086; 87186; 93005; 93010; 93306; 94640; 94644; 94760; 96374; 99285-25; A9270; A9270-GY; J1644; J2060; J2270; J2543; J3010